=== PATIENT | female | born 1950 | race Caucasian/White ===

== ENCOUNTER 2017-09-09 10:12 | Inpatient (IN) | payer OTHER, MEDICARE ==
[2017-09-09] VITALS (19 sets, daily range): BP systolic 82–146; BP diastolic 59–86; PULSE 89–140; RESP 15–41; TEMP 97.8–98.6; O2SAT 83–100
[~2017-09-09] VITALS: Ht 167.6 cm; Wt 79.0 kg
[~2017-09-09 10:12] MED LIST: LORT5TAB PO; NAPR550 PO
[2017-09-09] MEDS ORDERED: ASPIRIN 81 MG CHEW TAB PO STA (10:20)
[2017-09-09] MEDS ORDERED: NITROGLYCERIN 0.4 MG SL 25 TABS/BTL SL STA (10:20)
[2017-09-09] MEDS ORDERED: SODIUM CHLOR 0.9% 1000 ML INJ 1,000 ML IV ONE (10:20)
[2017-09-09] MEDS ORDERED: HEPARIN SODIUM - IV 10,000 UNITS/10 ML VIAL IV PUSH STA (10:20)
[2017-09-09] MEDS ORDERED: NITROGLYCERIN-D5W 50 MG/250 ML 250 ML IV PRN (10:30)
[2017-09-09] MEDS ORDERED: SODIUM CHLORIDE 0.9% FLUSH 10 ML FLUSH IVF PRN (10:30)
[2017-09-09] MEDS ORDERED: METOPROLOL TARTRATE 5 MG/5 ML VIAL IV PUSH ONE (10:30)
[2017-09-09 10:47] LABS: AUTOMATED NEUTROPHIL # 10.1 TH/MM3 (1.8-7.7); BASOPHIL # 0.1 TH/MM3 (0-0.2); BASOPHIL % 0.9 % (0.0-2.0); EOSINOPHIL # 0.1 TH/MM3 (0-0.4); EOSINOPHIL % 0.4 % (0.0-4.0); HEMOGLOBIN 16.1 GM/DL (11.6-15.3); LYMPH % 17.5 % (9.0-44.0); LYMPHOCYTE # 2.5 TH/MM3 (1.0-4.8); MEAN CORPUSCULAR HEMOGLOBIN 35.3 PG (27.0-34.0); MEAN CORPUSCULAR HGB CONC 34.9 % (32.0-36.0); MEAN PLATELET VOLUME 9.1 FL (7.0-11.0); MONO % 9.9 % (0.0-8.0); MONOCYTE # 1.4 TH/MM3 (0-0.9); NEUT % 71.3 % (16.0-70.0); PLATELET COUNT 236 TH/MM3 (150-450); RED BLOOD COUNT 4.55 MIL/MM3 (4.00-5.30); RED CELL DISTRIBUTION WIDTH 13.5 % (11.6-17.2); WHITE BLOOD COUNT 14.1 TH/MM3 (4.0-11.0)
--- NOTE | 2017-09-09 10:52 | RADRPT ---
EXAM DATE/TIME: 09/09/2017 10:26 [place] COMPARISON: No previous studies available for comparison. INDICATIONS : Stroke alert. MEDICAL HISTORY : Non-responsive SURGICAL HISTORY : Non-responsive. ENCOUNTER: Initial ACUITY: 1 day PAIN SCORE: Non-responsive. LOCATION: Bilateral chest FINDINGS: The lungs are well-inflated. Mild bilateral basal atelectasis. Heart size is moderately enlarged with atherosclerosis is seen within the aortic arch. Prominence of pulmonary vasculature. Osseous structu res are intact. CONCLUSION: Mild cardiomegaly. Cephalization of pulmonary vasculature may be related to volume overload or conges tive heart failure. Danni Rhodes MD on September 09, 2017 at 10:48 Board Certified Radiologist. This report was verified electronically.
[2017-09-09 10:55] LABS: PROTHROMBIN TIME - PATIENT 10.1 SEC (9.8-11.6)
[2017-09-09] MEDS ORDERED: ONDANSETRON HCL 4 MG/2 ML VIAL IV PUSH ONE (11:00)
[2017-09-09 11:07] LABS: CALCIUM 10.2 MG/DL (8.5-10.1); MAGNESIUM 1.6 MG/DL (1.5-2.5)
[2017-09-09 11:15] LABS: TROPONIN I 6.78 NG/ML (0.02-0.05)
[2017-09-09] MEDS: HEPARIN-D5W 25,000 U/250 ML 250 ML IV PRN (11:17)
--- NOTE | 2017-09-09 11:57 | PD ---
HPI Chief Complaint: STEMI Alert Time Seen by Provider: 10:15 Travel History International Travel<30 days: No Contact w/Intl Traveler<30days: No Traveled to known affect area: No History of Present Illness HPI 66-year-old female was brought to the emergency room emergently for chest pain radiating down her left arm as a possible STEMI alert identified by the paramedics with their twelve-lead EKG. Patient has never had coronary artery disease history but does not go to see a primary care either. She is not on any medications and she is a smoker. Patient told me that the pain has been going on for past 2 days and has been continuous. She appeared to be in significant distress and said she was having hard time breathing. She kept trying to sit up in order to get a comfortable position. Patient was tachycardic on the monitor with heart rate in 140s. Blood pressure was not recording by the monitor but manual blood pressure was 90 systolic initially. Patient had received 4 aspirin and 1 sublingual nitro. It was hard to get any further history than this from the patient given her respiratory distress and anxiety. [facility] Past Medical History Narrative Medical List of her past medical, surgical, social and family history is reviewed from the nursing note. Cardiovascular Problems: Yes Diminished Hearing: No Hypertension: Yes Menopausal: No : 1 Para: 1 Tubal Ligation: Yes Past Surgical History Appendectomy: Yes (OVARY REMOVED AT THIS TIME) Social History Alcohol Use: Yes (WINE EVERY NIGHT) Tobacco Use: Yes (1 PPD) Substance Use: No Allergies-Medications (Allergen,Severity, Reaction): Coded Allergies: No Known Allergies (Verified Allergy, Unknown, 09/09/17) Comments No known drug allergies. Reported Meds & Prescriptions Reported Meds & Active Scripts Active No Active Prescriptions or Reported Medications Narrative Medication List of his home medications reviewed from the nursing note. Review of Systems Except as stated in HPI: all other systems reviewed are Neg Cardiovascular: Positive: Chest Pain or Discomfort Respiratory: Positive: Shortness of Breath Physical Exam Narrative GENERAL: Awake, extremely anxious, significant distress SKIN: Focused skin assessment warm/dry. Pale HEAD: Atraumatic. Normocephalic. EYES: Pupils equal and round. No scleral icterus. No injection or drainage. ENT: No nasal bleeding or discharge. Mucous membranes pink and moist. NECK: Trachea midline. No JVD. CARDIOVASCULAR: Regular rate and rhythm. No murmur appreciated. RESPIRATORY: No accessory muscle use. Decreased air entry bilaterally GASTROINTESTINAL: Abdomen soft, non-tender, nondistended. Hepatic and splenic margins not palpable. MUSCULOSKELETAL: No obvious deformities. No clubbing. No cyanosis. No edema. NEUROLOGICAL: Awake and alert. No obvious cranial nerve deficits. Motor grossly within normal limits. Normal speech. PSYCHIATRIC: Appropriate mood and affect; insight and judgment normal. Data Data Last Documented VS Vital Signs Date Time Temp Pulse Resp B/P (MAP) Pulse Ox O2 Delivery O2 Flow Rate FiO2 09/09/17 11:18 107 36 105/75 (85) 100 BiPAP 100 09/09/17 10:25 4.00 09/09/17 10:16 98.6 Orders Orders Troponin I (09/09/17 10:20) Ckmb (Isoenzyme) Profile (09/09/17 10:20) Complete Blood Count With Diff (09/09/17 10:20) I-Stat Profile (09/09/17 10:20) I-Stat Creatinine (09/09/17 10:20) Calcium (09/09/17 10:20) Magnesium (Mg) (09/09/17 10:20) Prothrombin Time / Inr (Pt) (09/09/17 10:20) Act Partial Throm Time (Ptt) (09/09/17 10:20) B-Type Natriuretic Peptide (09/09/17 10:20) Chest, Single Ap (09/09/17 10:20) Electrocardiogram (09/09/17 10:20) Oxygen Administration (09/09/17 10:20) Iv Access Insert/Monitor (09/09/17 10:20) Oximetry (09/09/17 10:20) Sodium Chlor 0.9% 1000 Ml Inj (Ns 1000 M (09/09/17 10:20) Sodium Chloride 0.9% Flush (Ns Flush) (09/09/17 10:30) Aspirin Chew (Aspirin Chew) (09/09/17 10:20) Nitroglycerin Sl (Nitrostat Sl) (09/09/17 10:20) Nitroglycerin-D5w 50 Mg/250 Ml (Nitrogly (09/09/17 10:30) Heparin Inj (Heparin Inj) (09/09/17 10:20) Resp Bipap / Cpap Non Invas Vt (09/09/17 ) Metoprolol Tartrate Inj (Lopressor Inj) (09/09/17 10:30) Heparin-D5w 25,000 U/250 Ml (Heparin-D5w (09/09/17 10:45) Cbc No Diff, Includes Plts (09/12/17 06:00) Act Partial Throm Time (Ptt) (09/09/17 17:31) Occult Blood (Hemoccult) Stool (09/09/17 10:31) Ondansetron Inj (Zofran Inj) (09/09/17 11:00) Arterial Blood Gas (Abg) (09/09/17 10:55) CKMB (09/09/17 10:25) CKMB% (09/09/17 10:25) Furosemide Inj (Lasix Inj) (09/09/17 18:00) Echo 2d Comp With Doppler (09/09/17 ) Aspirin Ec (Ecotrin Ec) (09/10/17 09:00) Consent (09/09/17 11:33) Teaching Record: Cardiac Educa [place].Q12H (09/09/17 11:33) ^ Preps (09/09/17 11:33) ^ Preps (09/09/17 11:33) Bedside Glucose .Prior to procedure (09/09/17 11:33) Diet Npo Except Meds (09/10/17 Breakfast) Tool Planner / Telemetry AMERICA.Q8H (09/09/17 11:33) Admit Order (Ed Use Only) (09/09/17 11:57) Labs Laboratory Tests Test 09/09/17 10:25 09/09/17 10:55 White Blood Count 14.1 TH/MM3 Red Blood Count 4.55 MIL/MM3 Hemoglobin 16.1 GM/DL Bedside Hemoglobin 16.0 G/DL Hematocrit 46.0 % Bedside Hematocrit 47.0 % Mean Corpuscular Volume 101.0 FL Mean Corpuscular Hemoglobin 35.3 PG Mean Corpuscular Hemoglobin Concent 34.9 % Red Cell Distribution Width 13.5 % Platelet Count 236 TH/MM3 Mean Platelet Volume 9.1 FL Neutrophils (%) (Auto) 71.3 % Lymphocytes (%) (Auto) 17.5 % Monocytes (%) (Auto) 9.9 % Eosinophils (%) (Auto) 0.4 % Basophils (%) (Auto) 0.9 % Neutrophils # (Auto) 10.1 TH/MM3 Lymphocytes # (Auto) 2.5 TH/MM3 Monocytes # (Auto) 1.4 TH/MM3 Eosinophils # (Auto) 0.1 TH/MM3 Basophils # (Auto) 0.1 TH/MM3 CBC Comment DIFF FINAL Differential Comment Prothrombin Time 10.1 SEC Prothromb Time International Ratio 1.0 RATIO Activated Partial Thromboplast Time 27.5 SEC Bedside Sodium 132 MMOL/L Bedside Potassium 4.6 MMOL/L Bedside Chloride 100 MMOL/L Bedside Blood Urea Nitrogen 8 MG/DL Bedside Creatinine 0.6 MG/DL Bedside Glucose 180 MG/DL Calcium Level 10.2 MG/DL Magnesium Level 1.6 MG/DL Total Creatine Kinase 534 U/L Creatine Kinase MB 57.4 NG/ML Creatine Kinase MB % 10.7 % Troponin I 6.78 NG/ML B-Type Natriuretic Peptide 1540 PG/ML Blood Gas Puncture Site LT RADIAL Blood Gas Patient Temperature 98.6 Blood Gas HCO3 20 mmol/L Blood Gas Base Excess -5.1 mmol/L Blood Gas Oxygen Saturation 93 % Arterial Blood pH 7.31 Arterial Blood Partial Pressure CO2 41 mmHg Arterial Blood Partial Pressure O2 87 mmHG Arterial Blood Oxygen Content 20.7 Vol % Arterial Blood Carboxyhemoglobin 1.6 % Arterial Blood Methemoglobin 0.8 % Blood Gas Hemoglobin 15.8 G/DL Oxygen Delivery Device BiPAP Blood Gas Ventilator Setting [id number] Blood Gas Inspired Oxygen 100 % [facility] Medical Decision Making Medical Screen Exam Complete: Yes Emergency Medical Condition: Yes Medical Record Reviewed: Yes Interpretation(s) Twelve-lead EKG was reviewed by me. Normal sinus rhythm, tachycardia, ST elevation in V1 and V2, Q waves in V1 and V2, normal axis. Heart rate of 140 bpm. Differential Diagnosis Q-wave WI, STEMI, pulmonary edema Narrative Course 11:48 AM based on the EKG and her presentation I called a STEMI alert. Patient' s last old EKG in our system was from 2007 which showed normal QRS complexes. I discussed the case with Dr. Boyce and he did not want the patient to go to the [employer] [facility] right away. His reasoning was the Q waves and patient being tachycardic. He wanted the patient to be stabilized. Please refer to his dictation as well. Patient was given heparin, Lopressor to bring the heart rate down and was started on BiPAP by me. Currently she is doing much better. Heart rate is down to 100s. Blood pressure has improved and patient says she feels better. Chest pain I was told by the nurse has subsided to some extent although it still there. Patient will be going to the intensive care unit. I discussed the case with Dr. Nix from ICU. He has accepted the case. Chest x- ray shows congestive heart failure. Troponin came back critically high. Critical Care Narrative Aggregate critical care time was 60 minutes. Time to perform other separately billable procedures was not included in the critical care time. My time did not include minutes spent treating any other patients simultaneously or on activities that did not directly contribute to the patient's treatment. The services I provided to this patient were to treat and/or prevent clinically significant deterioration that could result in: ST elevation WI with Q waves, heparin bolus and drip, severe respiratory distress, BiPAP I provided critical care services requiring my management, as noted below: Chart data review, documentation time, medication orders and management, vital sign assessments/reviewing monitor data, ordering and reviewing lab tests, ordering and interpreting/reviewing x-rays and diagnostic studies, care of the patient and discussion of the patient with the admitting physicians. Procedures EKG Prior to Arrival: Yes Physician Communication Physician Communication Dr. Boyce, Dr. Nix Diagnosis Primary Impression: ST elevation WI (STEMI) Qualified Codes: I21.02 - ST elevation (STEMI) myocardial infarction involving left anterior descending coronary artery Additional Impressions: Acute Q wave myocardial infarction Respiratory disease Congestive heart failure Qualified Codes: I50.9 - Heart failure, unspecified Admitting Information Admitting Physician Requests: Admit Scripts No Active Prescriptions or Reported Meds Srinivasa Chen MD Sep 09, 2017 11:57
--- NOTE | 2017-09-09 12:19 | MB ---
cc: Manuel Boyce MD DATE: 09/09/2017 INDICATION: Shortness of breath. HISTORY OF PRESENT ILLNESS: This is a 66-year-old female who does not have routine medical care or followup, presents now with approximately 48 hours of progressive chest pain radiating towards the left arm. She states these symptoms are somewhat intermittent, but worsening over the course of the past 2 days. This morning, she presented to the emergency department because she felt that her breathing was significantly worse. She thought this substernal chest pain was consistent more with heartburn type symptoms, so she had been treating it conservatively until she became so short of breath she came in to the ER. Initial electrocardiogram showed ST elevation in V1 and V2, but there are Q-waves to the early precordial leads with poor R-wave progression. She did get 1 sublingual nitro and her symptoms have pretty much now almost resolved in terms of the chest pain, but she is still pretty short of breath. She is suddenly hypotensive now. 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 PAST MEDICAL HISTORY: Hypertension, tubal ligation. SOCIAL HISTORY: Occasional alcohol use. Tobacco use with about half a pack to a pack a day. Denies any drug use. ALLERGIES: NO KNOWN DRUG ALLERGIES. MEDICATIONS: None. REVIEW OF SYSTEMS: A 12-point review of systems was performed, negative unless otherwise noted in history of present illness. PHYSICAL EXAMINATION: VITAL SIGNS: Heart rate is 108, blood pressure is 105/75 mmHg. She is on BiPAP with pulse oximetry of 100% with FiO2 100%. GENERAL: She is in mild distress. HEENT: Shows pupils reactive to light and accommodation, extraocular movements are intact. Jugular veins are not well appreciated. She is sitting up with BiPAP on. No carotid bruits. LUNGS: Clear to auscultation bilaterally. Decreased breath sounds throughout, but bibasilar crackles through the lower third of the lung milan. CARDIOVASCULAR: Distant heart sounds. Appears to be regular, tachycardic. No significant murmurs. ABDOMEN: Nontender, nondistended. Good bowel sounds. No hepatosplenomegaly. EXTREMITIES: Show no clubbing, cyanosis, or edema. Good peripheral pulses. NEUROLOGIC: Cranial nerves intact. Motions are grossly intact. LABORATORY DATA: WBC 14.1, hemoglobin 16.1, platelet count is 236. INR is 1.0. Sodium 132, potassium 4.6, BUN is 8, creatinine 0.6. Troponin 6.78. BNP 1540. ELECTROCARDIOGRAM: Shows sinus tachycardia, [address] elevation in V2, V1, Q-waves V1 through V3 with poor R-wave progression. ASSESSMENT: 1. Acute coronary syndrome with acute coronary syndrome/myocardial infarction. 2. History of hypertension. 3. Congestive heart failure. 4. Acute respiratory distress. PLAN: At this point, chest pain symptoms have pretty much resolved. It appears that she has had symptoms ongoing greater than 12 hours and closer to 2 days. She has some Q-waves through the early precordial leads with poor R-wave progression, suggesting that she has a relatively complete infarct pattern. Peer reviewed medical literature would suggest that in an asymptomatic individual greater than 12 hours of onset, emergent revascularization would not be clinically indicated. Troponin is elevated. I will see how she progresses here over the course of today. I would like to see if we can get her breathing a little bit more comfortable. She is clearly not going to be able to lie flat potentially for any procedure if we needed to and I would like to avoid intubation. Given that her chest pain is now resolved, we will give her a heparin drip and try to diurese her and see if her breathing improves. I still think she will need a cardiac catheterization when she is more clinically stable so we can determine what her coronary anatomy is. I am going to get a 2-D echocardiogram now to evaluate ejection fraction and regional wall motion abnormalities. No antihypertensive such as beta-shun or JORGE inhibitor for now, given her hypotension. We will initiate aspirin. Hold off on any Plavix until we know the coronary anatomy. Manuel Boyce MD ALEX/TI , 11:33 AM , 12:18 PM
--- NOTE | 2017-09-09 12:27 | HHI.HP ---
[facility] Service Critical Care Medicine Primary Care Physician Unknown Admission Diagnosis ST elevation PA, Q wave PA, congestive heart failure, respiratory to Diagnosis: (1) ST elevation PA (STEMI) Diagnosis: Principal (2) Acute respiratory failure with hypoxia and hypercapnia Diagnosis: Principal (3) Hypotension Diagnosis: Principal (4) History of hypertension Diagnosis: Secondary (5) Elevated CPK Diagnosis: Principal (6) Elevated troponin Diagnosis: Principal (7) Hyponatremia Diagnosis: Secondary (8) Macrocytosis without anemia Diagnosis: Secondary (9) Leukocytosis Diagnosis: Secondary (10) Tobacco abuse Diagnosis: Principal (11) Acute Q wave myocardial infarction Diagnosis: Secondary (12) Hyperglycemia Diagnosis: Principal (13) SIRS due to non-infectious process without acute organ dysfunction Diagnosis: Principal Chief Complaint: Chest pain and shortness of breath Travel History International Travel<30 Days: No Contact w/Intl Traveler <30 Da: No Traveled to Known Affected Are: No Sepsis Criteria SIRS Criteria (2 or more): Heart rate over 90, WBC > 42731, < 4000 or > 10% bands Criteria Outcome: Meets SIRS criteria History of Present Illness This is a 66-year-old female. Date of admission 09/09/2017.. Past medical history includes hypertension and ongoing tobaccoism. She presents today to the [facility] emergency room emergently for chest pain radiating down her left arm as a possible STEMI alert identified by the paramedics with their twelve-lead EKG. history of tobaccoism prior hypertension which she does not want take any medication. This chest pain with left-sided radiation has been ongoing for the past 48 hours/continuous running a 5 out of 10 on a scale of 1-10 obvious tachypnea upon presentation. Also tachycardic with heart rate in 140s. Initial blood pressure systolic was 90 patient had received 4 81 mg tablets aspirin and 1 0.4 mg sublingual nitro. It was hard to get any further history than this from the patient given her respiratory distress and anxiety. EKG revealed ST elevation in leads V1 and V2 with Q waves. STEMI alert was called. Patient worsening hypoxia and was started on BiPAP. Respiratory rate initially in the 40s currently about 25 and patient "feels better". Was evaluated by Dr. Boyce. Wishes perform heart catheterization 4/9 a.m. Started on aspirin 81 mg daily furosemide 40 mg IV twice daily. Patient's current heparin drip at thousand units an hour. Cannot give nitroglycerin drip due to hypotension. As tolerated metoprolol tartrate 2.5 mg IV every 6 hours Review of Systems Constitutional: COMPLAINS OF: Fatigue, Weight gain, DENIES: Fever, Weight loss Endocrine: DENIES: Polydipsia, Polyuria Eyes: DENIES: Blurred vision, Eye pain Ears, nose, mouth, throat: DENIES: Tinnitus Respiratory: COMPLAINS OF: Shortness of breath, DENIES: Apneas, Hemoptysis, Sputum production Cardiovascular: COMPLAINS OF: Chest pain Gastrointestinal: DENIES: Abdominal pain, Nausea, Vomiting Genitourinary: DENIES: Urinary frequency, Urinary incontinence Musculoskeletal: DENIES: Joint pain Integumentary: DENIES: Abnormal pigmentation Hematologic/lymphatic: DENIES: Bruising Immunologic/allergic: DENIES: Eczema Neurologic: DENIES: Abnormal gait Psychiatric: DENIES: Anxiety, Confusion Past Family Social History Allergies: Coded Allergies: No Known Allergies (Verified Allergy, Unknown, 09/09/17) Past Medical History Hypertension Tobacco abuse Past Surgical History Ectopic Appendectomy Oophorectomy Reported Medications Aleve as needed Active Ordered Medications Reviewed in EMR Family History Father with myocardial infarction. Social History Occasional social alcohol use. One pack per day tobacco 40 years. Denies IV drug use Physical Exam Vital Signs Vital Signs Date Time Temp Pulse Resp B/P (MAP) Pulse Ox O2 Delivery O2 Flow Rate FiO2 09/09/17 11:18 107 36 105/75 (85) 100 BiPAP 100 09/09/17 11:00 104 32 101/86 (91) 100 BiPAP 100 09/09/17 10:47 105 34 96/70 (79) 100 BiPAP 100 09/09/17 10:41 105 30 93/70 (78) 100 BiPAP 09/09/17 10:36 108 41 88/67 (74) 100 BiPAP 09/09/17 10:28 100 BiPAP 09/09/17 10:25 95 100 09/09/17 10:25 Nasal Cannula 4.00 09/09/17 10:19 36 Nasal Cannula 4.00 09/09/17 10:19 136 37 83 Nasal Cannula 4.00 09/09/17 10:16 98.6 140 36 146/77 (100) 97 Physical Exam GENERAL: 66-year-old female currently on BiPAP in moderate respiratory distress SKIN: Warm and dry. HEAD: Atraumatic. Normocephalic. EYES: Pupils equal and round about 3 mm bilaterally and react. No scleral icterus. No injection or drainage. ENT: No nasal bleeding or discharge. Mucous membranes pink and moist. NECK: Trachea midline. No JVD. CARDIOVASCULAR: Tachycardic, RR. S1, S2. No S4. Questionable S3. Without murmur RESPIRATORY: Coarse crackles appreciated bilateral lower lobes. No wheezing is appreciated GASTROINTESTINAL: Abdomen soft, non-tender, nondistended. Hypoactive bowel sounds appreciated MUSCULOSKELETAL: Extremities trace to 1+ bilateral lower extremity edema. No obvious deformities. NEUROLOGICAL: Awake and alert. No obvious cranial nerve deficits. Motor grossly within normal limits. Five out of 5 muscle strength in the arms and legs. Normal speech. Laboratory Laboratory Tests Test 09/09/17 10:25 09/09/17 10:55 White Blood Count 14.1 Red Blood Count 4.55 Hemoglobin 16.1 Bedside Hemoglobin 16.0 Hematocrit 46.0 Bedside Hematocrit 47.0 Mean Corpuscular Volume 101.0 Mean Corpuscular Hemoglobin 35.3 Mean Corpuscular Hemoglobin Concent 34.9 Red Cell Distribution Width 13.5 Platelet Count 236 Mean Platelet Volume 9.1 Neutrophils (%) (Auto) 71.3 Lymphocytes (%) (Auto) 17.5 Monocytes (%) (Auto) 9.9 Eosinophils (%) (Auto) 0.4 Basophils (%) (Auto) 0.9 Neutrophils # (Auto) 10.1 Lymphocytes # (Auto) 2.5 Monocytes # (Auto) 1.4 Eosinophils # (Auto) 0.1 Basophils # (Auto) 0.1 CBC Comment DIFF FINAL Differential Comment Prothrombin Time 10.1 Prothromb Time International Ratio 1.0 Activated Partial Thromboplast Time 27.5 Bedside Sodium 132 Bedside Potassium 4.6 Bedside Chloride 100 Bedside Blood Urea Nitrogen 8 Bedside Creatinine 0.6 Bedside Glucose 180 Calcium Level 10.2 Magnesium Level 1.6 Total Creatine Kinase 534 Creatine Kinase MB 57.4 Creatine Kinase MB % 10.7 Troponin I 6.78 B-Type Natriuretic Peptide 1540 Blood Gas Puncture Site LT RADIAL Blood Gas Patient Temperature 98.6 Blood Gas HCO3 20 Blood Gas Base Excess -5.1 Blood Gas Oxygen Saturation 93 Arterial Blood pH 7.31 Arterial Blood Partial Pressure CO2 41 Arterial Blood Partial Pressure O2 87 Arterial Blood Oxygen Content 20.7 Arterial Blood Carboxyhemoglobin 1.6 Arterial Blood Methemoglobin 0.8 Blood Gas Hemoglobin 15.8 Oxygen Delivery Device BiPAP Blood Gas Ventilator Setting IPAP12/[id number] Blood Gas Inspired Oxygen 100 Result Diagram: 09/09/17 1025 Imaging Last Impressions Chest X-Ray 09/09/17 1020 Signed Impressions: Service Date/Time: Saturday, September 09, 2017 10:26 - CONCLUSION: Mild cardiomegaly. Cephalization of pulmonary vasculature may be related to volume overload or congestive heart failure. Danni Rhodes MD Septic Shock Reassessment Septic shock perfusion: reassessment completed Caprini VTE Risk Assessment Caprini VTE Risk Assessment: Mod/High Risk (score >= 2) Caprini Risk Assessment Model Point Value = 1 Point Value = 2 Point Value = 3 Point Value = 5 Age 41-60 Minor surgery BMI > 25 kg/m2 Swollen legs Varicose veins or History of unexplained or recurrent spontaneous Oral contraceptives or hormone replacement Sepsis (< 1 month) Serious lung disease, including pneumonia (< 1 month) Abnormal pulmonary function Acute myocardial infarction Congestive heart failure (< 1 month) History of inflammatory bowel disease Medical patient at bed rest Age 61-74 Arthroscopic surgery Major open surgery (> 45 min) Laparoscopic surgery (> 45 min) Malignancy Confined to bed (> 72 hours) Immobilizing plaster cast Central venous access Age >= 75 History of VTE Family history of VTE Factor V Leiden Prothrombin [id number] Lupus anticoagulant Anticardiolipin antibodies Elevated serum homocysteine Heparin-induced thrombocytopenia Other congenital or acquired thrombophilia Stroke (< 1 month) Elective arthroplasty Hip, pelvis, or leg fracture Acute spinal cord injury (< 1 month) Prophylaxis Regimen Total Risk Factor Score Risk Level Prophylaxis Regimen 0-1 Low Early ambulation 2 Moderate Order ONE of the following: *Sequential Compression Device (SCD) *Heparin 5000 units SQ BID 3-4 Higher Order ONE of the following medications: *Heparin 5000 units SQ TID *Enoxaparin/Lovenox 40 mg SQ daily (WT < 150 kg, CrCl > 30 mL/min) *Enoxaparin/Lovenox 30 mg SQ daily (WT < 150 kg, CrCl > 10-29 mL/min) *Enoxaparin/Lovenox 30 mg SQ BID (WT < 150 kg, CrCl > 30 mL/min) AND/OR *Sequential Compression Device (SCD) 5 or more Highest Order ONE of the following medications: *Heparin 5000 units SQ TID (Preferred with Epidurals) *Enoxaparin/Lovenox 40 mg SQ daily (WT < 150 kg, CrCl > 30 mL/min) *Enoxaparin/Lovenox 30 mg SQ daily (WT < 150 kg, CrCl > 10-29 mL/min) *Enoxaparin/Lovenox 30 mg SQ BID (WT < 150 kg, CrCl > 30 mL/min) AND *Sequential Compression Device (SCD) Assessment and Plan Assessment and Plan Neuro/Psych: Acetaminophen 650 mg p.o. every 6 hours as needed fever Hydrocodone/acetaminophen 5/325 1 tablet every 4 hours as needed pain 1 through 5 Morphine sulfate 2 mg IV every 2 hours as needed pain 6 or 10 CV: Anterior STEMI Hypotension History of hypertension Elevated CPK/troponin of 6.78 C3 and 24 mg of aspirin, 0.4 mg nitroglycerin in ED. Scheduled for aspirin 81 mg p.o. daily Currently on metoprolol tartrate 2.5 mg IV every 6 hours Continue heparin drip at 1000 units an hour If tolerated start nitroglycerin drip for pain management Bedside echocardiogram results pending. Ejection fraction appears less than 30% Check lipid panel. Started on atorvastatin 40 mg by mouth at night Cycle troponins with EKG in a.m. Dr. Boyce plans catheterization a.m. 09/10 Can not give JORGE inhibitor secondary to hypotension Resp: Acute hypoxic hypercapnic respiratory failure Ongoing tobaccoism BiPAP 05/09 at 100% Albuterol/ipratropium aerosols every 6 hours with albuterol aerosols every 2 hours as needed for dyspnea Chest x-ray admission revealed pulmonary congestion bilaterally. Given 40 mg of furosemide in ED 1. Tobacco's educational self-education cessation booklet provided when clinically stable GI: Patient is currently n.p.o. except for medications Famotidine for GI prophylaxis Docusate sodium/senna 1 tablet twice daily for bowel regimen : Phipps catheter if indicated for accurate I's and O's in a critical patient receiving diuretics Endo: Mild stress hyperglycemia Sliding scale insulin with Accu-Cheks before meals/at bedtime to maintain euglycemia/low regimen of NovoLog Check hemoglobin A1c and TSH Renal: Creatinine currently within normal limits Monitor urine output while on diuretics Accurate I's and O's Heme: Leukocytosis Macrocytosis Monitor CBC daily. Follow trends Currently on heparin drip ID: Monitor for signs and symptoms of infection MSK: PT evaluate and treat FEN: Hyponatremia Follow-up on BMP in a.m. especially since on furosemide Electrolyte ICU protocol initiated Access -Utilize peripheral IV. Central and if indicated Prophylaxis -GI -famotidine -DVT -SCD/heparin drip Critical Care: The total critical care time was 35 minutes. Time to perform other separately billable procedures was not included in the critical care time. Code Status Full code Discussed Condition With Dr. Chen. Patient and daughter at bedside. Care plan discussed and all questions answered. Problem Qualifiers (1) ST elevation PA (STEMI): Qualified Codes: I21.02 - ST elevation (STEMI) myocardial infarction involving left anterior descending coronary artery (2) Hypotension: Qualified Codes: I95.9 - Hypotension, unspecified (3) Leukocytosis: Qualified Codes: D72.829 - Elevated white blood cell count, unspecified Prasanth Nix MD Sep 09, 2017 12:27
[2017-09-09] MEDS ORDERED: SODIUM CHLORIDE 0.9% FLUSH 10 ML FLUSH IV FLUSH PRN (12:30)
[2017-09-09] MEDS ORDERED: SENNOSIDES 8.6 MG TAB PO PRN (12:30)
[2017-09-09] MEDS ORDERED: CHLORHEXIDINE GLUCONATE 2 % 1 PACK (2 CLOTHS) TOP PRN (12:30)
[2017-09-09] MEDS ORDERED: MISCELLANEOUS NURSING INFORMATION XX SCH (12:30)
[2017-09-09] MEDS ORDERED: MAGNESIUM SULFATE INJ 2 GM in SODIUM CHLORIDE 0.9% INJ 96 ML IV PRN (12:45)
[2017-09-09] MEDS ORDERED: POTASSIUM PHOSPHATE INJ 30 MMOL in SODIUM CHLOR 0.9% 250 ML INJ 250 ML IV PRN (12:45)
[2017-09-09] MEDS ORDERED: MAGNESIUM SULFATE INJ 4 GM in SODIUM CHLORIDE 0.9% INJ 92 ML IV PRN (12:45)
[2017-09-09] MEDS ORDERED: GLUCAGON 1 MG/ML VIAL OTHER PRN (12:45)
[2017-09-09] MEDS ORDERED: POTASSIUM CHLORIDE 25 MEQ EFFERVESCENT TAB PO PRN (12:45)
[2017-09-09] MEDS ORDERED: DEXTROSE 50% IN WATER 50 ML VIAL(D50) IV PUSH PRN (12:45)
[2017-09-09] MEDS ORDERED: MAGNESIUM OXIDE 400 MG TAB PO PRN (12:45)
[2017-09-09] MEDS ORDERED: POTASSIUM PHOSPHATE MONOBASIC 500 MG TAB PO PRN (12:45)
[2017-09-09] MEDS ORDERED: POTASSIUM CHLOR 40 MEQ PREMIX 100 ML IV PRN ×2 (12:45→14:00)
[2017-09-09] MEDS ORDERED: POTASSIUM PHOSPHATE MONOBASIC 500 MG TAB PO/TUBE PRN (12:45)
[2017-09-09] MEDS ORDERED: POTASSIUM CHLOR 20 MEQ PREMIX 100 ML IV PRN (12:45)
--- NOTE | 2017-09-09 12:57 | ECHRPT ---
Indication: HEART FAILURE CONCLUSIONS Moderately dilated left ventricle. Wall thickness is normal. The left ventricular systolic function is severely reduced with an estimated ejection fraction less than 20%. There is global left ventricular dysfunction. The left atrial size is mildly dilated. Mild thickening of the mitral valve leaflets. Mild mitral annular calcification. Mild mitral valve regurgitation. The aortic valve is not well visualized. Diffuse calcification of the aortic valve. No aortic valve regurgitation. No aortic valve stenosis. There is trace tricuspid valve regurgitation. The estimated pulmonary arterial pressure is 53 mmHg. BP: / HR: Rhythm: MEASUREMENTS (Male / Female) Normal Values Technical Quality: 2D ECHO LV Diastolic Diameter PLAX 4.6 cm 4.2 - 5.9 / 3.9 - 5.3 cm LV Systolic Diameter PLAX 4.3 cm IVS Diastolic Thickness 1.3 cm 0.6 - 1.0 / 0.6 - 0.9 cm LVPW Diastolic Thickness 0.9 cm 0.6 - 1.0 / 0.6 - 0.9 cm LV Relative Wall Thickness 0.5 RV Internal Dim ED PLAX 1.9 cm LA Systolic Diameter LX 3.5 cm 3.0 - 4.0 / 2.7 - 3.8 cm DOPPLER Mitral E Point Velocity 66.5 cm/s Mitral A Point Velocity 69.2 cm/s Mitral E to A Ratio 1.0 TR Peak Velocity 349.0 cm/s TR Peak Gradient 48.7 mmHg Right Atrial Pressure 5.0 mmHg Pulmonary Artery Systolic Pressu 53.7 mmHg Right Ventricular Systolic Press 53.7 mmHg FINDINGS LEFT VENTRICLE Moderately dilated left ventricle. Wall thickness is normal. The left ventricular systolic function is severely reduced with an estimated ejection fraction less than 20%. There is global left ventricular dysfunction. RIGHT VENTRICLE Normal right ventricular size and systolic function. LEFT ATRIUM The left atrial size is mildly dilated. RIGHT ATRIUM The right atrial size is normal. ATRIAL SEPTUM Normal atrial septal thickness without atrial level shunting by limited color doppler interrogation. AORTA The aortic root and proximal ascending aorta are normal in size on limited imaging. MITRAL VALVE Mild thickening of the mitral valve leaflets. Mild mitral annular calcification. Mild mitral valve regurgitation. AORTIC VALVE The aortic valve is not well visualized. Diffuse calcification of the aortic valve. No aortic valve regurgitation. No aortic valve stenosis. TRICUSPID VALVE There is trace tricuspid valve regurgitation. The estimated pulmonary arterial pressure is 53 mmHg. PULMONARY VALVE No pulmonary valve regurgitation or stenosis. VESSELS The inferior vena cava is normal in size. PERICARDIUM No pericardial effusion. Manuel Boyce MD, FACC (Electronically Signed) Final Date:09 September 2017 12:55
[2017-09-09] MEDS ORDERED: RESP: ALBUTEROL 2.5 MG/3 ML NEB (PRN) INH (13:00)
[2017-09-09] MEDS ORDERED: ACETAMINOPHEN 325 MG TAB PO PRN (13:00)
[2017-09-09] MEDS ORDERED: BISACODYL 10 MG SUPP RECTAL PRN (14:00)
[2017-09-09] MEDS ORDERED: ONDANSETRON HCL 4 MG/2 ML VIAL IV PUSH PRN (14:00)
[2017-09-09] MEDS ORDERED: FUROSEMIDE 40 MG/4 ML VIAL IV PUSH ONE (14:00)
[2017-09-09] MEDS: METOPROLOL TARTRATE 5 MG/5 ML VIAL IV PUSH SCH ×2 (14:00→20:00)
[2017-09-09] MEDS ORDERED: MAGNESIUM HYDROXIDE SUSP 30 ML CUP PO PRN (14:00)
[2017-09-09] MEDS: RESP: ALBUTEROL 2.5 MG/IPRATROPIUM 0.5 MG NEB (SCH) INH ×2 (15:20→19:48)
--- NOTE | 2017-09-09 16:53 | EKG ---
Date Performed: 09/09/2017 Time Performed: 10:14:41 PTAGE: 66 years EKG: SINUS TACHYCARDIA WITH SHORT ND INTERVAL, POSSIBLE ATRIAL FLUTTER MARKED LEFT AXIS DEVIATIO N POSSIBLE RIGHT VENTRICULAR CONDUCTION DELAY LEFT VENTRICULAR HYPERTROPHY AND ST-T CHANGE POSSIBLE S EPTAL MYOCARDIAL INFARCTION ACUTE PR Compared to PREVIOUS TRACING , HR is much faster, there is an intraventricular conduction delay. All of these changes are new. Clinical correlation is recommended. Follow-up tracings recommended PREVIOU S TRACIN02/13/2008 @ 1124 DOCTOR: Scott Rodriguez Interpretating Date/Time 09/09/2017 16:52:16
--- NOTE | 2017-09-09 16:55 | EKG ---
Date Performed: 09/09/2017 Time Performed: 10:34:46 PTAGE: 66 years EKG: SINUS TACHYCARDIA POSSIBLE LEFT ATRIAL ENLARGEMENT POSSIBLE RIGHT VENTRICULAR CONDUCTION DE LAY LEFT ANTERIOR FASCICULAR BLOCK LEFT VENTRICULAR HYPERTROPHY AND ST-T CHANGE POSSIBLE ANTEROSEPTAL MYOCARDIAL INFARCTION THERE IS ST ELEVATION IN LEADS V1 AND V2 WITH Q WAVES IN THOSE LEADS AND POOR R WAVE PROGRESSION IN LEADS V3 AND V4. SEPTAL MT OF UNDETERMINED AGE WOULD BE LIKELY. Compared to pre vious tracing, HR HAS DECREASED FROM 142 TO 110. Sinus rhythm IS CLEARLY PRESENT ON THIS TRACING. Clinical correlation is recommended. FOLLOW-UP TRACING RECOMMEND ED ABNORMAL ECG PREVIOUS TRACING : 02/13/2008 11.24 DOCTOR: Scott Rodriguez Interpretating Date/Time 09/09/2017 16:54:04
[2017-09-09] MEDS: FUROSEMIDE 40 MG/4 ML VIAL IV PUSH SCH (18:36)
[2017-09-09] MEDS: INSULIN ASPART SUPPLEMENTAL SCALE SQ SCH ×2 (18:37→20:33)
[2017-09-09] MEDS: DOCUSATE SODIUM 50 MG/SENNA 8.6 MG TAB PO SCH (20:33)
[2017-09-09] MEDS: FAMOTIDINE 20 MG TAB PO SCH (20:33)
[2017-09-09] MEDS: SODIUM CHLORIDE 0.9% FLUSH 10 ML FLUSH IV FLUSH SCH (20:34)
[2017-09-09 22:04] LABS: CHOLESTEROL 261 MG/DL (120-200); TRIGLYCERIDES 227 MG/DL (42-150)
[2017-09-09 22:13] LABS: CHOLESTEROL/ HDL RATIO 5.31 RATIO; HDL CHOLESTEROL 49.1 MG/DL (40.0-60.0); LDL CHOLESTEROL 167 MG/DL (0-99)
[2017-09-09 22:26] LABS: TROPONIN I GREATER THAN 40.00 NG/ML (0.02-0.05)
[2017-09-09] MEDS: DOBUTamine PREMIX DRIP 250 ML IV PRN (22:41)
[2017-09-10] VITALS (13 sets, daily range): BP systolic 48–126; BP diastolic 32–76; PULSE 88–119; RESP 15–32; TEMP 97.9–99.9; O2SAT 92–96
[2017-09-10] MEDS ORDERED: TERBUTALINE INJ 1 MG/ML AMP SQ PRN
[2017-09-10] MEDS: NOREPINEPHRINE-DEXTROSE DRIP 250 ML IV PRN ×3 (00:06→17:00)
[2017-09-10 00:42] LABS: HEMATOCRIT 43.3 % (35.0-46.0); HEMOGLOBIN 14.9 GM/DL (11.6-15.3)
[2017-09-10] MEDS: METOPROLOL TARTRATE 5 MG/5 ML VIAL IV PUSH SCH ×3 (02:00→14:00)
--- NOTE | 2017-09-10 02:03 | PD.PROCEDR ---
Procedure Note Procedure DATE: 09/10/17 CENTRAL LINE PLACEMENT: Right internal jugular vein. INDICATION: Central venous access CONSENT Informed consent for procedure was obtained from patient after discussion of risk, benefits, alternatives. DESCRIPTION OF THE PROCEDURE The patient was placed in supine position, mild Trendelenburg. The skin was cleansed with Chloraprep 3. Additional barrier precautions included large sterile drape, sterile gloves, sterile gown, face mask, and hat. 1 % lidocaine was used for local anesthesia. Under direct ultrasound guidance and on single attempt, the vein was accessed with an introducer needle. The guide wire was advanced and the tract was dilated. Using Seldinger technique a 7 [place] 20 cm antimicrobial coated triple-lumen catheter was advanced to a depth of 18 centimeters. There was a run of PVCs, guidewire was removed and returned to sinus rhythm. All ports had good return of dark venous blood and flushed easily with saline. The central line was secured with Stat-lock. . A sterile dressing with antibiotic disc was applied. ESTIMATED BLOOD LOSS: Minimal COMPLICATIONS: PVCs, asymptomatic STAT chest x-ray demonstrates aspect or central venous line in position without apparent complication. Sallie Fields MD Sep 10, 2017 02:03
--- NOTE | 2017-09-10 02:11 | RADRPT ---
EXAM DATE/TIME: 09/10/2017 01:24 [place] COMPARISON: CHEST SINGLE AP, September 09, 2017, 10:26. INDICATIONS : Confirm central line placement. MEDICAL HISTORY : None. SURGICAL HISTORY : None. ENCOUNTER: Subsequent ACUITY: 1 day PAIN SCORE: 0/10 LOCATION: Bilateral chest FINDINGS: A single view of the chest demonstrates bibasilar densities. Right jugular central line with tip in t he SVC. No pneumothorax The cardiomediastinal contours are unremarkable. Osseous structures are inta ct. CONCLUSION: Bibasilar air space disease. Adequate placement of right jugular central line. Ector Burns MD on September 10, 2017 at 2:09 Board Certified Radiologist. This report was verified electronically.
[2017-09-10] MEDS: RESP: ALBUTEROL 2.5 MG/IPRATROPIUM 0.5 MG NEB (SCH) INH ×3 (03:50→21:18)
[2017-09-10] MEDS: CHLORHEXIDINE GLUCONATE 2 % 1 PACK (2 CLOTHS) TOP SCH (04:00)
[2017-09-10] MEDS: HEPARIN-D5W 25,000 U/250 ML 250 ML IV PRN (06:41)
[2017-09-10 06:45] LABS: PROTHROMBIN TIME - PATIENT 10.3 SEC (9.8-11.6)
[2017-09-10 06:48] LABS: AUTOMATED NEUTROPHIL # 6.7 TH/MM3 (1.8-7.7); BASOPHIL # 0.1 TH/MM3 (0-0.2); BASOPHIL % 0.6 % (0.0-2.0); EOSINOPHIL % 0.4 % (0.0-4.0); HEMATOCRIT 40.1 % (35.0-46.0); HEMOGLOBIN 13.9 GM/DL (11.6-15.3); LYMPH % 17.4 % (9.0-44.0); LYMPHOCYTE # 1.7 TH/MM3 (1.0-4.8); MEAN CELL VOLUME 99.8 FL (80.0-100.0); MEAN CORPUSCULAR HEMOGLOBIN 34.6 PG (27.0-34.0); MEAN CORPUSCULAR HGB CONC 34.6 % (32.0-36.0); MEAN PLATELET VOLUME 8.7 FL (7.0-11.0); MONO % 11.5 % (0.0-8.0); MONOCYTE # 1.1 TH/MM3 (0-0.9); NEUT % 70.1 % (16.0-70.0); PLATELET COUNT 193 TH/MM3 (150-450); RED BLOOD COUNT 4.02 MIL/MM3 (4.00-5.30); WHITE BLOOD COUNT 9.6 TH/MM3 (4.0-11.0)
[2017-09-10 07:26] LABS: ALBUMIN 3.1 GM/DL (3.4-5.0); ALKALINE PHOSPHATASE 87 U/L (45-117); ALT (GPT) 60 U/L (10-53); AST (GOT) 256 U/L (15-37); BICARBONATE 26.7 MEQ/L (21.0-32.0); BLOOD UREA NITROGEN 10 MG/DL (7-18); CHLORIDE 99 MEQ/L (98-107); CREATININE 0.77 MG/DL (0.50-1.00); GLOMERULAR FILTRATION RATE 75 ML/MIN (>89); GLUCOSE,RANDOM 177 MG/DL (74-106); MAGNESIUM 1.6 MG/DL (1.5-2.5); PHOSPHORUS 3.1 MG/DL (2.5-4.9); SODIUM (NA) 136 MEQ/L (136-145); TOTAL BILIRUBIN ADULT 0.7 MG/DL (0.2-1.0); TOTAL PROTEIN 7.1 GM/DL (6.4-8.2)
[2017-09-10] MEDS: INSULIN ASPART SUPPLEMENTAL SCALE SQ SCH ×4 (08:00→21:08)
--- NOTE | 2017-09-10 08:18 | PD.CARD.PN ---
Subjective Subjective Remarks shortness of breath much improved hypotensive on dobutamine gtt and low dose levophed Objective Medications Current Medications Medications (Trade) Dose Ordered Sig/Shraddha Route Start Time Stop Time Status Last Admin (NS Flush) 2 ml UNSCH PRN IVF 09/09/17 10:30 09/09/17 10:30 Nitroglycerin/ Dextrose 250 ml @ 3 mls/hr TITRATE PRN IV 09/09/17 10:30 Heparin Sodium/ Dextrose 250 ml @ 10 mls/hr TITRATE PRN IV 09/09/17 10:45 09/10/17 06:41 (Lasix Inj) 40 mg BID@18 IV PUSH 09/09/17 18:00 09/09/17 18:36 (Ecotrin Ec) 81 mg DAILY PO 09/10/17 09:00 (NS Flush) 2 ml UNSCH PRN IV FLUSH 09/09/17 12:30 (NS Flush) 2 ml BID IV FLUSH 09/09/17 21:00 09/09/17 20:34 (Tylenol) 650 mg Q6H PRN PO 09/09/17 13:00 09/09/17 18:16 ([place] 5-325 Mg) 1 tab Q4H PRN PO 09/09/17 13:00 (Morphine Inj) 2 mg Q2H PRN IV PUSH 09/09/17 14:00 (Pepcid) 20 mg Q12HR PO 09/09/17 21:00 09/09/17 20:33 (Zofran Inj) 4 mg Q6H PRN IV PUSH 09/09/17 14:00 (Duoneb Neb) 1 ampule Q6HR NEB INH 09/09/17 16:00 09/09/17 19:48 (Albuterol Neb) 2.5 mg Q2HR NEB PRN INH 09/09/17 13:00 Miscellaneous Information 1 Q361D XX 09/09/17 12:30 (Chlorhexidine 2% Cloth) 3 pack Taper DAILY@04 TOP 09/10/17 04:00 09/06/18 03:59 09/10/17 04:00 (Chlorhexidine 2% Cloth) 3 pack UNSCH PRN TOP 09/09/17 12:30 (Kiya-Colace) 1 tab BID PO 09/09/17 21:00 09/09/17 20:33 (Milk Of Magnesia Liq) 30 ml Q12H PRN PO 09/09/17 14:00 (Senokot) 17.2 mg Q12H PRN PO 09/09/17 12:30 (Dulcolax Supp) 10 mg DAILY PRN RECTAL 09/09/17 14:00 (Lactulose Liq) 30 ml DAILY PRN PO 09/09/17 14:00 (Lopressor Inj) 2.5 mg Q6H IV PUSH 09/09/17 14:00 (D50w (Vial) Inj) 50 ml UNSCH PRN IV PUSH 09/09/17 12:45 (Glucagon Inj) 1 mg UNSCH PRN OTHER 09/09/17 12:45 (NovoLOG SUPPLEMENTAL SCALE) 1 ACHS SLIDING SCALE SQ 09/09/17 17:00 09/09/17 18:37 Potassium Chloride 100 ml @ 50 mls/hr Q2H PRN IV 09/09/17 14:00 Potassium Chloride 100 ml @ 50 mls/hr Q2H PRN IV 09/09/17 12:45 (K-Lyte Cl Eff) 50 meq UNSCH PRN PO 09/09/17 12:45 Potassium Chloride 100 ml @ 25 mls/hr UNSCH PRN IV 09/09/17 12:45 Potassium Chloride 100 ml @ 50 mls/hr Q2H PRN IV 09/09/17 12:45 Magnesium Sulfate 4 gm/Sodium Chloride 100 ml @ 50 mls/hr UNSCH PRN IV 09/09/17 12:45 (Mag-Ox) 800 mg UNSCH PRN PO 09/09/17 12:45 Magnesium Sulfate 2 gm/Sodium Chloride 100 ml @ 50 mls/hr UNSCH PRN IV 09/09/17 12:45 (K-Phos) 2,000 mg Q4H PRN PO 09/09/17 12:45 Sodium Phosphate 30 mmol/Sodium Chloride 250 ml @ 42 mls/hr UNSCH PRN IV 09/09/17 12:45 (K-Phos) 2,000 mg UNSCH PRN PO/TUBE 09/09/17 12:45 Potassium Phosphate 30 mmol/ Sodium Chloride 260 ml @ 42 mls/hr UNSCH PRN IV 09/09/17 12:45 (Lipitor) 40 mg HS PO 09/10/17 21:00 Dobutamine HCl/ Dextrose 250 ml @ 11.925 mls/ hr [id number] PRN IV 09/09/17 17:16 09/09/17 22:41 Norepinephrine Bitartrate 250 ml @ 7.5 mls/hr TITRATE PRN IV 09/10/17 00:00 09/10/17 07:36 (Brethine Inj) 1 mg UNSCH PRN SQ 09/10/17 00:00 Vital Signs / I&O Vital Signs Date Time Temp Pulse Resp B/P (MAP) Pulse Ox O2 Delivery O2 Flow Rate FiO2 09/10/17 07:36 109 101/68 09/10/17 06:00 101 89/62 (71) 09/10/17 06:00 101 09/10/17 04:00 103 09/10/17 04:00 97.9 103 20 72/51 (58) 95 09/10/17 03:02 89 74/50 09/10/17 02:45 88 73/50 09/10/17 02:30 92 70/50 09/10/17 02:00 89/55 (66) 09/10/17 02:00 97 09/10/17 01:45 94 83/51 09/10/17 01:15 100 88/50 09/10/17 01:00 100 91/59 09/10/17 00:30 96 82/56 09/10/17 00:06 97 76/52 09/10/17 00:00 88 09/10/17 00:00 98.4 88 32 48/32 (37) 95 09/09/17 22:41 94 76/56 09/09/17 22:00 89 09/09/17 20:00 98.6 91 20 107/62 (77) 92 09/09/17 20:00 91 09/09/17 19:50 93 Nasal Cannula 2.00 09/09/17 18:00 90 09/09/17 18:00 91 09/09/17 17:00 97.8 90 16 82/59 (67) 96 09/09/17 16:21 98 Nasal Cannula 4.00 09/09/17 15:59 09/09/17 15:31 98 15 92/68 (76) 100 BiPAP 100 09/09/17 15:21 98 40 09/09/17 13:37 101 31 104/68 (80) 100 BiPAP 100 09/09/17 12:35 100 50 09/09/17 11:18 107 36 105/75 (85) 100 BiPAP 100 09/09/17 11:00 104 32 101/86 (91) 100 BiPAP 100 09/09/17 10:47 105 34 96/70 (79) 100 BiPAP 100 09/09/17 10:41 105 30 93/70 (78) 100 BiPAP 09/09/17 10:36 108 41 88/67 (74) 100 BiPAP 09/09/17 10:28 100 BiPAP 09/09/17 10:25 95 100 09/09/17 10:25 Nasal Cannula 4.00 09/09/17 10:19 36 Nasal Cannula 4.00 09/09/17 10:19 136 37 83 Nasal Cannula 4.00 09/09/17 10:16 98.6 140 36 146/77 (100) 97 I/O 09/09/17 09/09/17 09/09/17 09/10/17 09/10/17 09/10/17 07:00 15:00 23:00 07:00 15:00 23:00 Intake Total 200 ml Output Total 850 ml 1350 ml Balance 200 ml -850 ml -1350 ml Intake IV Total 200 ml Output Urine Total 850 ml 1350 ml # Voids 0 # Bowel Movements 0 Physical Exam EYES: No scleral icterus. No injection or drainage. NECK: Supple, trachea midline. No JVD or lymphadenopathy. CARDIOVASCULAR: Regular rate and rhythm without murmurs, gallops, or rubs. RESPIRATORY: Breath sounds equal bilaterally. GASTROINTESTINAL: Abdomen soft, non-tender, nondistended. MUSCULOSKELETAL: No cyanosis, or edema. BACK: Nontender without obvious deformity. No CVA tenderness. Laboratory Laboratory Tests Test 09/09/17 10:25 09/09/17 10:55 09/09/17 15:40 09/09/17 16:40 White Blood Count 14.1 TH/MM3 Red Blood Count 4.55 MIL/MM3 Hemoglobin 16.1 GM/DL Bedside Hemoglobin 16.0 G/DL Hematocrit 46.0 % Bedside Hematocrit 47.0 % Mean Corpuscular Volume 101.0 FL Mean Corpuscular Hemoglobin 35.3 PG Mean Corpuscular Hemoglobin Concent 34.9 % Red Cell Distribution Width 13.5 % Platelet Count 236 TH/MM3 Mean Platelet Volume 9.1 FL Neutrophils (%) (Auto) 71.3 % Lymphocytes (%) (Auto) 17.5 % Monocytes (%) (Auto) 9.9 % Eosinophils (%) (Auto) 0.4 % Basophils (%) (Auto) 0.9 % Neutrophils # (Auto) 10.1 TH/MM3 Lymphocytes # (Auto) 2.5 TH/MM3 Monocytes # (Auto) 1.4 TH/MM3 Eosinophils # (Auto) 0.1 TH/MM3 Basophils # (Auto) 0.1 TH/MM3 CBC Comment DIFF FINAL Differential Comment Prothrombin Time 10.1 SEC Prothromb Time International Ratio 1.0 RATIO Activated Partial Thromboplast Time 27.5 SEC Bedside Sodium 132 MMOL/L Bedside Potassium 4.6 MMOL/L Bedside Chloride 100 MMOL/L Bedside Blood Urea Nitrogen 8 MG/DL Bedside Creatinine 0.6 MG/DL Bedside Glucose 180 MG/DL Calcium Level 10.2 MG/DL Magnesium Level 1.6 MG/DL Total Creatine Kinase 534 U/L Creatine Kinase MB 57.4 NG/ML Creatine Kinase MB % 10.7 % Troponin I 6.78 NG/ML 19.30 NG/ML B-Type Natriuretic Peptide 1540 PG/ML Blood Gas Puncture Site LT RADIAL Blood Gas Patient Temperature 98.6 Blood Gas HCO3 20 mmol/L Blood Gas Base Excess -5.1 mmol/L Blood Gas Oxygen Saturation 93 % Arterial Blood pH 7.31 Arterial Blood Partial Pressure CO2 41 mmHg Arterial Blood Partial Pressure O2 87 mmHG Arterial Blood Oxygen Content 20.7 Vol % Arterial Blood Carboxyhemoglobin 1.6 % Arterial Blood Methemoglobin 0.8 % Blood Gas Hemoglobin 15.8 G/DL Oxygen Delivery Device BiPAP Blood Gas Ventilator Setting [id number] Blood Gas Inspired Oxygen 100 % Nasal Screen MRSA (PCR) MRSA NOT DETECTED Test 09/09/17 21:03 09/10/17 00:26 09/10/17 00:32 09/10/17 01:30 Activated Partial Thromboplast Time 35.2 SEC Troponin I GREATER THAN 40.00 NG/ML Triglycerides Level 227 MG/DL Cholesterol Level 261 MG/DL LDL Cholesterol 167 MG/DL HDL Cholesterol 49.1 MG/DL Cholesterol/HDL Ratio 5.31 RATIO Thyroid Stimulating Hormone 3rd Gen 0.994 uIU/ML Hemoglobin 14.9 GM/DL Hematocrit 43.3 % Lactic Acid Level 0.9 mmol/L Blood Gas Puncture Site CENTRAL LINE Blood Gas Patient Temperature 98.6 Venous Blood pH 7.40 Venous Blood Partial Pressure CO2 43 mmHg Venous Blood Partial Pressure O2 34 mmHg Venous Blood HCO3 27 mmol/L Venous Blood Oxygen Saturation 60 % Venous Blood Oxygen Content 11.9 Vol % Venous Blood Base Excess 2.2 mmol/L Oxygen Delivery Device NASAL CANNULA Blood Gas Liter Flow 4 L/M Test 09/10/17 06:09 09/10/17 06:12 09/10/17 07:48 White Blood Count 9.6 TH/MM3 Red Blood Count 4.02 MIL/MM3 Hemoglobin 13.9 GM/DL Hematocrit 40.1 % Mean Corpuscular Volume 99.8 FL Mean Corpuscular Hemoglobin 34.6 PG Mean Corpuscular Hemoglobin Concent 34.6 % Red Cell Distribution Width 13.0 % Platelet Count 193 TH/MM3 Mean Platelet Volume 8.7 FL Neutrophils (%) (Auto) 70.1 % Lymphocytes (%) (Auto) 17.4 % Monocytes (%) (Auto) 11.5 % Eosinophils (%) (Auto) 0.4 % Basophils (%) (Auto) 0.6 % Neutrophils # (Auto) 6.7 TH/MM3 Lymphocytes # (Auto) 1.7 TH/MM3 Monocytes # (Auto) 1.1 TH/MM3 Eosinophils # (Auto) 0.0 TH/MM3 Basophils # (Auto) 0.1 TH/MM3 CBC Comment DIFF FINAL Differential Comment Prothrombin Time 10.3 SEC Prothromb Time International Ratio 1.0 RATIO Blood Urea Nitrogen 10 MG/DL Creatinine 0.77 MG/DL Random Glucose 177 MG/DL Total Protein 7.1 GM/DL Albumin 3.1 GM/DL Calcium Level 9.0 MG/DL Phosphorus Level 3.1 MG/DL Magnesium Level 1.6 MG/DL Alkaline Phosphatase 87 U/L Aspartate Amino Transf (AST/SGOT) 256 U/L Alanine Aminotransferase (ALT/SGPT) 60 U/L Total Bilirubin 0.7 MG/DL Sodium Level 136 MEQ/L Potassium Level 3.4 MEQ/L Chloride Level 99 MEQ/L Carbon Dioxide Level 26.7 MEQ/L Anion Gap 10 MEQ/L Estimat Glomerular Filtration Rate 75 ML/MIN Lactic Acid Level 1.4 mmol/L Imaging Last 24 hours Impressions Chest X-Ray 09/10/17 0000 Signed Impressions: Service Date/Time: Sunday, September 10, 2017 01:24 - CONCLUSION: Bibasilar air space disease. Adequate placement of right jugular central line. Ector Burns MD Chest X-Ray 09/09/17 1020 Signed Impressions: Service Date/Time: Saturday, September 09, 2017 10:26 - CONCLUSION: Mild cardiomegaly. Cephalization of pulmonary vasculature may be related to volume overload or congestive heart failure. Danni Rhodes MD Assessment and Plan Assessment and Plan cardiogenic shock ICM acute coronary syndrome/NSTEMI on two low dose pressors breathing much better. plan for [facility] to define coronary anatomy continue supportive medical therapy hold heparin gtt Manuel Boyce MD Sep 10, 2017 08:18
[2017-09-10] MEDS ORDERED: HEPARIN-NS/PF FLUSH BAG 2,000 ML IV FLUSH ONE (08:33)
[2017-09-10] MEDS ORDERED: HEPARIN SODIUM - IV 10,000 UNITS/10 ML VIAL ONE ×2 (08:43→09:06)
[2017-09-10] MEDS ORDERED: LIDOCAINE HCL 1% PF 30 ML VIAL ONE (08:43)
[2017-09-10] MEDS ORDERED: MIDAZOLAM HCL 2 MG/2 ML VIAL ONE (08:43)
[2017-09-10] MEDS: FUROSEMIDE 40 MG/4 ML VIAL IV PUSH SCH ×2 (09:00→18:00)
[2017-09-10] MEDS: DOCUSATE SODIUM 50 MG/SENNA 8.6 MG TAB PO SCH ×2 (09:00→21:00)
[2017-09-10] MEDS: SODIUM CHLORIDE 0.9% FLUSH 10 ML FLUSH IV FLUSH SCH ×3 (09:00→21:08)
[2017-09-10] MEDS: FAMOTIDINE 20 MG TAB PO SCH ×2 (09:00→21:07)
[2017-09-10] MEDS: ASPIRIN EC 81 MG TABEC PO SCH (09:00)
[2017-09-10] MEDS ORDERED: FUROSEMIDE 40 MG/4 ML VIAL ONE (09:21)
[2017-09-10] MEDS ORDERED: HEPARIN-D5W 25,000 U/250 ML 250 ML ONE (09:37)
[2017-09-10] MEDS ORDERED: CHLORHEXIDINE GLUCONATE 4% SOLN 120 ML BTL TOPICAL SCH (10:00)
[2017-09-10] MEDS ORDERED: SODIUM CHLORIDE 0.9% FLUSH 10 ML FLUSH IV FLUSH PRN (10:00)
[2017-09-10] MEDS ORDERED: ceFAZolin 2 GM PREMIX 50 ML IV SCH (10:00)
[2017-09-10] MEDS ORDERED: CEFAZOLIN INJ 500 MG in SODIUM CHLORIDE 0.9% IRR BTL 500 ML IRRIGATION SCH (10:00)
[2017-09-10] MEDS ORDERED: METOPROLOL TARTRATE 25 MG TAB PO SCH (10:00)
[2017-09-10] MEDS ORDERED: PAPAVERINE INJ 60 MG, NITROGLYCERIN INJ 100 MCG, DILTIAZEM INJ 100 MG in SODIUM CHLORID... IRRIGATION SCH (10:00)
[2017-09-10] MEDS ORDERED: DEXTROSE 50% IN WATER 50 ML VIAL(D50) IV PUSH PRN (10:00)
[2017-09-10] MEDS ORDERED: INSULIN REGULAR (IV INFUSION) 100 UNITS in SODIUM CHLORIDE 0.9% INJ 99 ML IV PRN (10:00)
--- NOTE | 2017-09-10 10:01 | CATHPROC ---
[place] HIS Report Study Information Study Number Admission Scheduled Start Study Start [id number] Sep 09 2017 10:12AM 09/09/2017 Sep 10 2017 7:57AM [place] Service Cardiac Catheterization Admit Source Facility Department Emergency department [facility] - Microphone Operator Physician and Clinical Staff Initial Manuel Strong Curb Setter Alfred Navarro,RN Curb Setter Alfred Haywood,RN Recorder Melina Boudreaux ,RT(R) Scrub Saleem Streeter RCIS(BS) Procedures Performed Procedure Location (Site) Vessel Name Angiogram LV AO Arch (A1) Aorta Angiogram LV LV Ventricle Coronary Angiograms LCA Left Coronary Coronary Angiograms RCA Right Coronary IABP Fem Art (right) Femoral Art Equipment Time Template Clerk Description Size Mfg Part Number Used/Scraped [id number] 09:23 MARKHAM PEREIRA SWAN MARRY CATHETER FR 7 Used *[id number] TRANSDUCER, TRUWAVE [id number] 08:39 MARKHAM PEREIRA * Used W/STOCKCOCK *[id number] *[id number] *[id number] BALLOON, FR7.5 40CC [id number] 09:28 MAQUET FR 7.5 40CC Used SENSATION PLUS 01U *[id number] 08:39 MEDLINE INDUSTRIES PACK, CCL CUSTOM * Used *[id number] 08:39 Pixc PACER PEN, SKIN DUAL W/ RULER * Used *[id number] 09:06 MEDTRONIC JR 4.0 DXTERITY CATHETER FR 5 Used *[id number] 08:39 DocOnYou MEDICAL WIRE, 3MMJ .035 180CM 180CM Used *[id number] 08:39 NAMIC MANIFOLD, 4 PORT * Used *[id number] 08:39 NYCOMED OMNIPAQUE, 350 MG, 150ML 150ML [id number] Used [id number] 08:39 PANG MEDICAL BLANKET,WARM AIR CCL * Used *[id number] 08:39 TERUMO MEDICAL SHEATH, FR5 TERUMO (10CM) FR 5 Used *[id number] 09:11 TERUMO MEDICAL SHEATH, FR7 TERUMO (10CM) FR 7 Used *[id number] Equipment Model, Serial, Lot Number and Expiration Data Description Model Number Serial Number Lot Number Expiration Date JR 4.0 DXTERITY CATHETER [id number] 03-14-2020 History: Allergies Allergy Reaction No Known Allergies History: Risk Factors Family History of Hypertension Dyslipidemia Previous [place] Previous Heart Failure Premature CAD Yes No Yes No No Prior Valve Prior PCI Prior CABG Surgery No No No Cerebrovascular Peripheral Artery Chronic Lung On Dialysis Diabetes Disease Disease Disease No No No Yes No History: Stress Tests Stress or Imaging Studies Performed No History: Other Disease Selection Items HTN History: Other Method Packs a Day Years Used Pack Years Cigarettes 1 30 30 Labs Hgb (g/dl) Hct (%) WBC (l/cumm) Platelets (thousands) 11.60-17.00 35.00-51.00 4.00-11.00 150.00-450.00 13.9 40.1 9.6 139 Glucose (mg/dl) BUN (mg/dl) Creatinine (mg/dl) BUN:Creatinine (1:x) 74.00-106.00 7.00-18.00 0.50-1.30 10.00-20.00 180 8 0.6 13.3 Na (meq/l) K (meq/l) 136.00-145.00 3.50-5.10 132 4.6 INR (PTT:PT) 0.90-1.10 1 Troponin I (ng/ml) CPK (u/l) CPK-MB (ng/ML) 0.02-0.05 26.00-308.00 0.50-3.60 40 534 57.4 Medication Medication Total Dose (Bolus/Oral) Medication Total Dosage/Unit 1% XYLOCAINE 15 mL FENTANYL 75 mcg HEPARIN 5000 units LASIX 40 mg VERSED 1 mg Medications (Bolus/Oral) Medication Time Given Dosage/Unit Administered By Reason VERSED 09/10/2017 8:56:35 AM 0.5 mg Melanie, Alfred 0.5 mg VERSED given in lab by Alfred Navarro RN via Central IV. Ordered by Manuel Boyce. FENTANYL 09/10/2017 8:57:48 AM 25 mcg Melanie, Alfred 25 mcg FENTANYL given in lab by Alfred Navarro, RN via Central IV. Ordered by Manuel Boyce. 1% XYLOCAINE 09/10/2017 9:00:15 AM 15 mL Manuel Boyce 15 mL 1% XYLOCAINE given in lab by Manuel Boyce in Right Groin via Subcutaneous. Ordered by Manuel Boyce. VERSED 09/10/2017 9:20:11 AM 0.5 mg Melanie, Alfred 0.5 mg VERSED given in lab by Alfred Navarro RN via Central IV. Ordered by Manuel Boyce. FENTANYL 09/10/2017 9:21:37 AM 50 mcg Melanie, Alfred 50 mcg FENTANYL given in lab by Alfred Navarro RN via Central IV. Ordered by Manuel Boyce. LASIX 09/10/2017 9:25:38 AM 40 mg Melanie, Alfred 40 mg LASIX given in lab by Alfred Navarro RN via Central IV. Ordered by Manuel Boyce. HEPARIN 09/10/2017 9:28:41 AM 5000 units Melanie, Alfred 5000 units HEPARIN given in lab by Alfred Navarro RN via Central IV. Ordered by Manuel Boyce. Medication (Drip) Medication Time Given Dosage/Unit Concentration/Unit Diluent (ml) Solution DOBUTAMINE 09/10/2017 8:42:14 AM 2.5 mcg/kg/min 500 mg 250 D5W Patient arrived on 2.5 mcg/kg/min DOBUTAMINE via Central IV. Pump/Drip Flow = 5.96 ml/hr using D5W wi th a concentration of 500 mg in 250 ml. HEPARIN DRIP 09/10/2017 9:41:00 AM 1000 units/hr 55760 units 250 D5W 1000 units/hr HEPARIN DRIP given in lab by Alfred Haywood RN via Peripheral IV. Pump/Drip Flow = 10 m l/hr [place] D5[place] [address] units in 250 ml. Ordered by Manuel Boyce. IV Solutions 09/10/2017 8:33:24 AM 50 mL (IV) NaCl .9 Patient arrived on IV Solutions via Central IV. Pump/Drip Flow using NaCl .9. LEVOPHED 09/10/2017 8:41:30 AM 10 mcg/min 4 mg 250 D5W Patient arrived on 10 mcg/min LEVOPHED via Central IV. Pump/Drip Flow = 37.5 ml/hr using D5W with a c oncentration of 4 mg in 250 ml. Initial Case Assessment Cardiovascular HR NIBP Chest Pain 126 94/70 2 Edema Present Skin color Skin None Normal Warm Dry Circulatory - Right Pulses Posterior Tibial 1 Scale (0,1,2,3,4,d) Circulatory - Left Pulses Posterior Tibial Scale (0,1,2,3,4,d) Circulatory - Lower Extremities Color Lower Right Color Lower Left Normal Normal Neurological State Oriented to time-place- Alert Moves all extremities person Respiration - General Respiration Rate SpO2 (%) (B/min) 18 Final Case Assessment Cardiovascular HR NIBP Chest Pain 126 94/70 2 Edema Present Skin color Skin None Normal Warm Dry Circulatory - Right Pulses Posterior Tibial 1 Scale (0,1,2,3,4,d) Circulatory - Left Pulses Posterior Tibial Scale (0,1,2,3,4,d) Circulatory - Lower Extremities Color Lower Right Color Lower Left Normal Normal Neurological State Oriented to time-place- Alert Moves all extremities person Respiration - General Respiration Rate SpO2 (%) (B/min) 18 Chronological Log Time Study Chronological Log 8:28:10 Patient arrived via Bed. 8:28:11 Patient Name, D.O.B, / Armband Verified By R.N. 8:33:07 Consent signed by the physician and the patient and verified by the Microphone Operator staff. 8:33:09 Pre-op and post- op instructions given; patient acknowledges understanding of instructions. 8:33:10 Verbal Stimulation=2 Physical Stimulation=2 Airway=2 Respiration=2 TOTAL=8. (0=absent, 1=li mited, 2=present) 8:33:15 Patient has been NPO for More than 6Hrs. 8:33:16 Skin Breakdown- none per patient 8:33:17 Patient Warmer Placed on the Table. 8:33:21 Nela Prominences Protected 8:33:23 A # 20 IV was noted in the Antecubital (left). Grade = 0 8:33:23 A # 20 IV was noted in the Wrist (left). Grade = 0 8:33:24 Patient arrived on IV Solutions via Central IV. Pump/Drip Flow using NaCl .9. 8:33:24 History and physical on the chart or being dictated. Assessment: Initial Case, FA=395 BPM, NIBP=94/70 mmhg, Chest Pain=2, Edema=None, Color=Normal, S kin = Warm, Dry Right Pulses: Post Tib=1 Left Pulses: Ramiro Ped=1 8:33:25 Lower Right Extremities: Color=Normal Lower Left Extremities: Color=Normal Neurological: State=Alert, Ox3, JOHN Respiration: Resp=18 B/min, SpO2=93 % Vitals capture started with the following parameters, Patient=Adult, Interval=5 min, Initial Pre miaox=382 mmHg, 8:36:25 Deflation Rate=5 mmHg, Cuff placed on Left Arm Vitals capture started with the following parameters, Patient=Adult, Interval=5 min, Initial Pre hithl=040 mmHg, 8:37:25 Deflation Rate=5 mmHg, Cuff placed on Left Arm 8:37:59 XF=274 bpm, NIBP=94/70 mmhg, SpO2=93.0 %, Resp=29 B/min, Ivan=10, Mendoza=2 8:41:27 Bilateral groins prepped with 2% chlorhexidine, and draped after a 3 minute waiting time. Patient arrived on 10 mcg/min LEVOPHED via Central IV. Pump/Drip Flow = 37.5 ml/hr using D5W wit h a concentration 8:41:30 of 4 mg in 250 ml. Patient arrived on 2.5 mcg/kg/min DOBUTAMINE via Central IV. Pump/Drip Flow = 5.96 ml/hr using D 5W with a 8:42:14 concentration of 500 mg in 250 ml. 8:43:30 YU=503 bpm, NIBP=95/73 mmhg, SpO2=92.0 %, Resp=30 B/min, Pain=2, Ivan=10, Mendoza=2 8:46:16 Reference ECG taken 8:47:55 KW=968 bpm, NIBP=98/65 mmhg, SpO2=91.0 %, Resp=27 B/min, Ivan=10, Mendoza=2 8:49:31 paged 8:50:14 Pressure channel 1 zeroed. 8:50:45 MD responded 8:52:56 QU=102 bpm, NIBP=97/68 mmhg, SpO2=92.0 %, Resp=25 B/min, Ivan=10, Mendoza=2 8:56:22 MD arrived. 8:56:35 0.5 mg VERSED given in lab by Alfred Navarro, RN via Central IV. Ordered by Manuel Boyce. 8:57:48 25 mcg FENTANYL given in lab by Alfred Navarro RN via Central IV. Ordered by Manuel Boyce. 8:57:55 WV=472 bpm, NIBP=97/69 mmhg, SpO2=90.0 %, Resp=29 B/min, Ivan=10, Mendoza=2 Time Out. Correct patient, correct procedure, correct physician, power injector not loaded with contrast with surgical 8:59:38 team present. Time Out Concurred by MD and individual staff in procedure. 9:00:09 Case Start 9:00:15 15 mL 1% XYLOCAINE given in lab by Manuel Boyce in Right Groin via Subcutaneous. Ordered b y Manuel Boyce. 9:01:21 Access site was Right Femoral Artery. 9:01:33 A SHEATH, FR5 TERUMO (10CM) FR 5 was advanced into the Fem Art (right) using the Percutaneou s technique. 9:02:56 AP=650 bpm, NIBP=91/65 mmhg, SpO2=88.0 %, Resp=26 B/min, Ivan=10, Mendoza=2 A JL 4.0 INFINITI CATHETER FR 5 was advanced over a wire. OMNIPAQUE, 350 MG, 150ML 150ML was use d for 9:03:18 injections. 9:04:11 The LCA was injected and visualized at various angles. OMNIPAQUE, 350 MG, 150ML 150ML used. 9:06:03 Catheter was removed A JR 4.0 DXTERITY CATHETER FR 5 was advanced over a wire. OMNIPAQUE, 350 MG, 150ML 150ML was use d for 9:06:06 injections. Recorded Pressure: Ao, PO=740, Condition=Condition 1 9:07:05 (Aorta) Ao 139/72/100 9:07:48 The RCA was injected and visualized at various angles. OMNIPAQUE, 350 MG, 150ML 150ML used. 9:07:55 QC=623 bpm, NIBP=90/68 mmhg, SpO2=88.0 %, Resp=30 B/min, Ivan=10, Mendoza=2 9:08:07 Catheter was removed A PIGTAIL ANG. INFINITI CATHETER FR 5 was advanced over a wire. OMNIPAQUE, 350 MG, 150ML 150ML w as used 9:08:08 for injections. 9:10:11 Access site was Right Femoral Vein. 9:10:37 A SHEATH, FR7 TERUMO (10CM) FR 7 was advanced into the Fem Vein (right) using the Percutaneo us technique. Recorded Pressure: LV, YB=691, Condition=Condition 1 9:11:57 (Left Ventricle) LV 126/25/45 9:12:58 BQ=927 bpm, NIBP=81/55 mmhg, SpO2=88.0 %, Resp=30 B/min, Ivan=10, Mendoza=2 9:13:27 The LV was injected at 10 cc/sec for a total of 30. OMNIPAQUE, 350 MG, 150ML 150ML used. 9:14:30 The AO Arch (A1) was injected at 10 cc/sec for a total of 30. OMNIPAQUE, 350 MG, 150ML 150ML used. 9:16:00 Catheter was removed A JR 4.0 DXTERITY CATHETER FR 5 was advanced over a wire. OMNIPAQUE, 350 MG, 150ML 150ML was use d for 9:16:11 injections. 9:17:53 UY=115 bpm, NIBP=94/65 mmhg, SpO2=90.0 %, Resp=30 B/min, Ivan=10, Mendoza=2 Recorded Pressure: AoAbd, AN=028, Condition=Condition 1 9:18:52 (Descending Abdominal Aorta) AoAbd 139/77/104 9:20:11 0.5 mg VERSED given in lab by Alfred Navarro RN via Central IV. Ordered by Manuel Boyce. 9:20:45 A SWAN MARRY CATHETER FR 7 was inserted via Fem Vein (right) Recorded Pressure: RA, VP=598, Condition=Condition 1 9:21:16 (Right Atrium) RA /20 9:21:37 50 mcg FENTANYL given in lab by Alfred Navarro RN via Central IV. Ordered by Manuel Boyce. Recorded Pressure: RV, WS=947, Condition=Condition 1 9:21:45 (Right Ventricle) RV 77/18/22 Recorded Pressure: MPA, LX=021, Condition=Condition 1 9:22:30 (Main Pulmonary Artery) MPA 66/37/54 9:23:00 DZ=603 bpm, NIBP=94/52 mmhg, SpO2=93.0 %, Resp=23 B/min, Ivan=10, Mendoza=2 Recorded Pressure: PCW, LG=826, Condition=Condition 1 9:23:33 (Pulmonary Capillary Wedge) PCW 52/55/47 9:24:10 Saturation: Site=PA (Pulmonary Artery) , O2=64.3 %, Hgb=13.9 gm/dl, Condition=Condition 1. U sed in calculation. 9:24:25 Saturation: Site=Ao (Aorta) , O2=93.3 %, Hgb=13.9 gm/dl, Condition=Condition 1. Used in calc ulation. 9:25:38 40 mg LASIX given in lab by Alfred Navarro, RN via Central IV. Ordered by Manuel Boyce. 9:27:59 UO=793 bpm, NIBP=97/64 mmhg, SpO2=93.0 %, Resp=29 B/min, Ivan=10, Mendoza=2 9:28:21 Sheath exchanged for intra-aortic balloon insertion. An BALLOON, FR7.5 40CC SENSATION PLUS FR 7.5 40CC was advanced to the descending aorta. Proper p lacement 9:28:23 was confired under fluoroscopy and the balloon was sutured in place. Ratio = 1. Augmented BP ~SY S~/~JACKIE~ 9:28:41 5000 units HEPARIN given in lab by Alfred Navarro RN via Central IV. Ordered by Mehul Boyce 9:32:58 SH=256 bpm, LSFJ=483/67 mmhg, SpO2=95.0 %, Resp=25 B/min, Ivan=10, Mendoza=2 9:33:44 Catheter was removed 9:33:55 Case End Assessment: Final Case, VW=937 BPM, NIBP=94/70 mmhg, Chest Pain=2, Edema=None, Color=Normal, Ski n = Warm, Dry Right Pulses: Post Tib=1 Left Pulses: Ramiro Ped=1 9:34:09 Lower Right Extremities: Color=Normal Lower Left Extremities: Color=Normal Neurological: State=Alert, Ox3, JOHN Respiration: Resp=18 B/min, SpO2=93 % 9:34:19 Catheter(s) removed without difficulty 9:34:29 In the Fem Art (right) the SHEATH, FR7 TERUMO (10CM) FR [address] by Saleem Streeter RCIS(BS). 9:34:36 Sterile dressing applied to site 9:34:38 No case complications noted. 9:34:40 Cine recording checked. 9:34:41 Bedside Report will be given. 9:34:48 A Left and Right Heart Cath was performed. 9:38:01 ME=358 bpm, NIBP=98/68 mmhg, SpO2=94.0 %, Resp=29 B/min, Ivan=10, Mendoza=2 1000 units/hr HEPARIN DRIP given in lab by Alfred Haywood, RN via Peripheral IV. Pump/Drip Flow = 10 ml/hr using D5W 9:41:00 [place] [address] units in 250 ml. Ordered by Manuel Boyce. 9:43:02 DE=085 bpm, NIBP=93/67 mmhg, SpO2=95.0 %, Resp=27 B/min, Ivan=10, Mendoza=2 9:47:59 SSUD=346/71 mmhg, SpO2=96.0 %, Ivan=10, Mendoza=2 9:53:03 NIBP=98/64 mmhg, SpO2=96.0 %, Ivan=10, Mendoza=2 9:58:12 Vitals capture stopped. 9:58:47 Patient moved to [facility] End Study - Contrast Media Used In Study Contrast Total Opened (mL) Total Used (mL) Total Wasted (mL) Omnipaque 140 140 0 End Study - Maximum Contrast Load Max Contrast Load (mL) 662.5 End Study - Radiation Exposure Fluoro Time (minutes) 6.8 End Study - Patient Disposition Complications Transferred To Interventional Outcome No Critical Care Bed No attempt made
--- NOTE | 2017-09-10 10:22 | MA ---
cc: Manuel Boyce MD DATE: 09/10/2017 DATE OF PROCEDURE: 09/10/2017. PROCEDURE PERFORMED: 1. Fluoroscopy with interpretation. 2. Coronary angiography. 3. Left heart catheterization. 4. Right heart catheterization. 5. Intraaortic balloon pump. 6. Left upper extremity angiography. 7. Aortography. METHOD: The risks, benefits, and alternatives were discussed with the patient. The patient understood and consented to the procedure. The patient was brought into the cardiac catheterization lab, placed on the catheterization table. The right groin was prepped and draped in sterile fashion. The right groin was anesthetized with 2% lidocaine. The right common femoral artery was cannulated. A 5-Kazakh, 11-cm sheath was placed without difficulty. CORONARY ANGIOGRAPHY: 1. Left main has an ostial 80-90% stenosis in the mid to distal segment; it is heavily calcified at the bifurcation of the left anterior descending and left circumflex coronary arteries. 2. Left anterior descending coronary is subtotally occluded with 95% stenosis. 3. The circumflex has about a 50% eccentric stenosis. Left circumflex is a dominant vessel giving rise to posterior descending branch. 4. Right coronary artery is nondominant and has mild luminal irregularities. LEFT HEART CATHETERIZATION: Intraventricular hemodynamics: 128/25 mmHg with left ventricular end-diastolic pressure of 45 mmHg. LEFT VENTRICULOGRAPHY: Left ventriculography was performed in right anterior oblique view using a 5-Kazakh angled pigtail catheter with 30 mL contrast injection. Good opacification. Left ventricular ejection fraction 25-30% with global hypokinesis, most pronounced in the anterior, anterolateral, apical, inferoapical distribution. Well-preserved function is in the posterior base. There is no aortic stenosis by transaortic valvular pullback gradient. LEFT UPPER EXTREMITY ANGIOGRAPHY: There is heavy calcium in the aortic arch. The left subclavian has a 30% ostial stenosis, but no translesional gradient. Left internal mammary is widely patent. The left subclavian has a 30% stenosis just prior to the bifurcation of the vertebral artery. INTRAAORTIC BALLOON PUMP PLACEMENT: A 40 mL Datascope intraaortic balloon pump was advanced after exchanging the right common femoral artery catheter up to the level of the descending thoracic aorta just below the takeoff of the left subclavian. One-to-one inflations were performed with good systolic augmentation. AORTOGRAPHY: Aortography was performed with a 40 mL contrast injection in the ascending and arch aorta are not dilated. The descending aorta has some moderate calcium present. There is a small infrarenal aortic aneurysm and mild stenosis without significant translesional gradient. RIGHT HEART CATHETERIZATION: A 7-Kazakh [place]-Deanna volunteer catheter was advanced through the right femoral venous sheath to the level of the right atrium under fluoroscopic guidance. Hemodynamics were performed and all chambers well advanced into the pulmonary capillary wedge position. Hemodynamics are as follows: 1. Right atrial pressure measured 20 mmHg. 2. Right ventricular systolic pressure measured 77/18 mmHg. 3. Pulmonary arterial pressure measured at 66/37 mmHg. 4. Pulmonary capillary wedge pressure measured at 47 mmHg. 5. Cardiac output is 4.3 liters per minute. 6. Cardiac index 2.3 liters per minute per meter squared. CONCLUSIONS: 1. Cardiogenic shock with severely reduced left ventricular systolic function. 2. Significantly elevated left and right-sided filling pressures and mildly reduced cardiac output and index. 3. Severe pulmonary hypertension. 4. Severe left main and subtotally occluded ostial left anterior descending coronary stenosis. 5. Successful placement of intraaortic balloon pump. PLAN: The patient has critical disease, some mild intermittent symptoms now, definitely sustained infarct. Question is if it is a completed infarct pattern or is anterior descending territory salvageable. She is on low-dose pressor support. Anatomically, given the bifurcation of the distal left main, the left anterior descending and left circumflex stenosis should be difficult percutaneous revascularization. Her filling pressure is significantly elevated and her pulmonary hypertension is likely related to some elevated left-sided filling pressures given the increased transpulmonic gradient. At this point, we will aggressively diurese her, get a CT surgical consultation and determinate timing for potential revascularization. Also, may have a discussion about whether viability study would be indicated or move forward with the revascularization in the hopes that there is still a relatively good amount of myocardium salvageable in the anterior territory given her prolonged symptoms prior to presentation. MD ALEX Bui/SB , 09:51 AM , 10:22 AM
[2017-09-10] MEDS ORDERED: IOHEXOL 350 MG/ML 50 ML BTL (for Cath Lab) OTHER ONE (11:05)
[2017-09-10] MEDS ORDERED: IOHEXOL 350 MG/ML 100 ML BTL (for Cath Lab) OTHER ONE (11:05)
[2017-09-10] MEDS: MORPHINE SULFATE 4 MG/ML INJ IV PUSH PRN ×3 (11:16→21:23)
[2017-09-10 12:11] LABS: BILIRUBIN, URINE NEG (NEG); BLOOD, URINE TRACE (NEG); GLUCOSE,URINE NEG (NEG); KETONE, URINE NEG (NEG); MUCUS URINE FEW /lpf (OCC); NITRITE,URINE NEG (NEG); URINE LEUKOCYTE ESTERASE NEG (NEG)
[2017-09-10 12:13] LABS: URINE COLOR STRAW (YELLW/STRAW)
--- NOTE | 2017-09-10 12:26 | HHI.CCPN ---
Subjective Remarks/Hospital Course This is a 66-year-old female. Date of admission 09/09/2017.. Past medical history includes hypertension and ongoing tobaccoism. She presents today to the [facility] emergency room emergently for chest pain radiating down her left arm as a possible STEMI alert identified by the paramedics with their twelve-lead EKG. history of tobaccoism prior hypertension which she does not want take any medication. This chest pain with left-sided radiation has been ongoing for the past 48 hours/continuous running a 5 out of 10 on a scale of 1-10 obvious tachypnea upon presentation. Also tachycardic with heart rate in 140s. Initial blood pressure systolic was 90 patient had received 4 81 mg tablets aspirin and 1 0.4 mg sublingual nitro. It was hard to get any further history than this from the patient given her respiratory distress and anxiety. EKG revealed ST elevation in leads V1 and V2 with Q waves. STEMI alert was called. Patient worsening hypoxia and was started on BiPAP. Respiratory rate initially in the 40s currently about 25 and patient "feels better". Was evaluated by Dr. Boyce. Wishes perform heart catheterization 09/10 a.m. Started on aspirin 81 mg daily furosemide 40 mg IV twice daily. Patient's current heparin drip at thousand units an hour. Cannot give nitroglycerin drip due to hypotension. As tolerated metoprolol tartrate 2.5 mg IV every 6 hours Subjective 09/10: Central line placed overnight and started on norepinephrine drip at 10 mcg/ min and dobutamine drip at 2.5 mcg/kg/h. Echocardiogram revealed EF less than 20 %. Global LV dysfunction. LVH. Pulmonary arterial pressures 53 mmHg. Cardiac catheterization revealed severe stenosis left main. LAD 95% stenosis. Circumflex 50% stenosis. Pulmonary wedge pressure 47. Cardiac index 2.3 L/min/ m. Intra-aortic balloon pump placed. CT surgery consult. Currently resting in bed on nasal cannula in CVICU Objective Vital Signs Date Time Temp Pulse Resp B/P (MAP) Pulse Ox O2 Delivery O2 Flow Rate FiO2 09/10/17 11:43 16 09/10/17 11:00 94 Non-Rebreather 15.00 100 09/10/17 11:00 99.9 119 110/76 (87) 126/53 (77) Intake and Output 09/10/17 09/10/17 09/11/17 08:00 16:00 00:00 Output Total 1350 ml Balance -1350 ml Result Diagram: 09/10/17 0609 09/10/17 0609 Imaging Last Impressions Chest X-Ray 09/10/17 0000 Signed Impressions: Service Date/Time: Sunday, September 10, 2017 01:24 - CONCLUSION: Bibasilar air space disease. Adequate placement of right jugular central line. Ector Burns MD Objective Remarks GENERAL: 66-year-old female currently on BiPAP in moderate respiratory distress SKIN: Warm and dry. HEAD: Atraumatic. Normocephalic. EYES: Pupils equal and round about 3 mm bilaterally and react. No scleral icterus. No injection or drainage. ENT: No nasal bleeding or discharge. Mucous membranes pink and moist. NECK: Trachea midline. No JVD. CARDIOVASCULAR: Tachycardic, RR. S1, S2. No S4. Questionable S3. Without murmur RESPIRATORY: Coarse crackles appreciated bilateral lower lobes. No wheezing is appreciated GASTROINTESTINAL: Abdomen soft, non-tender, nondistended. Hypoactive bowel sounds appreciated MUSCULOSKELETAL: Extremities trace to 1+ bilateral lower extremity edema. No obvious deformities. NEUROLOGICAL: Awake and alert. No obvious cranial nerve deficits. Motor grossly within normal limits. Five out of 5 muscle strength in the arms and legs. Normal speech. Urinary Catheter: Yes Assessment to: Continue Phipps insert reason: Prolonged Immobilization Vascular Central Line Catheter: Yes Assessment to: Continue Date of Insertion: Sep 10, 2017 Line: Central Venous Catheter Side: Right Location: Internal, Jugular A/P Assessment and Plan Neuro/Psych: Acetaminophen 650 mg p.o. every 6 hours as needed fever Hydrocodone/acetaminophen 5/325 1 tablet every 4 hours as needed pain 1 through 5 Morphine sulfate 2 mg IV every 2 hours as needed pain 6 or 10 CV: Anterior STEMI Hypotension History of hypertension Elevated CPK/troponin of greater than 40 Triglyceridemia Hyperlipidemia Received 324 mg of aspirin, 0.4 mg nitroglycerin in ED. Scheduled for aspirin 81 mg p.o. daily Continue heparin drip at 1000 units an hour Echocardiogram revealed EF less than 20%. LV dysfunction. LV hypertrophy. PA P 53 mmHg Continue atorvastatin 40 mg by mouth at night Dr. Minor catheterization revealed RAD 20 mmHg. RVSP 77/18 mmHg. PAP 66/37 mmHg. Pulmonary capillary wedge pressure 47 mmHg. Cardiac output 4.3 L/min. Cardiac index 2.3 L/min/m. Left main 89% stenosis. LAD 95% stenosis. Left circumflex 50% stenosis. CT surgery consultation Intra-aortic balloon pump placed. Can not give JORGE inhibitor secondary to hypotension Continue furosemide 40 mg IV twice daily Resp: Acute hypoxic hypercapnic respiratory failure Ongoing tobaccoism Currently on nasal cannula to maintain saturations greater than equal to 92% Incentive spirometry while awake Albuterol/ipratropium aerosols every 6 hours with albuterol aerosols every 2 hours as needed for dyspnea Chest x-ray revealed adequate positioning of right IJ CVL Tobacco's educational self-education cessation booklet provided when clinically stable GI: Patient is currently n.p.o. except for medications Famotidine for GI prophylaxis Docusate sodium/senna 1 tablet twice daily for bowel regimen : Phipps catheter if indicated for accurate I's and O's in a critical patient receiving diuretics Endo: Mild stress hyperglycemia Sliding scale insulin with Accu-Cheks before meals/at bedtime to maintain euglycemia/low regimen of NovoLog Check hemoglobin A1c and TSH Renal: Creatinine currently within normal limits Monitor urine output while on diuretics Accurate I's and O's Heme: Leukocytosis Macrocytosis Monitor CBC daily. Follow trends Currently on heparin drip ID: Monitor for signs and symptoms of infection MSK: PT evaluate and treat FEN: Hypokalemia Hypophosphatemia Hypomagnesia Follow-up on BMP in a.m. especially since on furosemide Electrolyte ICU protocol initiated Access Right IJ CVL day #1 placed 09/10 Prophylaxis -GI -famotidine -DVT -SCD/heparin drip Critical Care: The total critical care time was 35 minutes. Time to perform other separately billable procedures was not included in the critical care time. Prasanth Nix MD Sep 10, 2017 12:26
--- NOTE | 2017-09-10 12:47 | RADRPT ---
EXAM DATE/TIME: 09/10/2017 11:48 [facility] COMPARISON: No previous studies available for comparison. INDICATIONS : Preop cardiac surgery. MEDICAL HISTORY : Hypercholesterolemia. SURGICAL HISTORY : Tubal ligation.Appendectomy. Right ovarian cyst. ENCOUNTER: Initial ACUITY: 1 day PAIN SCORE: 6/10 LOCATION: Bilateral leg. TECHNIQUE: Venous ultrasound of the left and right leg was performed from the inguinal ligament to the proximal calf. Real-time, color Doppler and spectral tracing, compression and augmentation techniques were us ed. FINDINGS: RIGHT LEG: There is normal compressibility of the deep venous system from the inguinal region to the proximal ca lf. No echogenic clot is seen in the lumen of the common femoral, femoral, popliteal, and posterior tibial veins. There is a normal response of the venous system to proximal and distal augmentation an d respiration. LEFT LEG: There is normal compressibility of the deep venous system from the inguinal region to the proximal ca lf. No echogenic clot is seen in the lumen of the common femoral, femoral, popliteal, and posterior tibial veins. There is a normal response of the venous system to proximal and distal augmentation an d respiration. CONCLUSION: No acute disease. Jeramy Branch MD on September 10, 2017 at 12:44 Board Certified Radiologist. This report was verified electronically.
--- NOTE | 2017-09-10 12:52 | RADRPT ---
EXAM DATE/TIME: 09/10/2017 11:58 [facility] COMPARISON: No previous studies available for comparison. INDICATIONS : Preop cardiac surgery. MEDICAL HISTORY : Hypercholesterolemia. SURGICAL HISTORY : Tubal ligation. Appendectomy. Right ovarian cyst. ENCOUNTER: Initial ACUITY: 1 day PAIN SCORE: 6/10 LOCATION: Bilateral leg. GREATER SAPHENOUS VEIN THIGH: PROXIMAL: Right 7 mm Left 8 mm MID: Right 4 mm Left 3 mm DISTAL: Right 3 mm Left 3 mm CALF: PROXIMAL: Right 3 mm Left 2 mm MID: Right 2 mm Left 1 mm DISTAL: Right 2 mm Left 1 mm FINDINGS: The venous system of the lower extremities are patent by color Doppler imaging. Measurements of the leg veins (in mm) are listed above. CONCLUSION: Venous mapping as delineated above. Matt Nugent MD on September 10, 2017 at 12:48 Board Certified Radiologist. This report was verified electronically.
--- NOTE | 2017-09-10 13:03 | RADRPT ---
EXAM DATE/TIME: 09/10/2017 11:02 [facility] COMPARISON: CHEST SINGLE AP, September 10, 2017, 1:24. INDICATIONS : Preop cardiac surgery. MEDICAL HISTORY : Hypercholesterol. SURGICAL HISTORY : Appendectomy. Right ovarian cyst removed. Tubal ligation. ENCOUNTER: Initial ACUITY: 1 day PAIN SCORE: 6/10 LOCATION: Bilateral neck PEAK SYSTOLIC VELOCITIES (cm/sec): ICA/CCA RATIO: Right: 0.78 Left: 1.58 ICA: Right: 90 Left: 133 CCA: Right: 118 Left: 84 ECA: Right: 132 Left: 97 VERTEBRAL: Right:<<NOT SEEN>Left:<<66>> antegrade Elevated flow velocities and ICA/CCA ratios have been found to correlate with increased degrees of vessel stenosis, calculated as percentage of diameter relative to a normal segment of distal ICA/CCA FINDINGS: RIGHT CAROTID: No significant stenosis is visualized. There is plaque seen at the common carotid artery and carotid bulb region. There is reversal of flow seen in diastole. The velocities are within normal limits. LEFT CAROTID: No significant stenosis is visualized. There is plaque seen at the common carotid artery and carotid bulb region. There is reversal of flow seen in diastole. There is mildly elevated peak systolic [place] in the left internal carotid artery. VERTEBRAL ARTERIES: No flow seen in the right vertebral artery. MISCELLANEOUS: None. CONCLUSION: 1. A significant stenosis is not seen although there is mildly elevated peak systolic velocity in the left internal carotid artery. 2. Flow is not seen in the right vertebral artery. 3. Reversal of flow in diastole seen throughout the exam. This can be seen with cardiac issues includ ing aortic insufficiency. 4. The absence of the right vertebral artery and the mildly elevated peak systolic velocity in the le ft internal iliac artery could be further evaluated with a CTA of the neck. Matt Nugent MD on September 10, 2017 at 12:54 Board Certified Radiologist. This report was verified electronically.
[2017-09-10 15:38] LABS: HEMOGLOBIN A1C 5.2 % (4.3-6.0)
--- NOTE | 2017-09-10 15:47 | PD.CAR.PN ---
CVT Progress Note Subjective/Hospital Course: pt seen and evaluated / full consult dictated sts data discussed with pt recommend CT chest possible viability test and repeat echo next 48hrs RISK SCORES About the STS Risk Calculator Procedure: CAB Only Risk of Mortality: 5.756% Morbidity or Mortality: 49.389% Long Length of Stay: 22.732% Short Length of Stay: 11.255% Permanent Stroke: 1.621% Prolonged Ventilation: 50.371% DSW Infection: 0.928% Renal Failure: 5.351% Reoperation: 10.366% Objective: Vital Signs Date Time Temp Pulse Resp B/P (MAP) Pulse Ox O2 Delivery O2 Flow Rate FiO2 09/10/17 15:27 93 Simple Mask 7.00 09/10/17 15:00 107 09/10/17 15:00 98.3 108 16 95/50 (65) 96 108/44 (65) 09/10/17 15:00 108/44 (108) 09/10/17 14:00 115/50 (104) 09/10/17 13:00 113/53 (104) 09/10/17 12:00 124/57 (113) Arterial Line 09/10/17 11:43 16 09/10/17 11:00 94 Non-Rebreather 15.00 100 09/10/17 11:00 99.9 119 16 110/76 (87) 94 126/53 (77) 09/10/17 11:00 117 09/10/17 11:00 126/53 (118) 09/10/17 10:00 130/59 (117) 09/10/17 08:00 98.1 101 22 78/41 (53) 95 09/10/17 08:00 101 09/10/17 07:36 109 101/68 09/10/17 06:00 101 89/62 (71) 09/10/17 06:00 101 09/10/17 04:00 103 09/10/17 04:00 97.9 103 20 72/51 (58) 95 09/10/17 03:02 89 74/50 09/10/17 02:45 88 73/50 09/10/17 02:30 92 70/50 09/10/17 02:00 89/55 (66) 09/10/17 02:00 97 09/10/17 01:45 94 83/51 09/10/17 01:15 100 88/50 09/10/17 01:00 100 91/59 09/10/17 00:30 96 82/56 09/10/17 00:06 97 76/52 09/10/17 00:00 88 09/10/17 00:00 98.4 88 32 48/32 (37) 95 09/09/17 22:41 94 76/56 09/09/17 22:00 89 09/09/17 20:00 98.6 91 20 107/62 (77) 92 09/09/17 20:00 91 09/09/17 19:50 93 Nasal Cannula 2.00 09/09/17 18:00 90 09/09/17 18:00 91 09/09/17 17:00 97.8 90 16 82/59 (67) 96 09/09/17 16:21 98 Nasal Cannula 4.00 09/09/17 15:59 Labs: Laboratory Tests Test 09/10/17 06:09 09/10/17 06:12 09/10/17 07:48 09/10/17 11:45 White Blood Count 9.6 TH/MM3 (4.0-11.0) Red Blood Count 4.02 MIL/MM3 (4.00-5.30) Hemoglobin 13.9 GM/DL (11.6-15.3) Hematocrit 40.1 % (35.0-46.0) Mean Corpuscular Volume 99.8 FL (80.0-100.0) Mean Corpuscular Hemoglobin 34.6 PG (27.0-34.0) Mean Corpuscular Hemoglobin Concent 34.6 % (32.0-36.0) Red Cell Distribution Width 13.0 % (11.6-17.2) Platelet Count 193 TH/MM3 (150-450) Mean Platelet Volume 8.7 FL (7.0-11.0) Neutrophils (%) (Auto) 70.1 % (16.0-70.0) Lymphocytes (%) (Auto) 17.4 % (9.0-44.0) Monocytes (%) (Auto) 11.5 % (0.0-8.0) Eosinophils (%) (Auto) 0.4 % (0.0-4.0) Basophils (%) (Auto) 0.6 % (0.0-2.0) Neutrophils # (Auto) 6.7 TH/MM3 (1.8-7.7) Lymphocytes # (Auto) 1.7 TH/MM3 (1.0-4.8) Monocytes # (Auto) 1.1 TH/MM3 (0-0.9) Eosinophils # (Auto) 0.0 TH/MM3 (0-0.4) Basophils # (Auto) 0.1 TH/MM3 (0-0.2) CBC Comment DIFF FINAL Differential Comment Prothrombin Time 10.3 SEC (9.8-11.6) Prothromb Time International Ratio 1.0 RATIO Blood Urea Nitrogen 10 MG/DL (7-18) Creatinine 0.77 MG/DL (0.50-1.00) Random Glucose 177 MG/DL (74-106) Total Protein 7.1 GM/DL (6.4-8.2) Albumin 3.1 GM/DL (3.4-5.0) Calcium Level 9.0 MG/DL (8.5-10.1) Phosphorus Level 3.1 MG/DL (2.5-4.9) Magnesium Level 1.6 MG/DL (1.5-2.5) Alkaline Phosphatase 87 U/L (45-117) Aspartate Amino Transf (AST/SGOT) 256 U/L (15-37) Alanine Aminotransferase (ALT/SGPT) 60 U/L (10-53) Total Bilirubin 0.7 MG/DL (0.2-1.0) Sodium Level 136 MEQ/L (136-145) Potassium Level 3.4 MEQ/L (3.5-5.1) Chloride Level 99 MEQ/L (98-107) Carbon Dioxide Level 26.7 MEQ/L (21.0-32.0) Anion Gap 10 MEQ/L (5-15) Estimat Glomerular Filtration Rate 75 ML/MIN (>89) Lactic Acid Level 1.4 mmol/L (0.4-2.0) Activated Partial Thromboplast Time 38.8 SEC (24.3-30.1) Urine Color STRAW (YELLW/STRAW) Urine Turbidity CLEAR (CLEAR) Urine pH 5.0 (5.0-8.5) Urine Specific [place] 1.025 (1.002-1.035) Urine Protein NEG mg/dL (NEG-TRACE) Urine Glucose (UA) NEG mg/dL (NEG) Urine Ketones NEG mg/dL (NEG) Urine Occult Blood TRACE (NEG) Urine Nitrite NEG (NEG) Urine Bilirubin NEG (NEG) Urine Urobilinogen LESS THAN 2.0 MG/DL (LESS Urine Leukocyte Esterase NEG (NEG) Urine RBC 5 /hpf (0-3) Urine WBC 1 /hpf (0-5) Urine Mucus FEW /lpf (OCC) Microscopic Urinalysis Comment CULT NOT INDICATED Result Diagram: 09/10/17 0609 09/10/17 0609 Danni Bales Sep 10, 2017 15:47
[2017-09-10 15:59] LABS: HEMOGLOBIN A1C 5.1 % (4.3-6.0)
--- NOTE | 2017-09-10 16:14 | MB ---
cc: Danni Bales Sohit MD DATE: 09/10/2017 DATE OF : 1950 HISTORY OF PRESENT ILLNESS: A 66-year-old female who presented to the emergency room on 09/09/2017, brought in emergently with chest pain also radiating down her left arm, possible STEMI Alert with a 12-lead EKG changes, has not had any primary care followup in many years. Pain had been going on for 2 days prior to ER admission, was complaining of shortness of breath, was found to be somewhat tachycardic, tachypneic, hypotensive. She thought initially that it was heartburn-type symptoms. Initial EKG showed ST elevation in V1, V2; however, there were some Q-waves in the precordial leads, with poor R-wave progression. The patient was admitted to the intensive care unit, was started on a heparin drip, nitro drip. She was found to be hypoxic, hypercapnic respiratory failure, history of tobacco abuse. She underwent cardiac catheterization today by Dr. Boyce which showed left main had an ostial 80-90% stenosis, was heavily calcified at the bifurcation of the left anterior descending and left circumflex artery. The LAD was subtotally occluded with a 95% stenosis. The circ had a 50% eccentric stenosis. The right coronary artery was nondominant. EF was approximately 25-30%, global hypokinesis, mostly pronounced in the anterolateral apical and inferior lateral apical distribution. She also had some stenosis in the left subclavian artery 30%. Due to the high grade left main disease and LAD, she had an intraaortic balloon pump placed. She also underwent right-sided heart catheterization, which showed right atrial pressures of 20, RV pressure is 77/18, pulmonary capillary wedge pressure measured at 47. Cardiac output of 4.3 with an index of 2.3. During the course of the cardiac catheterization, she was also placed on a Levophed drip and a dobutamine drip in addition to the intraaortic balloon pump in the right groin at a 1:1 augmentation. We were consulted to evaluate for coronary artery bypass grafting. The patient also had a 2D echocardiogram, which showed EF of less than 20%, mild mitral regurgitation, trace tricuspid regurgitation. PAST MEDICAL HISTORY: The patient states she has no significant past medical history that she is aware of other than tobacco abuse. She has also some noted hypertension. PAST SURGICAL HISTORY: Include a tubal ligation. ALLERGIES: SHE HAS NO KNOWN ALLERGIES. MEDICATIONS: Takes no medication. SOCIAL HISTORY: She has a daughter who lives close by. REVIEW OF SYSTEMS: As above in the HPI. The other 12 systems unremarkable. PHYSICAL EXAMINATION: VITAL SIGNS: Blood pressure 108/44. She is augmenting well. Heart rate 108, temperature-max 99.8. She is on a nonrebreather. Her sats are running 100%. GENERAL: She is sleepy; however, she is alert and oriented, mild distress. HEENT: Normocephalic, atraumatic. Pupils equal and reactive. Oral mucosa pink, moist. NECK: Supple. Mild JVD. HEART: Sounds S1, S2 diminished. Regular rate and rhythm. No audible rubs or gallops. She has an intraaortic balloon pump in the right groin with a 1:1 augmentation. LUNGS: She has got some basilar crackles, diminished throughout. ABDOMEN: Obese, soft, nontender, no masses or organomegaly. EXTREMITIES: Reveal no cyanosis, clubbing, or edema with good distal pulses. LABORATORY DATA: Shows hemoglobin of 13, hematocrit of 40, white cell count of 9.6, platelet count of 193. Sodium 136, potassium 3.4, BUN of 10 with a creatinine of 0.77, AST of 256, ALT of 60. Troponin greater than 40. Triglycerides 227, cholesterol 261, LDL 161. Lactic acid 1.4. INR 1.0. Urinalysis unremarkable. MRSA not detected. Blood gas on admission showed a pH of 7.31, CO2 of 41, pO2 of 87. Venous blood gas showed a CO2 of 34. Carotid Ultrasound: The internal carotid on the right was 90, the left was 133. There was no flow seen in the right vertebral artery and a mild elevated peak systolic velocity in the left internal. Some mild elevated systolic velocity. CTA was recommended of the neck. Ultrasound of the lower extremity showed no DVT, adequate blood flow in the lower veins. Chest X-ray: Bibasilar airspace disease. ASSESSMENT: 1. This is a 66-year-old female with no recent past primary care or medical care who presented with acute coronary syndrome with an acute IN, underwent heart catheterization with left main disease, placement of an intraaortic balloon pump, ejection fraction of approximately 20%, also left anterior descending involvement with to 90% stenosis. 2. History of hypertension, uncontrolled and no medical followup. 3. Acute congestive heart failure secondary to acute myocardial infarction. 4. Hypercapnic respiratory failure, remains on high flow O2 at this time. The patient currently remains on dobutamine and Levophed for blood pressure and control. The patient is critically ill at this time. PLAN: Recommend that the patient be allowed to recover from her acute IN and her cardiogenic shock, be weaned as tolerated, off her vasopressors and weaned slowly off the oxygen. She is currently also on Lasix, statin and aspirin. Recommend CT chest. Since there was significant calcification noted with the catheterization and possible viability test. Further planning per Dr. Byrd. MARLENE ParisP MD RIANNA Farrar/RUPA , 03:41 PM , 04:12 PM TAVIA
[2017-09-10] MEDS: DOBUTamine PREMIX DRIP 250 ML IV PRN (18:19)
[2017-09-10 18:22] LABS: MAGNESIUM 1.5 MG/DL (1.5-2.5)
[2017-09-10] MEDS: DOBUTamine INJ 250 MG in DEXTROSE 5% IN WATER INJ 230 ML IV PRN ×2 (19:02)
[2017-09-10] MEDS: ATORVASTATIN 40 MG TAB PO SCH (21:07)
[2017-09-10] MEDS: POTASSIUM CHLOR 20 MEQ PREMIX 100 ML IV PRN ×2 (21:22→23:16)
[2017-09-10] MEDS: ACETAMINOPHEN/HYDROcodone 325 MG/5 MG TAB PO PRN (22:21)
[2017-09-11] VITALS (11 sets, daily range): BP systolic 87–131; BP diastolic 44–70; PULSE 93–105; RESP 15–20; TEMP 98.3–99.9; O2SAT 93–97
[2017-09-11] MEDS: RESP: ALBUTEROL 2.5 MG/IPRATROPIUM 0.5 MG NEB (SCH) INH ×4 (03:37→21:31)
[2017-09-11] MEDS: CHLORHEXIDINE GLUCONATE 2 % 1 PACK (2 CLOTHS) TOP SCH (04:00)
[2017-09-11] MEDS: HEPARIN-D5W 25,000 U/250 ML 250 ML IV PRN (04:51)
[2017-09-11 05:01] LABS: AUTOMATED NEUTROPHIL # 6.9 TH/MM3 (1.8-7.7); BASOPHIL % 0.4 % (0.0-2.0); EOSINOPHIL % 0.2 % (0.0-4.0); HEMATOCRIT 36.5 % (35.0-46.0); HEMOGLOBIN 12.7 GM/DL (11.6-15.3); LYMPH % 14.8 % (9.0-44.0); LYMPHOCYTE # 1.4 TH/MM3 (1.0-4.8); MEAN CELL VOLUME 100.1 FL (80.0-100.0); MEAN CORPUSCULAR HEMOGLOBIN 34.8 PG (27.0-34.0); MEAN CORPUSCULAR HGB CONC 34.8 % (32.0-36.0); MEAN PLATELET VOLUME 8.4 FL (7.0-11.0); MONO % 14.1 % (0.0-8.0); MONOCYTE # 1.4 TH/MM3 (0-0.9); NEUT % 70.5 % (16.0-70.0); PLATELET COUNT 144 TH/MM3 (150-450); RED BLOOD COUNT 3.65 MIL/MM3 (4.00-5.30); RED CELL DISTRIBUTION WIDTH 13.2 % (11.6-17.2); WHITE BLOOD COUNT 9.8 TH/MM3 (4.0-11.0)
[2017-09-11 05:34] LABS: ALBUMIN 2.6 GM/DL (3.4-5.0); ALKALINE PHOSPHATASE 77 U/L (45-117); ALT (GPT) 44 U/L (10-53); AST (GOT) 134 U/L (15-37); BLOOD UREA NITROGEN 9 MG/DL (7-18); CALCIUM 8.5 MG/DL (8.5-10.1); CHLORIDE 99 MEQ/L (98-107); CREATININE 0.83 MG/DL (0.50-1.00); GLOMERULAR FILTRATION RATE 69 ML/MIN (>89); GLUCOSE,RANDOM 154 MG/DL (74-106); MAGNESIUM 2.3 MG/DL (1.5-2.5); PHOSPHORUS 2.2 MG/DL (2.5-4.9); SODIUM (NA) 136 MEQ/L (136-145); TOTAL BILIRUBIN ADULT 0.9 MG/DL (0.2-1.0); TOTAL PROTEIN 6.7 GM/DL (6.4-8.2)
[2017-09-11] MEDS: SODIUM PHOSPHATE INJ 30 MMOL in SODIUM CHLOR 0.9% 250 ML INJ 240 ML IV PRN (06:10)
[2017-09-11] MEDS: MORPHINE SULFATE 4 MG/ML INJ IV PUSH PRN ×3 (06:17→22:45)
[2017-09-11] MEDS ORDERED: POTASSIUM PHOSPHATE INJ 30 MMOL in SODIUM CHLOR 0.9% 250 ML INJ 250 ML IV ONE (06:30)
[2017-09-11] MEDS: NOREPINEPHRINE-DEXTROSE DRIP 250 ML IV PRN ×4 (07:00→15:40)
--- NOTE | 2017-09-11 07:07 | HHI.CCPN ---
Subjective Remarks/Hospital Course This is a 66-year-old female. Date of admission 09/09/2017.. Past medical history includes hypertension and ongoing tobaccoism. She presents today to the [facility] [address] emergency room emergently for chest pain radiating down her left arm as a possible STEMI alert identified by the paramedics with their twelve-lead EKG. history of tobaccoism prior hypertension which she does not want take any medication. This chest pain with left-sided radiation has been ongoing for the past 48 hours/continuous running a 5 out of 10 on a scale of 1-10 obvious tachypnea upon presentation. Also tachycardic with heart rate in 140s. Initial blood pressure systolic was 90 patient had received 4 81 mg tablets aspirin and 1 0.4 mg sublingual nitro. It was hard to get any further history than this from the patient given her respiratory distress and anxiety. EKG revealed ST elevation in leads V1 and V2 with Q waves. STEMI alert was called. Patient worsening hypoxia and was started on BiPAP. Respiratory rate initially in the 40s currently about 25 and patient "feels better". Was evaluated by Dr. Boyce. Wishes perform heart catheterization 09/10 a.m. Started on aspirin 81 mg daily furosemide 40 mg IV twice daily. Patient's current heparin drip at thousand units an hour. Cannot give nitroglycerin drip due to hypotension. As tolerated metoprolol tartrate 2.5 mg IV every 6 hours 09/10: Central line placed overnight and started on norepinephrine drip at 10 mcg/ min and dobutamine drip at 2.5 mcg/kg/h. Echocardiogram revealed EF less than 20 %. Global LV dysfunction. LVH. Pulmonary arterial pressures 53 mmHg. Cardiac catheterization revealed severe stenosis left main. LAD 95% stenosis. Circumflex 50% stenosis. Pulmonary wedge pressure 47. Cardiac index 2.3 L/min/ m. Intra-aortic balloon pump placed. CT surgery consult. Currently resting in bed on nasal cannula in CVICU Subjective 09/11: Continues on norepinephrine drip at 9 mcg/min and dobutamine drip at 2.5 mcg/kg/h. Intra-aortic balloon pump augmenting well at 1-1. Currently on 8 L simple mask. Keeping right lower extremity straight for the balloon pump. Minimal chest pain this a.m. Currently undergoing evaluation for CABG per CT surgery. Objective Vital Signs Date Time Temp Pulse Resp B/P (MAP) Pulse Ox O2 Delivery O2 Flow Rate FiO2 09/11/17 06:22 114/159 (108) 09/11/17 04:11 93 Simple Mask 9.00 09/11/17 03:17 99.0 96 15 09/10/17 11:00 100 Intake and Output 09/11/17 09/11/17 09/12/17 08:00 16:00 00:00 Intake Total 1434 ml Output Total 1120 ml Balance 314 ml Result Diagram: 09/11/17 0434 09/11/17 0434 Imaging Last Impressions Lower Extremity Ultrasound 09/10/17 0000 Signed Impressions: Service Date/Time: Sunday, September 10, 2017 11:58 - CONCLUSION: Venous mapping as delineated above. Matt Nugent MD Chest X-Ray 09/10/17 0000 Signed Impressions: Service Date/Time: Sunday, September 10, 2017 01:24 - CONCLUSION: Bibasilar air space disease. Adequate placement of right jugular central line. Ector Burns MD Carotid Artery Ultrasound 09/10/17 0000 Signed Impressions: Service Date/Time: Sunday, September 10, 2017 11:02 - CONCLUSION: 1. A significant stenosis is not seen although there is mildly elevated peak systolic velocity in the left internal carotid artery. 2. Flow is not seen in the right vertebral artery. 3. Reversal of flow in diastole seen throughout the exam. This can be seen with cardiac issues including aortic insufficiency. 4. The absence of the right vertebral artery and the mildly elevated peak systolic velocity in the left internal iliac artery could be further evaluated with a CTA of the neck. Matt Nugent MD Objective Remarks GENERAL: 66-year-old female currently on 8 L simple mask in no acute distress SKIN: Warm and dry. HEAD: Atraumatic. Normocephalic. EYES: Pupils equal and round about 3 mm bilaterally and reactive. No scleral icterus. No injection or drainage. ENT: No nasal bleeding or discharge. Mucous membranes pink and moist. NECK: Trachea midline. No JVD. CARDIOVASCULAR: RRR. S1, S2. No S4. Augmentation intra-aortic balloon pump appreciated RESPIRATORY: Coarse crackles appreciated bilateral lower lobes. No wheezing is appreciated GASTROINTESTINAL: Abdomen soft, non-tender, nondistended. Hypoactive bowel sounds appreciated MUSCULOSKELETAL: Extremities trace to 1+ bilateral lower extremity edema. No obvious deformities. Intra-aortic balloon pump in right inguinal region clean dry and intact without hematoma. NEUROLOGICAL: Awake and alert. No obvious cranial nerve deficits. Motor grossly within normal limits. Five out of 5 muscle strength in the arms and legs. Normal speech. Urinary Catheter: Yes Assessment to: Continue Phipps insert reason: ICU Pt Getting Diuretics Vascular Central Line Catheter: Yes Assessment to: Continue Date of Insertion: Sep 10, 2017 Line: Central Venous Catheter Side: Right Location: Internal, Jugular A/P Assessment and Plan Neuro/Psych: Acetaminophen 650 mg p.o. every 6 hours as needed fever Hydrocodone/acetaminophen 5/325 1 tablet every 4 hours as needed pain 1 through 5 Morphine sulfate 2 mg IV every 4 hours as needed pain 6 or 10 CV: Anterior STEMI Hypotension History of hypertension Elevated CPK/troponin of greater than 40 Triglyceridemia Hyperlipidemia Received 324 mg of aspirin, 0.4 mg nitroglycerin in ED. Scheduled for aspirin 81 mg p.o. daily Continue heparin drip at 900 units an hour Echocardiogram revealed EF less than 20%. LV dysfunction. LV hypertrophy. PA P 53 mmHg. Repeat echocardiogram 09/[address] surgery recommendation Continue atorvastatin 40 mg by mouth at night for dyslipidemia Dr. Minor catheterization revealed RAD 20 mmHg. RVSP 77/18 mmHg. PAP 66/37 mmHg. Pulmonary capillary wedge pressure 47 mmHg. Cardiac output 4.3 L/min. Cardiac index 2.3 L/min/m. Left main 89% stenosis. LAD 95% stenosis. Left circumflex 50% stenosis. CT surgery consultation workup currently in process Intra-aortic balloon pump placed augmented at 1-1 Can not give JORGE inhibitor secondary to hypotension Continue furosemide but increase to 80 mg IV twice daily Carotid Dopplers lack of flow in the right vertebral. Recommended CTA if indicated. High velocities left internal carotid artery. Resp: Acute hypoxic hypercapnic respiratory failure Ongoing tobaccoism Currently on nasal cannula/simple mask to maintain saturations greater than equal to 92% Incentive spirometry while awake Albuterol/ipratropium aerosols every 6 hours with albuterol aerosols every 2 hours as needed for dyspnea Chest x-ray revealed adequate positioning of right IJ CVL. Repeat chest x-ray in a.m. 09/12 Tobacco's educational self-education cessation booklet provided when clinically stable GI: Elevated AST Hypoalbuminemia Heart healthy diet Famotidine for GI prophylaxis Docusate sodium/senna 1 tablet twice daily for bowel regimen : Phipps catheter if indicated for accurate I's and O's in a critical patient receiving diuretics Endo: Mild stress hyperglycemia Sliding scale insulin with Accu-Cheks before meals/at bedtime to maintain euglycemia/low regimen of NovoLog Check hemoglobin A1c and TSH Renal: Creatinine currently within normal limits Monitor urine output while on diuretics Accurate I's and O's Heme: Thrombocytopenia Macrocytosis Monitor CBC daily. Follow trends Currently on heparin drip ID: Monitor for signs and symptoms of infection MSK: PT evaluate and treat FEN: Hypophosphatemia Follow-up on BMP in a.m. especially since on furosemide Electrolyte ICU protocol initiated Receiving 30 mmol sodium phosphorus this a.m. Augmenting with 30 mEq potassium chloride p.o. 1. Scheduled 10 mEq potassium chloride p.o. twice daily while on furosemide Access Right IJ CVL day #2 placed 09/10 Prophylaxis -GI -famotidine -DVT -SCD/heparin drip Critical Care: The total critical care time was 35 minutes. Time to perform other separately billable procedures was not included in the critical care time. Prasanth Nix MD Sep 11, 2017 07:07
[2017-09-11] MEDS ORDERED: POTASSIUM CHLORIDE 10 MEQ CONTROLLED RELEASE TAB PO ONE (07:15)
--- NOTE | 2017-09-11 07:22 | PD.CARD.PN ---
Subjective Subjective Remarks shortness of breath much improved IABP low dose dobutamine and levophed Objective Medications Current Medications Medications (Trade) Dose Ordered Sig/Shraddha Route Start Time Stop Time Status Last Admin Nitroglycerin/ Dextrose 250 ml @ 3 mls/hr TITRATE PRN IV 09/09/17 10:30 Heparin Sodium/ Dextrose 250 ml @ 10 mls/hr TITRATE PRN IV 09/09/17 10:45 09/11/17 04:51 (Ecotrin Ec) 81 mg DAILY PO 09/10/17 09:00 (Tylenol) 650 mg Q6H PRN PO 09/09/17 13:00 09/09/17 18:16 (Ottosen 5-325 Mg) 1 tab Q4H PRN PO 09/09/17 13:00 09/10/17 22:21 (Morphine Inj) 2 mg Q2H PRN IV PUSH 09/09/17 14:00 09/11/17 06:17 (Pepcid) 20 mg Q12HR PO 09/09/17 21:00 09/10/17 21:07 (Zofran Inj) 4 mg Q6H PRN IV PUSH 09/09/17 14:00 (Duoneb Neb) 1 ampule Q6HR NEB INH 09/09/17 16:00 09/11/17 03:37 (Albuterol Neb) 2.5 mg Q2HR NEB PRN INH 09/09/17 13:00 Miscellaneous Information 1 Q361D XX 09/09/17 12:30 09/09/17 12:30 (Chlorhexidine 2% Cloth) 3 pack Taper DAILY@04 TOP 09/10/17 04:00 09/06/18 03:59 09/11/17 04:00 (Chlorhexidine 2% Cloth) 3 pack UNSCH PRN TOP 09/09/17 12:30 (Kiya-Colace) 1 tab BID PO 09/09/17 21:00 09/09/17 20:33 (Milk Of Magnesia Liq) 30 ml Q12H PRN PO 09/09/17 14:00 (Senokot) 17.2 mg Q12H PRN PO 09/09/17 12:30 (Dulcolax Supp) 10 mg DAILY PRN RECTAL 09/09/17 14:00 (Lactulose Liq) 30 ml DAILY PRN PO 09/09/17 14:00 (Glucagon Inj) 1 mg UNSCH PRN OTHER 09/09/17 12:45 (NovoLOG SUPPLEMENTAL SCALE) 1 ACHS SLIDING SCALE SQ 09/09/17 17:00 09/10/17 21:08 Potassium Chloride 100 ml @ 50 mls/hr Q2H PRN IV 09/09/17 14:00 Potassium Chloride 100 ml @ 50 mls/hr Q2H PRN IV 09/09/17 12:45 (K-Lyte Cl Eff) 50 meq UNSCH PRN PO 09/09/17 12:45 Potassium Chloride 100 ml @ 25 mls/hr UNSCH PRN IV 09/09/17 12:45 Potassium Chloride 100 ml @ 50 mls/hr Q2H PRN IV 09/09/17 12:45 09/10/17 23:16 Magnesium Sulfate 4 gm/Sodium Chloride 100 ml @ 50 mls/hr UNSCH PRN IV 09/09/17 12:45 (Mag-Ox) 800 mg UNSCH PRN PO 09/09/17 12:45 Magnesium Sulfate 2 gm/Sodium Chloride 100 ml @ 50 mls/hr UNSCH PRN IV 09/09/17 12:45 09/10/17 21:07 (K-Phos) 2,000 mg Q4H PRN PO 09/09/17 12:45 Sodium Phosphate 30 mmol/Sodium Chloride 250 ml @ 42 mls/hr UNSCH PRN IV 09/09/17 12:45 09/11/17 06:10 (K-Phos) 2,000 mg UNSCH PRN PO/TUBE 09/09/17 12:45 Potassium Phosphate 30 mmol/ Sodium Chloride 260 ml @ 42 mls/hr UNSCH PRN IV 09/09/17 12:45 (Lipitor) 40 mg HS PO 09/10/17 21:00 09/10/17 21:07 Norepinephrine Bitartrate 250 ml @ 7.5 mls/hr TITRATE PRN IV 09/10/17 00:00 09/11/17 00:00 (Brethine Inj) 1 mg UNSCH PRN SQ 09/10/17 00:00 (NS Flush) 2 ml BID IV FLUSH 09/10/17 21:00 (NS Flush) 2 ml UNSCH PRN IV FLUSH 09/10/17 10:00 Papaverine HCl 60 mg/Nitroglycerin 100 mcg/Diltiazem HCl 100 mg/Sodium Chloride 100 ml @ 0 mls/hr BUFF WHEEL FABRICATOR IRRIGATION 09/10/17 10:00 09/17/17 09:59 Cefazolin Sodium 500 mg/Sodium Chloride 505 ml @ 0 mls/hr BUFF WHEEL FABRICATOR IRRIGATION 09/10/17 10:00 09/17/17 09:59 Cefazolin Sodium/ Dextrose 50 ml @ 150 mls/hr BUFF WHEEL FABRICATOR IV 09/10/17 10:00 09/17/17 09:59 (Lopressor) 12.5 mg BUFF WHEEL FABRICATOR PO 09/10/17 10:00 09/17/17 09:59 (Hibiclens 4% Top Soln) 1 applic BUFF WHEEL FABRICATOR TOPICAL 09/10/17 10:00 09/17/17 09:59 Insulin Human Regular 100 units/ Sodium Chloride 100 ml @ 3 mls/hr TITRATE PRN IV 09/10/17 10:00 09/17/17 09:59 (D50w (Vial) Inj) 50 ml UNSCH PRN IV PUSH 09/10/17 10:00 Dobutamine HCl 250 mg/Dextrose 250 ml @ 11.92 mls/ hr [id number] PRN IV 09/10/17 18:45 09/10/17 19:02 Potassium Phosphate 30 mmol/ Sodium Chloride 260 ml @ 43.333 mls/ hr ONCE ONCE IV 09/11/17 06:30 09/11/17 12:29 (KCl) 10 meq BID PO 09/11/17 09:00 (Lasix Inj) 80 mg BID@,18 IV PUSH 09/11/17 09:00 Vital Signs / I&O Vital Signs Date Time Temp Pulse Resp B/P (MAP) Pulse Ox O2 Delivery O2 Flow Rate FiO2 09/11/17 06:22 114/159 (108) 09/11/17 06:22 99/59 (72) 114/47 (69) 09/11/17 05:00 113/153 (104) 09/11/17 04:11 93 Simple Mask 9.00 09/11/17 04:00 110/151 (100) 09/11/17 03:17 106/150 (99) 09/11/17 03:17 99.0 96 15 101/70 (80) 95 106/45 (65) 09/11/17 03:17 97 09/11/17 02:00 104/150 (96) 09/11/17 01:00 107/156 (104) 09/11/17 00:00 97 94/41 09/11/17 00:00 94/148 (90) 09/10/17 23:10 99.0 103 15 88/57 (67) 95 104/45 (64) 09/10/17 23:10 102 09/10/17 23:10 104/150 (97) 09/10/17 22:00 103/145 (98) 09/10/17 21:21 92 Nasal Cannula 6.00 09/10/17 21:00 107/141 (98) 09/10/17 20:00 114/159 (102) 09/10/17 19:20 99.9 111 16 90/60 (70) 93 116/47 (70) 09/10/17 19:20 93 Nasal Cannula 6.00 Humidified 09/10/17 19:20 116/169 (110) EKG 09/10/17 19:00 108 09/10/17 18:19 112 112/49 09/10/17 18:00 98/66 (77) 112/49 (70) 09/10/17 18:00 112/49 (104) 09/10/17 17:00 110/45 (101) 09/10/17 17:00 108 110/45 09/10/17 16:00 106/47 (99) 09/10/17 15:54 16 09/10/17 15:27 93 Simple Mask 7.00 09/10/17 15:00 107 09/10/17 15:00 98.3 108 16 95/50 (65) 96 108/44 (65) 09/10/17 15:00 108/44 (108) 09/10/17 14:00 115/50 (104) 09/10/17 13:00 113/53 (104) 09/10/17 12:00 124/57 (113) Arterial Line 09/10/17 11:00 94 Non-Rebreather 15.00 100 09/10/17 11:00 99.9 119 16 110/76 (87) 94 126/53 (77) 09/10/17 11:00 117 09/10/17 11:00 126/53 (118) 09/10/17 10:00 130/59 (117) 09/10/17 08:00 98.1 101 22 78/41 (53) 95 09/10/17 08:00 101 09/10/17 07:36 109 101/68 I/O 09/10/17 09/10/17 09/10/17 09/11/17 09/11/17 09/11/17 07:00 15:00 23:00 07:00 15:00 23:00 Intake Total 790 ml 1534 ml Output Total 1350 ml 1750 ml 1120 ml Balance -1350 ml -960 ml 414 ml Intake Oral 240 ml 480 ml IV Total 550 ml 1054 ml Output Urine Total 1350 ml 1750 ml 1120 ml # Bowel Movements 0 0 0 Physical Exam EYES: No scleral icterus. No injection or drainage. NECK: Supple, trachea midline. No JVD or lymphadenopathy. CARDIOVASCULAR: Regular rate and rhythm without murmurs, gallops, or rubs. RESPIRATORY: Breath sounds equal bilaterally. GASTROINTESTINAL: Abdomen soft, non-tender, nondistended. MUSCULOSKELETAL: No cyanosis, or edema. BACK: Nontender without obvious deformity. No CVA tenderness. Laboratory Laboratory Tests Test 09/10/17 07:48 09/10/17 11:45 09/10/17 17:22 09/11/17 00:23 Activated Partial Thromboplast Time 38.8 SEC 35.4 SEC 39.9 SEC Urine Color STRAW Urine Turbidity CLEAR Urine pH 5.0 Urine Specific Wilburn 1.025 Urine Protein NEG mg/dL Urine Glucose (UA) NEG mg/dL Urine Ketones NEG mg/dL Urine Occult Blood TRACE Urine Nitrite NEG Urine Bilirubin NEG Urine Urobilinogen LESS THAN 2.0 MG/DL Urine Leukocyte Esterase NEG Urine RBC 5 /hpf Urine WBC 1 /hpf Urine Mucus FEW /lpf Microscopic Urinalysis Comment CULT NOT INDICATED Potassium Level 3.5 MEQ/L Phosphorus Level 3.0 MG/DL Magnesium Level 1.5 MG/DL Test 09/11/17 04:34 09/11/17 05:53 White Blood Count 9.8 TH/MM3 Red Blood Count 3.65 MIL/MM3 Hemoglobin 12.7 GM/DL Hematocrit 36.5 % Mean Corpuscular Volume 100.1 FL Mean Corpuscular Hemoglobin 34.8 PG Mean Corpuscular Hemoglobin Concent 34.8 % Red Cell Distribution Width 13.2 % Platelet Count 144 TH/MM3 Mean Platelet Volume 8.4 FL Neutrophils (%) (Auto) 70.5 % Lymphocytes (%) (Auto) 14.8 % Monocytes (%) (Auto) 14.1 % Eosinophils (%) (Auto) 0.2 % Basophils (%) (Auto) 0.4 % Neutrophils # (Auto) 6.9 TH/MM3 Lymphocytes # (Auto) 1.4 TH/MM3 Monocytes # (Auto) 1.4 TH/MM3 Eosinophils # (Auto) 0.0 TH/MM3 Basophils # (Auto) 0.0 TH/MM3 CBC Comment DIFF FINAL Differential Comment Blood Urea Nitrogen 9 MG/DL Creatinine 0.83 MG/DL Random Glucose 154 MG/DL Total Protein 6.7 GM/DL Albumin 2.6 GM/DL Calcium Level 8.5 MG/DL Phosphorus Level 2.2 MG/DL Magnesium Level 2.3 MG/DL Alkaline Phosphatase 77 U/L Aspartate Amino Transf (AST/SGOT) 134 U/L Alanine Aminotransferase (ALT/SGPT) 44 U/L Total Bilirubin 0.9 MG/DL Sodium Level 136 MEQ/L Potassium Level 3.6 MEQ/L Chloride Level 99 MEQ/L Carbon Dioxide Level 28.0 MEQ/L Anion Gap 9 MEQ/L Estimat Glomerular Filtration Rate 69 ML/MIN Activated Partial Thromboplast Time 39.7 SEC Imaging Last Impressions Lower Extremity Ultrasound 09/10/17 0000 Signed Impressions: Service Date/Time: Sunday, September 10, 2017 11:58 - CONCLUSION: Venous mapping as delineated above. Matt Nugent MD Chest X-Ray 09/10/17 0000 Signed Impressions: Service Date/Time: Sunday, September 10, 2017 01:24 - CONCLUSION: Bibasilar air space disease. Adequate placement of right jugular central line. Ector Burns MD Carotid Artery Ultrasound 09/10/17 0000 Signed Impressions: Service Date/Time: Sunday, September 10, 2017 11:02 - CONCLUSION: 1. A significant stenosis is not seen although there is mildly elevated peak systolic velocity in the left internal carotid artery. 2. Flow is not seen in the right vertebral artery. 3. Reversal of flow in diastole seen throughout the exam. This can be seen with cardiac issues including aortic insufficiency. 4. The absence of the right vertebral artery and the mildly elevated peak systolic velocity in the left internal iliac artery could be further evaluated with a CTA of the neck. Matt Nugent MD Assessment and Plan Assessment and Plan cardiogenic shock ICM acute coronary syndrome/NSTEMI Severe CAD tenative plan is for CABG continue diuresis Manuel Boyce MD Sep 11, 2017 07:22
[2017-09-11] MEDS: DOBUTamine INJ 250 MG in DEXTROSE 5% IN WATER INJ 230 ML IV PRN ×2 (07:35)
[2017-09-11] MEDS: INSULIN ASPART SUPPLEMENTAL SCALE SQ SCH ×4 (08:04→21:00)
[2017-09-11] MEDS: FAMOTIDINE 20 MG TAB PO SCH ×2 (08:17→21:16)
[2017-09-11] MEDS: DOCUSATE SODIUM 50 MG/SENNA 8.6 MG TAB PO SCH ×2 (08:17→21:16)
[2017-09-11] MEDS: ASPIRIN EC 81 MG TABEC PO SCH (08:17)
[2017-09-11] MEDS: SODIUM CHLORIDE 0.9% FLUSH 10 ML FLUSH IV FLUSH SCH ×2 (08:18→21:16)
[2017-09-11] MEDS: FUROSEMIDE 40 MG/4 ML VIAL IV PUSH SCH ×2 (08:20→18:21)
[2017-09-11] MEDS ORDERED: POTASSIUM CHLORIDE 20 MEQ CONTROLLED RELEASE TAB PO ONE (08:30)
[2017-09-11] MEDS ORDERED: FUROSEMIDE 40 MG/4 ML VIAL IV PUSH SCH (09:00)
[2017-09-11] MEDS ORDERED: POTASSIUM CHLORIDE 10 MEQ CAP PO SCH (09:00)
[2017-09-11] MEDS: ACETAMINOPHEN/HYDROcodone 325 MG/5 MG TAB PO PRN ×2 (09:31→15:40)
--- NOTE | 2017-09-11 10:14 | PD.CAR.PN ---
CVT Progress Note Subjective/Hospital Course: 66-year-old female who presented to the emergency room on 09/09/2017, brought in emergently with chest pain also radiating down her left arm, possible STEMI Alert with a 12-lead EKG changes, has not had any primary care followup in many years. Pain had been going on for 2 days prior to ER admission, was complaining of shortness of breath, was found to be somewhat tachycardic, tachypneic, hypotensive. She thought initially that it was heartburn-type symptoms. Initial EKG showed ST elevation in V1, V2; however, there were some Q -waves in the precordial leads, with poor R-wave progression. The patient was admitted to the intensive care unit, was started on a heparin drip, nitro drip. She was found to be hypoxic, hypercapnic respiratory failure, history of tobacco abuse. She underwent cardiac catheterization today by Dr. Boyce which showed left main had an ostial 80-90% stenosis, was heavily calcified at the bifurcation of the left anterior descending and left circumflex artery. The LAD was subtotally occluded with a 95% stenosis. The circ had a 50% eccentric stenosis. The right coronary artery was nondominant. EF was approximately 25- 30%, global hypokinesis, mostly pronounced in the anterolateral apical and inferior lateral apical distribution. She also had some stenosis in the left subclavian artery 30%. Due to the high grade left main disease and LAD, she had an intraaortic balloon pump placed. She also underwent right-sided heart catheterization, which showed right atrial pressures of 20, RV pressure is 77/18, pulmonary capillary wedge pressure measured at 47. Cardiac output of 4.3 with an index of 2.3. During the course of the cardiac catheterization, she was also placed on a Levophed drip and a dobutamine drip in addition to the intraaortic balloon pump in the right groin at a 1:1 augmentation. We were consulted to evaluate for coronary artery bypass grafting. The patient also had a 2D echocardiogram, which showed EF of less than 20%, mild mitral regurgitation, trace tricuspid regurgitation. 4/10 breathing better per pt no chest pain, only some back discomfort, IABP right groin 1:1 augmentation remains on dobutamine at 2.5mcq, and levophed at 7 mcq lasix bid , for repeat ECHO in am remains on 8 liter simple mask timing for surgery per Dr Byrd Objective: GENERAL: A&O x 3 SKIN: Warm and dry. HEAD: Normocephalic. EYES: No scleral icterus. No injection or drainage. NECK: Supple, trachea midline. No JVD or lymphadenopathy. CARDIOVASCULAR: Regular rate and rhythm without murmurs, gallops, or rubs. right groin IABP 1:1 augmentation , + right foot doppler pulses RESPIRATORY: Breath sounds equal bilaterally. No accessory muscle use. few basilar crackles GASTROINTESTINAL: Abdomen soft, non-tender, nondistended. MUSCULOSKELETAL: No cyanosis, or edema. BACK: Nontender without obvious deformity. No CVA tenderness. Vital Signs Date Time Temp Pulse Resp B/P (MAP) Pulse Ox O2 Delivery O2 Flow Rate FiO2 09/11/17 09:13 96 Simple Mask 8.00 09/11/17 09:00 123/161 (112) 09/11/17 08:34 106 108/42 09/11/17 08:00 118/160 (107) 09/11/17 07:00 96 Simple Mask 6.00 09/11/17 07:00 100 09/11/17 07:00 120/158 (109) 09/11/17 07:00 92 110/45 09/11/17 07:00 98.3 100 16 95/64 (74) 96 120/50 (73) 09/11/17 06:22 114/159 (108) 09/11/17 06:22 99/59 (72) 114/47 (69) 09/11/17 05:00 113/153 (104) 09/11/17 04:11 93 Simple Mask 9.00 09/11/17 04:00 110/151 (100) 09/11/17 03:17 106/150 (99) 09/11/17 03:17 99.0 96 15 101/70 (80) 95 106/45 (65) 09/11/17 03:17 97 09/11/17 02:00 104/150 (96) 09/11/17 01:00 107/156 (104) 09/11/17 00:00 97 94/41 09/11/17 00:00 94/148 (90) 09/10/17 23:10 99.0 103 15 88/57 (67) 95 104/45 (64) 09/10/17 23:10 102 09/10/17 23:10 104/150 (97) 09/10/17 22:00 103/145 (98) 09/10/17 21:21 92 Nasal Cannula 6.00 09/10/17 21:00 107/141 (98) 09/10/17 20:00 114/159 (102) 09/10/17 19:20 99.9 111 16 90/60 (70) 93 116/47 (70) 09/10/17 19:20 93 Nasal Cannula 6.00 Humidified 09/10/17 19:20 116/169 (110) EKG 09/10/17 19:00 108 09/10/17 18:19 112 112/49 09/10/17 18:00 98/66 (77) 112/49 (70) 09/10/17 18:00 112/49 (104) 09/10/17 17:00 110/45 (101) 09/10/17 17:00 108 110/45 09/10/17 16:00 106/47 (99) 09/10/17 15:54 16 09/10/17 15:27 93 Simple Mask 7.00 09/10/17 15:00 107 09/10/17 15:00 98.3 108 16 95/50 (65) 96 108/44 (65) 09/10/17 15:00 108/44 (108) 09/10/17 14:00 115/50 (104) 09/10/17 13:00 113/53 (104) 09/10/17 12:00 124/57 (113) Arterial Line 09/10/17 11:00 94 Non-Rebreather 15.00 100 09/10/17 11:00 99.9 119 16 110/76 (87) 94 126/53 (77) 09/10/17 11:00 117 09/10/17 11:00 126/53 (118) Labs: Laboratory Tests Test 09/11/17 00:23 09/11/17 04:34 09/11/17 05:53 Activated Partial Thromboplast Time 39.9 SEC (24.3-30.1) 39.7 SEC (24.3-30.1) White Blood Count 9.8 TH/MM3 (4.0-11.0) Red Blood Count 3.65 MIL/MM3 (4.00-5.30) Hemoglobin 12.7 GM/DL (11.6-15.3) Hematocrit 36.5 % (35.0-46.0) Mean Corpuscular Volume 100.1 FL (80.0-100.0) Mean Corpuscular Hemoglobin 34.8 PG (27.0-34.0) Mean Corpuscular Hemoglobin Concent 34.8 % (32.0-36.0) Red Cell Distribution Width 13.2 % (11.6-17.2) Platelet Count 144 TH/MM3 (150-450) Mean Platelet Volume 8.4 FL (7.0-11.0) Neutrophils (%) (Auto) 70.5 % (16.0-70.0) Lymphocytes (%) (Auto) 14.8 % (9.0-44.0) Monocytes (%) (Auto) 14.1 % (0.0-8.0) Eosinophils (%) (Auto) 0.2 % (0.0-4.0) Basophils (%) (Auto) 0.4 % (0.0-2.0) Neutrophils # (Auto) 6.9 TH/MM3 (1.8-7.7) Lymphocytes # (Auto) 1.4 TH/MM3 (1.0-4.8) Monocytes # (Auto) 1.4 TH/MM3 (0-0.9) Eosinophils # (Auto) 0.0 TH/MM3 (0-0.4) Basophils # (Auto) 0.0 TH/MM3 (0-0.2) CBC Comment DIFF FINAL Differential Comment Blood Urea Nitrogen 9 MG/DL (7-18) Creatinine 0.83 MG/DL (0.50-1.00) Random Glucose 154 MG/DL (74-106) Total Protein 6.7 GM/DL (6.4-8.2) Albumin 2.6 GM/DL (3.4-5.0) Calcium Level 8.5 MG/DL (8.5-10.1) Phosphorus Level 2.2 MG/DL (2.5-4.9) Magnesium Level 2.3 MG/DL (1.5-2.5) Alkaline Phosphatase 77 U/L (45-117) Aspartate Amino Transf (AST/SGOT) 134 U/L (15-37) Alanine Aminotransferase (ALT/SGPT) 44 U/L (10-53) Total Bilirubin 0.9 MG/DL (0.2-1.0) Sodium Level 136 MEQ/L (136-145) Potassium Level 3.6 MEQ/L (3.5-5.1) Chloride Level 99 MEQ/L (98-107) Carbon Dioxide Level 28.0 MEQ/L (21.0-32.0) Anion Gap 9 MEQ/L (5-15) Estimat Glomerular Filtration Rate 69 ML/MIN (>89) Result Diagram: 09/11/17 0434 09/11/17 0434 Telemetry: NSR (1) ST elevation [place] (STEMI) Plan: on ASA no BB , on heparin pressors IABP (2) Acute respiratory failure with hypoxia and hypercapnia Plan: some improvement with diuresis (3) History of hypertension (4) Tobacco abuse Plan: smoking cessation (5) Congestive heart failure Problem Qualifiers (1) ST elevation HI (STEMI): Qualified Codes: I21.02 - ST elevation (STEMI) myocardial infarction involving left anterior descending coronary artery (2) Congestive heart failure: Qualified Codes: I50.9 - Heart failure, unspecified Danni Bales Sep 11, 2017 10:14
[2017-09-11] MEDS: POTASSIUM CHLOR 20 MEQ PREMIX 100 ML IV PRN ×2 (14:52→17:22)
[2017-09-11] MEDS: ATORVASTATIN 40 MG TAB PO SCH (21:16)
[2017-09-11] MEDS: POTASSIUM CHLORIDE 10 MEQ CAP PO SCH (21:16)
--- NOTE | 2017-09-11 22:56 | RADRPT ---
EXAM DATE/TIME: 09/11/2017 21:56 [facility] COMPARISON: CHEST SINGLE AP, September 10, 2017, 1:24. INDICATIONS : Pre-op CABG. abnormal chest x-ray with bibasilar airspace disease. RADIATION DOSE: 9.59 CTDIvol (mGy) MEDICAL HISTORY : None SURGICAL HISTORY : None. ENCOUNTER: Initial ACUITY: 1 day PAIN SCALE: 0/10 LOCATION: chest TECHNIQUE: Volumetric scanning of the chest was performed. Using automated exposure control and adjustment of t he mA and/or kV according to patient size, radiation dose was kept as low as reasonably achievable to obtain optimal diagnostic quality images. DICOM format image data is available electronically for r eview and comparison. Follow-up recommendations for detected pulmonary nodules are based at a minimum on nodule size and pa tient risk factors according to Fleischner Society Guidelines. FINDINGS: LUNGS: There is no pneumothorax. No concerning pulmonary nodule is visualized. Consolidation is noted in derik th posterior lower lobes with air bronchograms left greater than right. Patchy alveolar airspace dise ase is noted in both upper lobes, right middle lobe and lingula. PLEURAE: There is small but lateral pleural effusions. MEDIASTINUM: The heart and great vessels demonstrate no acute abnormality. There is no mediastinal or hilar lymph adenopathy. Coronary artery calcifications are present. AXILLAE: Within normal limits. No lymphadenopathy. MUSCULOSKELETAL: Within normal limits for patient age. MISCELLANEOUS: The visualized upper abdominal organs demonstrate no acute abnormality. CONCLUSION: 1. Consolidation in both lower lobes left greater than right with patchy airspace disease in the uppe r and middle lobes. 2. Small bilateral pleural effusions. Crow Johnson MD on September 11, 2017 at 22:52 Board Certified Radiologist. This report was verified electronically.
[2017-09-12] VITALS (10 sets, daily range): BP systolic 96–158; BP diastolic 39–81; PULSE 90–101; RESP 16–22; TEMP 98.6–100.4; O2SAT 94–97
[2017-09-12] MEDS: NOREPINEPHRINE-DEXTROSE DRIP 250 ML IV PRN ×2 (01:26→09:12)
[2017-09-12] MEDS: HEPARIN-D5W 25,000 U/250 ML 250 ML IV PRN ×2 (01:36→21:31)
[2017-09-12] MEDS: CHLORHEXIDINE GLUCONATE 2 % 1 PACK (2 CLOTHS) TOP SCH (04:00)
[2017-09-12] MEDS: RESP: ALBUTEROL 2.5 MG/IPRATROPIUM 0.5 MG NEB (SCH) INH ×4 (04:13→20:35)
[2017-09-12 05:08] LABS: HEMATOCRIT 37.3 % (35.0-46.0); HEMOGLOBIN 12.7 GM/DL (11.6-15.3); MEAN CELL VOLUME 101.5 FL (80.0-100.0); MEAN CORPUSCULAR HEMOGLOBIN 34.6 PG (27.0-34.0); MEAN CORPUSCULAR HGB CONC 34.1 % (32.0-36.0); MEAN PLATELET VOLUME 8.7 FL (7.0-11.0); PLATELET COUNT 121 TH/MM3 (150-450); RED BLOOD COUNT 3.68 MIL/MM3 (4.00-5.30); RED CELL DISTRIBUTION WIDTH 13.3 % (11.6-17.2); WHITE BLOOD COUNT 8.9 TH/MM3 (4.0-11.0)
--- NOTE | 2017-09-12 05:11 | RADRPT ---
EXAM DATE/TIME: 09/12/2017 03:56 [facility] COMPARISON: CHEST SINGLE AP, September 10, 2017, 1:24. INDICATIONS : Short of breath. MEDICAL HISTORY : None. SURGICAL HISTORY : None. ENCOUNTER: Subsequent ACUITY: 2 days PAIN SCORE: 0/10 LOCATION: Bilateral chest FINDINGS: A single view of the chest demonstrates cardiomegaly with interstitial edema. Right jugular central l ine stable. There has been improvement in bilateral airspace disease. Osseous structures are intact. CONCLUSION: Cardiomegaly with interstitial edema. Improving bilateral airspace disease. Ector Burns MD on September 12, 2017 at 5:08 Board Certified Radiologist. This report was verified electronically.
[2017-09-12 05:38] LABS: ALBUMIN 2.6 GM/DL (3.4-5.0); ALT (GPT) 31 U/L (10-53); AST (GOT) 72 U/L (15-37); BICARBONATE 27.8 MEQ/L (21.0-32.0); BLOOD UREA NITROGEN 7 MG/DL (7-18); CALCIUM 8.6 MG/DL (8.5-10.1); CHLORIDE 102 MEQ/L (98-107); CREATININE 0.76 MG/DL (0.50-1.00); GLOMERULAR FILTRATION RATE 76 ML/MIN (>89); GLUCOSE,RANDOM 138 MG/DL (74-106); MAGNESIUM 1.9 MG/DL (1.5-2.5); SODIUM (NA) 136 MEQ/L (136-145)
[2017-09-12 05:39] LABS: PHOSPHORUS 2.2 MG/DL (2.5-4.9)
[2017-09-12 05:41] LABS: ALKALINE PHOSPHATASE 81 U/L (45-117); TOTAL BILIRUBIN ADULT 0.7 MG/DL (0.2-1.0)
[2017-09-12] MEDS: INSULIN ASPART SUPPLEMENTAL SCALE SQ SCH ×4 (07:49→21:00)
[2017-09-12] MEDS: SODIUM PHOSPHATE INJ 30 MMOL in SODIUM CHLOR 0.9% 250 ML INJ 240 ML IV PRN (08:19)
--- NOTE | 2017-09-12 08:33 | PD.CARD.PN ---
Subjective Subjective Remarks Chest heaviness is still present but is improving. Has been diuresing well and breathing is improving, on nasal cannula. Denies any palpitations. Awaiting echocardiogram today for further preop eval. Objective Medications Current Medications Medications (Trade) Dose Ordered Sig/Shraddha Route Start Time Stop Time Status Last Admin Nitroglycerin/ Dextrose 250 ml @ 3 mls/hr TITRATE PRN IV 09/09/17 10:30 Heparin Sodium/ Dextrose 250 ml @ 10 mls/hr TITRATE PRN IV 09/09/17 10:45 09/12/17 01:36 (Ecotrin Ec) 81 mg DAILY PO 09/10/17 09:00 09/11/17 08:17 (Tylenol) 650 mg Q6H PRN PO 09/09/17 13:00 09/09/17 18:16 ([place] 5-325 Mg) 1 tab Q4H PRN PO 09/09/17 13:00 09/11/17 15:40 (Morphine Inj) 2 mg Q2H PRN IV PUSH 09/09/17 14:00 09/11/17 22:45 (Pepcid) 20 mg Q12HR PO 09/09/17 21:00 09/11/17 21:16 (Zofran Inj) 4 mg Q6H PRN IV PUSH 09/09/17 14:00 (Duoneb Neb) 1 ampule Q6HR NEB INH 09/09/17 16:00 09/12/17 04:13 (Albuterol Neb) 2.5 mg Q2HR NEB PRN INH 09/09/17 13:00 Miscellaneous Information 1 Q361D XX 09/09/17 12:30 09/09/17 12:30 (Chlorhexidine 2% Cloth) 3 pack Taper DAILY@04 TOP 09/10/17 04:00 09/06/18 03:59 09/12/17 04:00 (Chlorhexidine 2% Cloth) 3 pack UNSCH PRN TOP 09/09/17 12:30 (Kiya-Colace) 1 tab BID PO 09/09/17 21:00 09/11/17 21:16 (Milk Of Magnesia Liq) 30 ml Q12H PRN PO 09/09/17 14:00 (Senokot) 17.2 mg Q12H PRN PO 09/09/17 12:30 (Dulcolax Supp) 10 mg DAILY PRN RECTAL 09/09/17 14:00 (Lactulose Liq) 30 ml DAILY PRN PO 09/09/17 14:00 (Glucagon Inj) 1 mg UNSCH PRN OTHER 09/09/17 12:45 (NovoLOG SUPPLEMENTAL SCALE) 1 ACHS SLIDING SCALE SQ 09/09/17 17:00 09/11/17 21:00 Potassium Chloride 100 ml @ 50 mls/hr Q2H PRN IV 09/09/17 14:00 Potassium Chloride 100 ml @ 50 mls/hr Q2H PRN IV 09/09/17 12:45 (K-Lyte Cl Eff) 50 meq UNSCH PRN PO 09/09/17 12:45 Potassium Chloride 100 ml @ 25 mls/hr UNSCH PRN IV 09/09/17 12:45 Potassium Chloride 100 ml @ 50 mls/hr Q2H PRN IV 09/09/17 12:45 09/11/17 17:22 Magnesium Sulfate 4 gm/Sodium Chloride 100 ml @ 50 mls/hr UNSCH PRN IV 09/09/17 12:45 (Mag-Ox) 800 mg UNSCH PRN PO 09/09/17 12:45 Magnesium Sulfate 2 gm/Sodium Chloride 100 ml @ 50 mls/hr UNSCH PRN IV 09/09/17 12:45 09/10/17 21:07 (K-Phos) 2,000 mg Q4H PRN PO 09/09/17 12:45 Sodium Phosphate 30 mmol/Sodium Chloride 250 ml @ 42 mls/hr UNSCH PRN IV 09/09/17 12:45 09/12/17 08:19 (K-Phos) 2,000 mg UNSCH PRN PO/TUBE 09/09/17 12:45 Potassium Phosphate 30 mmol/ Sodium Chloride 260 ml @ 42 mls/hr UNSCH PRN IV 09/09/17 12:45 (Lipitor) 40 mg HS PO 09/10/17 21:00 09/11/17 21:16 Norepinephrine Bitartrate 250 ml @ 7.5 mls/hr TITRATE PRN IV 09/10/17 00:00 09/12/17 01:26 (Brethine Inj) 1 mg UNSCH PRN SQ 09/10/17 00:00 (NS Flush) 2 ml BID IV FLUSH 09/10/17 21:00 09/11/17 21:16 (NS Flush) 2 ml UNSCH PRN IV FLUSH 09/10/17 10:00 Papaverine HCl 60 mg/Nitroglycerin 100 mcg/Diltiazem HCl 100 mg/Sodium Chloride 100 ml @ 0 mls/hr CANOPY STRINGER IRRIGATION 09/10/17 10:00 09/17/17 09:59 Cefazolin Sodium 500 mg/Sodium Chloride 505 ml @ 0 mls/hr CANOPY STRINGER IRRIGATION 09/10/17 10:00 09/17/17 09:59 Cefazolin Sodium/ Dextrose 50 ml @ 150 mls/hr CANOPY STRINGER IV 09/10/17 10:00 09/17/17 09:59 (Lopressor) 12.5 mg CANOPY STRINGER PO 09/10/17 10:00 09/17/17 09:59 (Hibiclens 4% Top Soln) 1 applic CANOPY STRINGER TOPICAL 09/10/17 10:00 09/17/17 09:59 Insulin Human Regular 100 units/ Sodium Chloride 100 ml @ 3 mls/hr TITRATE PRN IV 09/10/17 10:00 09/17/17 09:59 (D50w (Vial) Inj) 50 ml UNSCH PRN IV PUSH 09/10/17 10:00 Dobutamine HCl 250 mg/Dextrose 250 ml @ 11.92 mls/ hr [id number] PRN IV 09/10/17 18:45 09/11/17 07:35 (Lasix Inj) 80 mg BID@,18 IV PUSH 09/11/17 09:00 09/11/17 18:21 (KCl) 30 meq BID PO 09/11/17 21:00 09/11/17 21:16 Vital Signs / I&O Vital Signs Date Time Temp Pulse Resp B/P (MAP) Pulse Ox O2 Delivery O2 Flow Rate FiO2 09/12/17 07:00 98.8 101 16 102/72 (82) 94 125/44 (71) 09/12/17 07:00 125/44 (112) 09/12/17 07:00 101 09/12/17 07:00 96 Nasal Cannula 5.00 09/12/17 06:00 109/43 (100) 09/12/17 06:00 101 96/67 (77) 109/43 (65) 09/12/17 05:00 123/43 (109) 09/12/17 05:00 95 110/71 09/12/17 04:00 126/47 (112) 09/12/17 03:00 120/51 (109) 09/12/17 03:00 98.6 94 22 100/77 (85) 97 120/51 (74) 09/12/17 03:00 94 09/12/17 02:00 129/49 (111) 09/12/17 01:26 97 92/69 09/12/17 01:00 112/44 (101) 09/12/17 00:00 126/47 (110) 09/11/17 23:00 129/51 (110) 09/11/17 23:00 102 09/11/17 23:00 98.9 102 18 87/66 (73) 96 129/51 (77) 09/11/17 21:31 93 Nasal Cannula 6.00 09/11/17 19:00 97 Nasal Cannula 5.00 09/11/17 19:00 131/52 (118) 09/11/17 19:00 104 09/11/17 19:00 98.8 104 20 96/68 (77) 97 131/52 (78) 09/11/17 19:00 18 09/11/17 18:00 93 90/63 (72) 120/44 (69) 09/11/17 18:00 120/156 (106) 09/11/17 17:00 118/168 (110) 09/11/17 16:09 93 Nasal Cannula 6.00 09/11/17 16:00 121/165 (120) 09/11/17 16:00 97 106/74 09/11/17 15:40 105 101/71 09/11/17 15:00 98.9 105 18 104/70 (81) 93 129/48 (75) 09/11/17 15:00 129/183 (119) 09/11/17 15:00 97 104/70 09/11/17 15:00 103 09/11/17 14:00 119/164 (109) 09/11/17 14:00 95 102/75 09/11/17 13:00 118/160 (108) 09/11/17 13:00 95 95/68 09/11/17 12:45 97 88/56 09/11/17 12:30 93 89/65 09/11/17 12:00 111/156 (103) 09/11/17 12:00 90 85/52 09/11/17 11:00 99.9 98 16 117/47 (70) 96 118/46 (70) 09/11/17 11:00 98 117/47 09/11/17 11:00 118/153 (106) 09/11/17 11:00 98 09/11/17 10:00 102 94/66 09/11/17 10:00 120/162 (111) 09/11/17 09:13 96 Simple Mask 8.00 09/11/17 09:00 123/161 (112) 09/11/17 09:00 102 101/68 09/11/17 08:34 106 108/42 I/O 09/11/17 09/11/17 09/11/17 09/12/17 09/12/17 09/12/17 07:00 15:00 23:00 07:00 15:00 23:00 Intake Total 1534 ml 240 ml 2074 ml 2264 ml Output Total 1120 ml 2770 ml 2850 ml Balance 414 ml 240 ml -696 ml -586 ml Intake Oral 480 ml 960 ml 720 ml IV Total 1054 ml 240 ml 1114 ml 1544 ml Output Urine Total 1120 ml 2770 ml 2850 ml # Bowel Movements 0 0 Physical Exam GENERAL: Well-developed well-nourished. In no acute distress. NECK: No carotid bruits. No JVD. CARDIOVASCULAR: Regular rate and rhythm. No murmur appreciated. RESPIRATORY: No accessory muscle use. Clear to auscultation. Breath sounds equal bilaterally. MUSCULOSKELETAL: No clubbing or cyanosis. No edema. NEUROLOGICAL: Awake and alert. Normal speech. Laboratory Laboratory Tests Test 09/11/17 11:57 09/11/17 13:48 09/11/17 16:05 09/11/17 21:00 Potassium Level 3.5 MEQ/L Activated Partial Thromboplast Time 37.5 SEC 38.4 SEC Phosphorus Level 2.2 MG/DL Test 09/12/17 04:20 White Blood Count 8.9 TH/MM3 Red Blood Count 3.68 MIL/MM3 Hemoglobin 12.7 GM/DL Hematocrit 37.3 % Mean Corpuscular Volume 101.5 FL Mean Corpuscular Hemoglobin 34.6 PG Mean Corpuscular Hemoglobin Concent 34.1 % Red Cell Distribution Width 13.3 % Platelet Count 121 TH/MM3 Mean Platelet Volume 8.7 FL Activated Partial Thromboplast Time 36.9 SEC Blood Urea Nitrogen 7 MG/DL Creatinine 0.76 MG/DL Random Glucose 138 MG/DL Total Protein 7.0 GM/DL Albumin 2.6 GM/DL Calcium Level 8.6 MG/DL Phosphorus Level 2.2 MG/DL Magnesium Level 1.9 MG/DL Alkaline Phosphatase 81 U/L Aspartate Amino Transf (AST/SGOT) 72 U/L Alanine Aminotransferase (ALT/SGPT) 31 U/L Total Bilirubin 0.7 MG/DL Sodium Level 136 MEQ/L Potassium Level 4.2 MEQ/L Chloride Level 102 MEQ/L Carbon Dioxide Level 27.8 MEQ/L Anion Gap 6 MEQ/L Estimat Glomerular Filtration Rate 76 ML/MIN Imaging Last 24 hours Impressions Chest X-Ray 09/12/17 0600 Signed Impressions: Service Date/Time: Tuesday, September 12, 2017 03:56 - CONCLUSION: Cardiomegaly with interstitial edema. Improving bilateral airspace disease. Ector Burns MD Assessment and Plan Problem List: (1) ST elevation [place] (STEMI) ICD Codes: I21.3 - ST elevation (STEMI) myocardial infarction of unspecified site Status: Acute (2) Acute respiratory failure with hypoxia and hypercapnia ICD Codes: J96.01 - Acute respiratory failure with hypoxia; J96.02 - Acute respiratory failure with hypercapnia (3) History of hypertension ICD Codes: Z86.79 - Personal history of other diseases of the circulatory system (4) Tobacco abuse ICD Codes: Z72.0 - Tobacco use (5) Congestive heart failure ICD Codes: I50.9 - Heart failure, unspecified Status: Acute Assessment and Plan cardiogenic shock Ischemic cardiomyopathy acute coronary syndrome/NSTEMI Severe CAD tentative plan is for CABG, workup in progress Chest x-ray today still with some edema, continue diuresis Discussed Condition With Patient with RN at bedside, CT surgery Dr. ALISA Minor Problem Qualifiers (1) ST elevation [place] (STEMI): Qualified Codes: I21.02 - ST elevation (STEMI) myocardial infarction involving left anterior descending coronary artery (2) Congestive heart failure: Qualified Codes: I50.9 - Heart failure, unspecified Long,Tirso D. PA Sep 12, 2017 08:33
[2017-09-12] MEDS ORDERED: MAGNESIUM SULFATE 1 GM PREMIX 100 ML IV ONE (08:45)
[2017-09-12] MEDS: FAMOTIDINE 20 MG TAB PO SCH ×2 (08:48→21:10)
[2017-09-12] MEDS: POTASSIUM CHLORIDE 10 MEQ CAP PO SCH ×2 (08:49→21:11)
[2017-09-12] MEDS: DOCUSATE SODIUM 50 MG/SENNA 8.6 MG TAB PO SCH ×2 (08:49→21:10)
[2017-09-12] MEDS: FUROSEMIDE 40 MG/4 ML VIAL IV PUSH SCH ×2 (08:51→18:24)
[2017-09-12] MEDS: ASPIRIN EC 81 MG TABEC PO SCH (08:51)
[2017-09-12] MEDS: SODIUM CHLORIDE 0.9% FLUSH 10 ML FLUSH IV FLUSH SCH ×2 (09:12→21:00)
--- NOTE | 2017-09-12 10:36 | HHI.CCPN ---
Subjective Remarks/Hospital Course This is a 66-year-old female. Date of admission 09/09/2017.. Past medical history includes hypertension and ongoing tobaccoism. She presents today to the [facility] emergency room emergently for chest pain radiating down her left arm as a possible STEMI alert identified by the paramedics with their twelve-lead EKG. history of tobaccoism prior hypertension which she does not want take any medication. This chest pain with left-sided radiation has been ongoing for the past 48 hours/continuous running a 5 out of 10 on a scale of 1-10 obvious tachypnea upon presentation. Also tachycardic with heart rate in 140s. Initial blood pressure systolic was 90 patient had received 4 81 mg tablets aspirin and 1 0.4 mg sublingual nitro. It was hard to get any further history than this from the patient given her respiratory distress and anxiety. EKG revealed ST elevation in leads V1 and V2 with Q waves. STEMI alert was called. Patient worsening hypoxia and was started on BiPAP. Respiratory rate initially in the 40s currently about 25 and patient "feels better". Was evaluated by Dr. Boyce. Wishes perform heart catheterization 09/10 a.m. Started on aspirin 81 mg daily furosemide 40 mg IV twice daily. Patient's current heparin drip at thousand units an hour. Cannot give nitroglycerin drip due to hypotension. As tolerated metoprolol tartrate 2.5 mg IV every 6 hours 09/10: Central line placed overnight and started on norepinephrine drip at 10 mcg/ min and dobutamine drip at 2.5 mcg/kg/h. Echocardiogram revealed EF less than 20 %. Global LV dysfunction. LVH. Pulmonary arterial pressures 53 mmHg. Cardiac catheterization revealed severe stenosis left main. LAD 95% stenosis. Circumflex 50% stenosis. Pulmonary wedge pressure 47. Cardiac index 2.3 L/min/ m. Intra-aortic balloon pump placed. CT surgery consult. Currently resting in bed on nasal cannula in CVICU 09/11: Continues on norepinephrine drip at 9 mcg/min and dobutamine drip at 2.5 mcg/kg/h. Intra-aortic balloon pump augmenting well at 1-1. Currently on 8 L simple mask. Keeping right lower extremity straight for the balloon pump. Minimal chest pain this a.m. Currently undergoing evaluation for CABG per CT surgery. Subjective 09/12: Remains positive the same. Remains a norepinephrine drip at 9 mcg/min and dobutamine drip at 2.5 mcg/kg/h. Intra-aortic balloon pump augmenting well at 1-1 ratio. Currently on 4 L nasal cannula. No chest pain this a.m. Plan for 2D echocardiogram this a.m. Objective Vital Signs Date Time Temp Pulse Resp B/P (MAP) Pulse Ox O2 Delivery O2 Flow Rate FiO2 09/12/17 10:20 95 Nasal Cannula 5.00 09/12/17 09:12 95 118/43 09/12/17 07:00 98.8 16 09/10/17 11:00 100 Intake and Output 09/12/17 09/12/17 09/13/17 08:00 16:00 00:00 Intake Total 2264 ml Output Total 2850 ml Balance -586 ml Result Diagram: 09/12/17 0420 09/12/17 0420 Imaging Last Impressions Chest X-Ray 09/12/17 0600 Signed Impressions: Service Date/Time: Tuesday, September 12, 2017 03:56 - CONCLUSION: Cardiomegaly with interstitial edema. Improving bilateral airspace disease. Ector Burns MD Chest CT 09/11/17 0000 Signed Impressions: Service Date/Time: Monday, September 11, 2017 21:56 - CONCLUSION: 1. Consolidation in both lower lobes left greater than right with patchy airspace disease in the upper and middle lobes. 2. Small bilateral pleural effusions. Crow Johnson MD Lower Extremity Ultrasound 09/10/17 0000 Signed Impressions: Service Date/Time: Sunday, September 10, 2017 11:58 - CONCLUSION: Venous mapping as delineated above. Matt Nugent MD Carotid Artery Ultrasound 09/10/17 0000 Signed Impressions: Service Date/Time: Sunday, September 10, 2017 11:02 - CONCLUSION: 1. A significant stenosis is not seen although there is mildly elevated peak systolic velocity in the left internal carotid artery. 2. Flow is not seen in the right vertebral artery. 3. Reversal of flow in diastole seen throughout the exam. This can be seen with cardiac issues including aortic insufficiency. 4. The absence of the right vertebral artery and the mildly elevated peak systolic velocity in the left internal iliac artery could be further evaluated with a CTA of the neck. Matt Nugent MD Objective Remarks GENERAL: 66-year-old female currently on 4 L nasal cannula in no acute distress SKIN: Warm and dry. HEAD: Atraumatic. Normocephalic. EYES: Pupils equal and round about 3 mm bilaterally and reactive. No scleral icterus. No injection or drainage. ENT: No nasal bleeding or discharge. Mucous membranes pink and moist. NECK: Trachea midline. No JVD. CARDIOVASCULAR: RRR. S1, S2. No S4. Augmentation intra-aortic balloon pump appreciated RESPIRATORY: Coarse crackles appreciated bilateral lower lobes. No wheezing is appreciated GASTROINTESTINAL: Abdomen soft, non-tender, nondistended. Hypoactive bowel sounds appreciated MUSCULOSKELETAL: Extremities trace to 1+ bilateral lower extremity edema. No obvious deformities. Intra-aortic balloon pump in right inguinal region clean dry and intact without hematoma. Dorsalis pedis/posterior tibialis palpable bilaterally NEUROLOGICAL: Awake and alert. No obvious cranial nerve deficits. Motor grossly within normal limits. Five out of 5 muscle strength in the arms and legs. Normal speech. Urinary Catheter: Yes Assessment to: Continue Phipps insert reason: ICU Pt Getting Diuretics Vascular Central Line Catheter: Yes Assessment to: Continue Date of Insertion: Sep 10, 2017 Line: Central Venous Catheter Side: Right Location: Internal, Jugular A/P Assessment and Plan Neuro/Psych: Acetaminophen 650 mg p.o. every 6 hours as needed fever Hydrocodone/acetaminophen 5/325 1 tablet every 4 hours as needed pain 1 through 5 Morphine sulfate 2 mg IV every 4 hours as needed pain 6 or 10 CV: Anterior STEMI Hypotension History of hypertension Elevated CPK/troponin of greater than 40 Triglyceridemia Hyperlipidemia Received 324 mg of aspirin, 0.4 mg nitroglycerin in ED. Scheduled for aspirin 81 mg p.o. daily Continue heparin drip at 900 units an hour Echocardiogram revealed EF less than 20%. LV dysfunction. LV hypertrophy. PA P 53 mmHg. Repeat echocardiogram 09/[address] surgery recommendation Continue atorvastatin 40 mg by mouth at night for dyslipidemia Dr. Minor catheterization revealed RAD 20 mmHg. RVSP 77/18 mmHg. PAP 66/37 mmHg. Pulmonary capillary wedge pressure 47 mmHg. Cardiac output 4.3 L/min. Cardiac index 2.3 L/min/m. Left main 89% stenosis. LAD 95% stenosis. Left circumflex 50% stenosis. CT surgery consultation workup currently in process Intra-aortic balloon pump placed augmented at 1-1 Can not give JORGE inhibitor secondary to hypotension Continue furosemide but increase to 80 mg IV twice daily Carotid Dopplers lack of flow in the right vertebral. Recommended CTA if indicated. High velocities left internal carotid artery. Resp: Acute hypoxic hypercapnic respiratory failure Ongoing tobaccoism Currently on nasal cannula/simple mask to maintain saturations greater than equal to 92% Incentive spirometry while awake Albuterol/ipratropium aerosols every 6 hours with albuterol aerosols every 2 hours as needed for dyspnea Chest x-ray revealed adequate positioning of right IJ CVL. Repeat chest x-ray in a.m. 09/12 Tobacco's educational self-education cessation booklet provided when clinically stable CT thorax 09/11 revealed small bilateral pleural effusions. Patchy infiltrates throughout bilateral lung milan GI: Elevated AST Hypoalbuminemia Heart healthy diet Famotidine for GI prophylaxis Docusate sodium/senna 1 tablet twice daily for bowel regimen : Phipps catheter if indicated for accurate I's and O's in a critical patient receiving diuretics Endo: Mild stress hyperglycemia Sliding scale insulin with Accu-Cheks before meals/at bedtime to maintain euglycemia/low regimen of NovoLog Noted hemoglobin A1c 5.2 and TSH 0.99 Renal: Creatinine currently within normal limits Monitor urine output while on diuretics Accurate I's and O's Heme: Thrombocytopenia Monitor CBC daily. Follow trends Currently on heparin drip at 900 units an hour ID: Monitor for signs and symptoms of infection MSK: PT evaluate and treat FEN: Hypophosphatemia Follow-up on BMP in a.m. especially since on furosemide Electrolyte ICU protocol initiated Receiving 30 mmol sodium phosphorus this a.m. Scheduled 10 mEq potassium chloride p.o. twice daily while on furosemide Access Right IJ CVL day #2 placed 09/10 Prophylaxis -GI -famotidine -DVT -SCD/heparin drip Critical Care: The total critical care time was 35 minutes. Time to perform other separately billable procedures was not included in the critical care time. Prasanth Nix MD Sep 12, 2017 10:36
[2017-09-12] MEDS: ACETAMINOPHEN/HYDROcodone 325 MG/5 MG TAB PO PRN ×2 (10:42→21:10)
--- NOTE | 2017-09-12 14:38 | ECHRPT ---
Indication: EF for CHF CONCLUSIONS The left ventricular systolic function is severely reduced with an estimated ejection fraction in th e range of 30-35%. Wall thickness is normal. Normal left ventricular size. BP: 110 / 45 HR: 92 Rhythm: Sinus MEASUREMENTS (Male / Female) Normal Values Technical Quality:Good 2D ECHO LV Diastolic Diameter PLAX 5.5 cm 4.2 - 5.9 / 3.9 - 5.3 cm LV Systolic Diameter PLAX 4.8 cm IVS Diastolic Thickness 1.0 cm 0.6 - 1.0 / 0.6 - 0.9 cm LVPW Diastolic Thickness 1.0 cm 0.6 - 1.0 / 0.6 - 0.9 cm LV Relative Wall Thickness 0.4 LV Ejection Fraction MOD BP 31.4 % >= 55 % LV Cardiac Index MOD BP 1558.1 cm/minm LV Ejection Fraction MOD 4C 37.6 % LV Cardiac Index MOD 4C 1652.5 cm/minm LV Ejection Fraction 4C AL 39.4 % LV Cardiac Index 4C AL 1873.3 cm/minm LV Ejection Fraction MOD 2C 23.1 % LV Cardiac Index MOD 2C 1180.4 cm/minm LV Ejection Fraction 2C AL 23.4 % LV Cardiac Index 2C AL 1284.9 cm/minm FINDINGS LEFT VENTRICLE The left ventricular systolic function is severely reduced with an estimated ejection fraction in th e range of 30-35%. Wall thickness is normal. Normal left ventricular size. RIGHT VENTRICLE Normal right ventricular size and systolic function. LEFT ATRIUM The left atrial size is mildly dilated. RIGHT ATRIUM The right atrial size is normal. ATRIAL SEPTUM Normal atrial septal thickness without atrial level shunting by limited color doppler interrogation. AORTA The aortic root and proximal ascending aorta are normal in size on limited imaging. MITRAL VALVE Mild thickening of the mitral valve leaflets. Mild mitral valve regurgitation. AORTIC VALVE Trileaflet aortic valve. No aortic valve stenosis or regurgitation. TRICUSPID VALVE Mild thickening of the tricuspid valve leaflets. There is mild tricuspid valve regurgitation. PULMONARY VALVE The pulmonary valve is not well visualized. VESSELS The inferior vena cava is normal in size. PERICARDIUM No pericardial effusion. Manuel Boyce MD, FACC (Electronically Signed) Final Date:12 September 2017 14:37
[2017-09-12] MEDS: DOBUTamine INJ 250 MG in DEXTROSE 5% IN WATER INJ 230 ML IV PRN ×2 (15:32)
--- NOTE | 2017-09-12 16:20 | PD.CAR.PN ---
CVT Progress Note Subjective/Hospital Course: 66-year-old female who presented to the emergency room on 09/09/2017, brought in emergently with chest pain also radiating down her left arm, possible STEMI Alert with a 12-lead EKG changes, has not had any primary care followup in many years. Pain had been going on for 2 days prior to ER admission, was complaining of shortness of breath, was found to be somewhat tachycardic, tachypneic, hypotensive. She thought initially that it was heartburn-type symptoms. Initial EKG showed ST elevation in V1, V2; however, there were some Q -waves in the precordial leads, with poor R-wave progression. The patient was admitted to the intensive care unit, was started on a heparin drip, nitro drip. She was found to be hypoxic, hypercapnic respiratory failure, history of tobacco abuse. She underwent cardiac catheterization today by Dr. Boyce which showed left main had an ostial 80-90% stenosis, was heavily calcified at the bifurcation of the left anterior descending and left circumflex artery. The LAD was subtotally occluded with a 95% stenosis. The circ had a 50% eccentric stenosis. The right coronary artery was nondominant. EF was approximately 25- 30%, global hypokinesis, mostly pronounced in the anterolateral apical and inferior lateral apical distribution. She also had some stenosis in the left subclavian artery 30%. Due to the high grade left main disease and LAD, she had an intraaortic balloon pump placed. She also underwent right-sided heart catheterization, which showed right atrial pressures of 20, RV pressure is 77/18, pulmonary capillary wedge pressure measured at 47. Cardiac output of 4.3 with an index of 2.3. During the course of the cardiac catheterization, she was also placed on a Levophed drip and a dobutamine drip in addition to the intraaortic balloon pump in the right groin at a 1:1 augmentation. We were consulted to evaluate for coronary artery bypass grafting. The patient also had a 2D echocardiogram, which showed EF of less than 20%, mild mitral regurgitation, trace tricuspid regurgitation. 4/10 breathing better per pt no chest pain, only some back discomfort, IABP right groin 1:1 augmentation remains on dobutamine at 2.5mcq, and levophed at 7 mcq lasix bid , for repeat ECHO in am remains on 8 liter simple mask timing for surgery per Dr Byrd 09/12 EF 30-35% scheduled for surgery on sunday Dr Byrd spoke with pt and daughter off Levo gtt , on heparin and dobutamine IABP 1: 1 right groin , consider weaning dobutamine / and or augmentation Objective: GENERAL: SKIN: Warm and dry. HEAD: Normocephalic. EYES: No scleral icterus. No injection or drainage. NECK: Supple, trachea midline. No JVD or lymphadenopathy. CARDIOVASCULAR: Regular rate and rhythm without murmurs, gallops, or rubs. IABP 1:1 right groin , with doppler pulse RESPIRATORY: Breath sounds equal bilaterally. No accessory muscle use. diminished in bases GASTROINTESTINAL: Abdomen soft, non-tender, nondistended. MUSCULOSKELETAL: No cyanosis, or edema. BACK: Nontender without obvious deformity. No CVA tenderness. Vital Signs Date Time Temp Pulse Resp B/P (MAP) Pulse Ox O2 Delivery O2 Flow Rate FiO2 09/12/17 14:00 95/38 (93) 09/12/17 13:00 104/44 (95) 09/12/17 12:00 100/40 (92) 09/12/17 11:00 112/41 (104) 09/12/17 11:00 101 09/12/17 11:00 100.4 98 16 158/74 (102) 97 112/41 (64) 09/12/17 10:40 142/76 09/12/17 10:20 95 Nasal Cannula 5.00 09/12/17 10:00 124/48 (114) 09/12/17 09:50 159/84 09/12/17 09:40 156/88 09/12/17 09:12 95 118/43 09/12/17 09:00 164/86 09/12/17 09:00 138/50 (118) 09/12/17 08:00 132/50 (116) 09/12/17 07:00 98.8 101 16 102/72 (82) 94 125/44 (71) 09/12/17 07:00 125/44 (112) 09/12/17 07:00 101 09/12/17 07:00 96 Nasal Cannula 5.00 09/12/17 06:00 109/43 (100) 09/12/17 06:00 101 96/67 (77) 109/43 (65) 09/12/17 05:00 123/43 (109) 09/12/17 05:00 95 110/71 09/12/17 04:00 126/47 (112) 09/12/17 03:00 120/51 (109) 09/12/17 03:00 98.6 94 22 100/77 (85) 97 120/51 (74) 09/12/17 03:00 94 09/12/17 02:00 129/49 (111) 09/12/17 01:26 97 92/69 09/12/17 01:00 112/44 (101) 09/12/17 00:00 126/47 (110) 09/11/17 23:00 129/51 (110) 09/11/17 23:00 102 09/11/17 23:00 98.9 102 18 87/66 (73) 96 129/51 (77) 09/11/17 21:31 93 Nasal Cannula 6.00 09/11/17 19:00 97 Nasal Cannula 5.00 09/11/17 19:00 131/52 (118) 09/11/17 19:00 104 09/11/17 19:00 98.8 104 20 96/68 (77) 97 131/52 (78) 09/11/17 19:00 18 09/11/17 18:00 93 90/63 (72) 120/44 (69) 09/11/17 18:00 120/156 (106) 09/11/17 17:00 118/168 (110) Labs: Laboratory Tests Test 09/12/17 04:20 09/12/17 11:00 White Blood Count 8.9 TH/MM3 (4.0-11.0) Red Blood Count 3.68 MIL/MM3 (4.00-5.30) Hemoglobin 12.7 GM/DL (11.6-15.3) Hematocrit 37.3 % (35.0-46.0) Mean Corpuscular Volume 101.5 FL (80.0-100.0) Mean Corpuscular Hemoglobin 34.6 PG (27.0-34.0) Mean Corpuscular Hemoglobin Concent 34.1 % (32.0-36.0) Red Cell Distribution Width 13.3 % (11.6-17.2) Platelet Count 121 TH/MM3 (150-450) Mean Platelet Volume 8.7 FL (7.0-11.0) Activated Partial Thromboplast Time 36.9 SEC (24.3-30.1) 38.9 SEC (24.3-30.1) Blood Urea Nitrogen 7 MG/DL (7-18) Creatinine 0.76 MG/DL (0.50-1.00) Random Glucose 138 MG/DL (74-106) Total Protein 7.0 GM/DL (6.4-8.2) Albumin 2.6 GM/DL (3.4-5.0) Calcium Level 8.6 MG/DL (8.5-10.1) Phosphorus Level 2.2 MG/DL (2.5-4.9) Magnesium Level 1.9 MG/DL (1.5-2.5) Alkaline Phosphatase 81 U/L (45-117) Aspartate Amino Transf (AST/SGOT) 72 U/L (15-37) Alanine Aminotransferase (ALT/SGPT) 31 U/L (10-53) Total Bilirubin 0.7 MG/DL (0.2-1.0) Sodium Level 136 MEQ/L (136-145) Potassium Level 4.2 MEQ/L (3.5-5.1) Chloride Level 102 MEQ/L (98-107) Carbon Dioxide Level 27.8 MEQ/L (21.0-32.0) Anion Gap 6 MEQ/L (5-15) Estimat Glomerular Filtration Rate 76 ML/MIN (>89) Result Diagram: 09/12/1741909/12/17 042 (1) ST elevation RI (STEMI) Plan: on ASA no BB , on heparin weaned off levophed wtill on dobutamine at 2.5mcq IABP 1:1 (2) Acute respiratory failure with hypoxia and hypercapnia Plan: some improvement with diuresis (3) History of hypertension (4) Tobacco abuse Plan: smoking cessation (5) Congestive heart failure Problem Qualifiers (1) ST elevation RI (STEMI): Qualified Codes: I21.02 - ST elevation (STEMI) myocardial infarction involving left anterior descending coronary artery (2) Congestive heart failure: Qualified Codes: I50.9 - Heart failure, unspecified Danni Bales Sep 12, 2017 16:20
[2017-09-12 19:21] LABS: BICARBONATE 27.3 MEQ/L (21.0-32.0); CALCIUM 8.4 MG/DL (8.5-10.1); CREATININE 0.58 MG/DL (0.50-1.00); MAGNESIUM 2.1 MG/DL (1.5-2.5); PHOSPHORUS 3.7 MG/DL (2.5-4.9)
[2017-09-12] MEDS: ATORVASTATIN 40 MG TAB PO SCH (21:11)
[2017-09-13] VITALS (10 sets, daily range): BP systolic 101–173; BP diastolic 38–100; PULSE 82–103; RESP 16–18; TEMP 93–99.9; O2SAT 94–97
[2017-09-13] MEDS: MORPHINE SULFATE 4 MG/ML INJ IV PUSH PRN
[2017-09-13] MEDS: RESP: ALBUTEROL 2.5 MG/IPRATROPIUM 0.5 MG NEB (SCH) INH ×4 (03:20→19:50)
[2017-09-13] MEDS: CHLORHEXIDINE GLUCONATE 2 % 1 PACK (2 CLOTHS) TOP SCH (04:00)
[2017-09-13 04:17] LABS: HEMATOCRIT 35.6 % (35.0-46.0); HEMOGLOBIN 12.3 GM/DL (11.6-15.3); MEAN CELL VOLUME 99.6 FL (80.0-100.0); MEAN CORPUSCULAR HEMOGLOBIN 34.5 PG (27.0-34.0); MEAN CORPUSCULAR HGB CONC 34.7 % (32.0-36.0); MEAN PLATELET VOLUME 8.8 FL (7.0-11.0); PLATELET COUNT 119 TH/MM3 (150-450); RED BLOOD COUNT 3.58 MIL/MM3 (4.00-5.30); RED CELL DISTRIBUTION WIDTH 13.1 % (11.6-17.2)
[2017-09-13 04:47] LABS: BICARBONATE 28.4 MEQ/L (21.0-32.0); CALCIUM 9.1 MG/DL (8.5-10.1); CREATININE 0.7 MG/DL (0.50-1.00); PHOSPHORUS 3.8 MG/DL (2.5-4.9)
--- NOTE | 2017-09-13 04:53 | RADRPT ---
EXAM DATE/TIME: 09/13/2017 03:30 [facility] COMPARISON: CHEST SINGLE AP, September 12, 2017, 3:56. INDICATIONS : Shortness of breath, possible pulmonary disease. MEDICAL HISTORY : None. SURGICAL HISTORY : None. ENCOUNTER: Subsequent ACUITY: 3 days PAIN SCORE: 0/10 LOCATION: Bilateral chest FINDINGS: A single view of the chest demonstrates a cardiomegaly and bilateral airspace disease. Right jugular central line in stable position. Osseous structures are intact. CONCLUSION: Bilateral airspace disease slightly more prominent. Ector Burns MD on September 13, 2017 at 4:51 Board Certified Radiologist. This report was verified electronically.
[2017-09-13] MEDS ORDERED: HYDROmorphone HCL PF 2 MG/ML VIAL IV PUSH PRN (06:45)
--- NOTE | 2017-09-13 06:58 | HHI.CCPN ---
Subjective Remarks/Hospital Course This is a 66-year-old female. Date of admission 09/09/2017.. Past medical history includes hypertension and ongoing tobaccoism. She presents today to the [facility] emergency room emergently for chest pain radiating down her left arm as a possible STEMI alert identified by the paramedics with their twelve-lead EKG. history of tobaccoism prior hypertension which she does not want take any medication. This chest pain with left-sided radiation has been ongoing for the past 48 hours/continuous running a 5 out of 10 on a scale of 1-10 obvious tachypnea upon presentation. Also tachycardic with heart rate in 140s. Initial blood pressure systolic was 90 patient had received 4 81 mg tablets aspirin and 1 0.4 mg sublingual nitro. It was hard to get any further history than this from the patient given her respiratory distress and anxiety. EKG revealed ST elevation in leads V1 and V2 with Q waves. STEMI alert was called. Patient worsening hypoxia and was started on BiPAP. Respiratory rate initially in the 40s currently about 25 and patient "feels better". Was evaluated by Dr. Boyce. Wishes perform heart catheterization 09/10 a.m. Started on aspirin 81 mg daily furosemide 40 mg IV twice daily. Patient's current heparin drip at thousand units an hour. Cannot give nitroglycerin drip due to hypotension. As tolerated metoprolol tartrate 2.5 mg IV every 6 hours 09/10: Central line placed overnight and started on norepinephrine drip at 10 mcg/ min and dobutamine drip at 2.5 mcg/kg/min. Echocardiogram revealed EF less than 20%. Global LV dysfunction. LVH. Pulmonary arterial pressures 53 mmHg. Cardiac catheterization revealed severe stenosis left main. LAD 95% stenosis. Circumflex 50% stenosis. Pulmonary wedge pressure 47. Cardiac index 2.3 L/min/ m. Intra-aortic balloon pump placed. CT surgery consult. Currently resting in bed on nasal cannula in CVICU 09/11: Continues on norepinephrine drip at 9 mcg/min and dobutamine drip at 2.5 mcg/kg/min. Intra-aortic balloon pump augmenting well at 1-1. Currently on 8 L simple mask. Keeping right lower extremity straight for the balloon pump. Minimal chest pain this a.m. Currently undergoing evaluation for CABG per CT surgery. 09/12: Remains positive the same. Remains a norepinephrine drip at 9 mcg/min and dobutamine drip at 2.5 mcg/kg/min. Intra-aortic balloon pump augmenting well at 1-1 ratio. Currently on 4 L nasal cannula. No chest pain this a.m. Plan for 2D echocardiogram this a.m. Subjective 09/13: Afebrile. Weaned off norepinephrine drip. Remains on dobutamine drip at 2.5 mcg/kg/min. Denies chest pain. 4-5 L nasal cannula. Objective Vital Signs Date Time Temp Pulse Resp B/P (MAP) Pulse Ox O2 Delivery O2 Flow Rate FiO2 09/13/17 06:00 101/38 (97) 09/13/17 06:00 97 09/13/17 03:00 98.7 18 97 09/12/17 20:37 Nasal Cannula 4.00 09/10/17 11:00 100 Intake and Output 09/13/17 09/13/17 09/14/17 08:00 16:00 00:00 Intake Total 240 ml Output Total 2000 ml Balance -1760 ml Result Diagram: 09/13/17 0355 09/13/17 0355 Imaging Last Impressions Chest X-Ray 09/13/17 0600 Signed Impressions: Service Date/Time: September 03:30 - CONCLUSION: Bilateral airspace disease slightly more prominent. Ector Burns MD Chest CT 09/11/17 0000 Signed Impressions: Service Date/Time: Monday, September 11, 2017 21:56 - CONCLUSION: 1. Consolidation in both lower lobes left greater than right with patchy airspace disease in the upper and middle lobes. 2. Small bilateral pleural effusions. Crow Johnson MD Lower Extremity Ultrasound 09/10/17 0000 Signed Impressions: Service Date/Time: Sunday, September 10, 2017 11:58 - CONCLUSION: Venous mapping as delineated above. Matt Nugent MD Carotid Artery Ultrasound 09/10/17 0000 Signed Impressions: Service Date/Time: Sunday, September 10, 2017 11:02 - CONCLUSION: 1. A significant stenosis is not seen although there is mildly elevated peak systolic velocity in the left internal carotid artery. 2. Flow is not seen in the right vertebral artery. 3. Reversal of flow in diastole seen throughout the exam. This can be seen with cardiac issues including aortic insufficiency. 4. The absence of the right vertebral artery and the mildly elevated peak systolic velocity in the left internal iliac artery could be further evaluated with a CTA of the neck. Matt Nugent MD Objective Remarks GENERAL: 66-year-old female currently on 4 L nasal cannula in no acute distress SKIN: Warm and dry. HEAD: Atraumatic. Normocephalic. EYES: Pupils equal and round about 3 mm bilaterally and reactive. No scleral icterus. No injection or drainage. ENT: No nasal bleeding or discharge. Mucous membranes pink and moist. NECK: Trachea midline. No JVD. CARDIOVASCULAR: RRR. S1, S2. No S4. Augmentation intra-aortic balloon pump appreciated RESPIRATORY: Coarse crackles appreciated bilateral lower lobes. No wheezing is appreciated GASTROINTESTINAL: Abdomen soft, non-tender, nondistended. Hypoactive bowel sounds appreciated MUSCULOSKELETAL: Extremities trace to 1+ bilateral lower extremity edema. No obvious deformities. Intra-aortic balloon pump in right inguinal region clean dry and intact without hematoma. Dorsalis pedis/posterior tibialis palpable bilaterally NEUROLOGICAL: Awake and alert. No obvious cranial nerve deficits. Motor grossly within normal limits. Five out of 5 muscle strength in the arms and legs. Normal speech. Urinary Catheter: Yes Assessment to: Continue Phipps insert reason: Prolonged Immobilization Vascular Central Line Catheter: Yes Assessment to: Continue Date of Insertion: Sep 10, 2017 Line: Central Venous Catheter Side: Right Location: Internal, Jugular A/P Assessment and Plan Neuro/Psych: Acetaminophen 650 mg p.o. every 6 hours as needed fever Hydrocodone/acetaminophen 5/325 1 tablet every 4 hours as needed pain 1 through 5 Morphine sulfate changed to hydromorphone 0.5 mg IV every 4 hours as needed pain 6 or 10 CV: Anterior STEMI Hypotension History of hypertension Elevated CPK/troponin of greater than 40 Triglyceridemia Hyperlipidemia Received 324 mg of aspirin, 0.4 mg nitroglycerin in ED. Scheduled for aspirin 81 mg p.o. daily Continue heparin drip at 1600 units an hour Echocardiogram revealed EF less than 20%. LV dysfunction. LV hypertrophy. PA P 53 mmHg. Repeat echocardiogram 09/[address] surgery recommendation revealed EF 30-35%. Continue atorvastatin 40 mg by mouth at night for dyslipidemia Dr. Minor catheterization revealed RAD 20 mmHg. RVSP 77/18 mmHg. PAP 66/37 mmHg. Pulmonary capillary wedge pressure 47 mmHg. Cardiac output 4.3 L/min. Cardiac index 2.3 L/min/m. Left main 89% stenosis. LAD 95% stenosis. Left circumflex 50% stenosis. Intra-aortic balloon pump placed augmented at 1-1 Can not give JORGE inhibitor secondary to hypotension Continue furosemide but increase to 80 mg IV twice daily Currently on dobutamine drip at 2.5 mcg/kg/min. Norepinephrine has been weaned off Carotid Dopplers lack of flow in the right vertebral. Recommended CTA if indicated. High velocities left internal carotid artery. Plan for CABG 09/14 a.m. Resp: Acute hypoxic hypercapnic respiratory failure Ongoing tobaccoism Currently on nasal cannula/simple mask to maintain saturations greater than equal to 92% Incentive spirometry while awake Albuterol/ipratropium aerosols every 6 hours with albuterol aerosols every 2 hours as needed for dyspnea Chest x-ray revealed adequate positioning of right IJ CVL. Repeat chest x-ray in a.m. 09/12 Tobacco's educational self-education cessation booklet provided when clinically stable CT thorax 09/11 revealed small bilateral pleural effusions. Patchy infiltrates throughout bilateral lung milan GI: Elevated AST Hypoalbuminemia Heart healthy diet Famotidine for GI prophylaxis Docusate sodium/senna 1 tablet twice daily for bowel regimen : Phipps catheter if indicated for accurate I's and O's in a critical patient receiving diuretics Endo: Mild stress hyperglycemia Sliding scale insulin with Accu-Cheks before meals/at bedtime to maintain euglycemia/low regimen of NovoLog Noted hemoglobin A1c 5.2 and TSH 0.99 Renal: Creatinine currently within normal limits Monitor urine output while on diuretics Accurate I's and O's Heme: Thrombocytopenia Monitor CBC daily. Follow trends Currently on heparin drip at 1600 units an hour ID: Monitor for signs and symptoms of infection MSK: PT evaluate and treat FEN: Follow-up on BMP in a.m. especially since on furosemide Electrolyte ICU protocol initiated Scheduled 10 mEq potassium chloride p.o. twice daily while on furosemide Access Right IJ CVL day #4 placed 09/10 Prophylaxis -GI -famotidine -DVT -SCD/heparin drip Critical Care: The total critical care time was 35 minutes. Time to perform other separately billable procedures was not included in the critical care time. Prasanth Nix MD Sep 13, 2017 06:58
--- NOTE | 2017-09-13 07:36 | PD.CARD.PN ---
Subjective Subjective Remarks RN at bedside. No issues. Off Levophed yesterday and on low dose dobutamine. No chest pain. Breathing is good on 4-5L on nasal cannula. Diuresing well. Surgery tentatively planned for tomorrow. (Tirso Leach) Objective Medications Current Medications Medications (Trade) Dose Ordered Sig/Shraddha Route Start Time Stop Time Status Last Admin Nitroglycerin/ Dextrose 250 ml @ 3 mls/hr TITRATE PRN IV 09/09/17 10:30 Heparin Sodium/ Dextrose 250 ml @ 10 mls/hr TITRATE PRN IV 09/09/17 10:45 09/12/17 21:31 (Ecotrin Ec) 81 mg DAILY PO 09/10/17 09:00 09/12/17 08:51 (Tylenol) 650 mg Q6H PRN PO 09/09/17 13:00 09/09/17 18:16 (Winslow 5-325 Mg) 1 tab Q4H PRN PO 09/09/17 13:00 09/12/17 21:10 (Pepcid) 20 mg Q12HR PO 09/09/17 21:00 09/12/17 21:10 (Zofran Inj) 4 mg Q6H PRN IV PUSH 09/09/17 14:00 (Albuterol Neb) 2.5 mg Q2HR NEB PRN INH 09/09/17 13:00 Miscellaneous Information 1 Q361D XX 09/09/17 12:30 09/09/17 12:30 (Chlorhexidine 2% Cloth) 3 pack Taper DAILY@04 TOP 09/10/17 04:00 09/06/18 03:59 09/12/17 04:00 (Chlorhexidine 2% Cloth) 3 pack UNSCH PRN TOP 09/09/17 12:30 (Kiya-Colace) 1 tab BID PO 09/09/17 21:00 09/12/17 21:10 (Milk Of Magnesia Liq) 30 ml Q12H PRN PO 09/09/17 14:00 (Senokot) 17.2 mg Q12H PRN PO 09/09/17 12:30 (Dulcolax Supp) 10 mg DAILY PRN RECTAL 09/09/17 14:00 (Lactulose Liq) 30 ml DAILY PRN PO 09/09/17 14:00 (Glucagon Inj) 1 mg UNSCH PRN OTHER 09/09/17 12:45 (NovoLOG SUPPLEMENTAL SCALE) 1 ACHS SLIDING SCALE SQ 09/09/17 17:00 09/11/17 21:00 Potassium Chloride 100 ml @ 50 mls/hr Q2H PRN IV 09/09/17 14:00 Potassium Chloride 100 ml @ 50 mls/hr Q2H PRN IV 09/09/17 12:45 (K-Lyte Cl Eff) 50 meq UNSCH PRN PO 09/09/17 12:45 Potassium Chloride 100 ml @ 25 mls/hr UNSCH PRN IV 09/09/17 12:45 Potassium Chloride 100 ml @ 50 mls/hr Q2H PRN IV 09/09/17 12:45 09/11/17 17:22 Magnesium Sulfate 4 gm/Sodium Chloride 100 ml @ 50 mls/hr UNSCH PRN IV 09/09/17 12:45 (Mag-Ox) 800 mg UNSCH PRN PO 09/09/17 12:45 Magnesium Sulfate 2 gm/Sodium Chloride 100 ml @ 50 mls/hr UNSCH PRN IV 09/09/17 12:45 09/10/17 21:07 (K-Phos) 2,000 mg Q4H PRN PO 09/09/17 12:45 Sodium Phosphate 30 mmol/Sodium Chloride 250 ml @ 42 mls/hr UNSCH PRN IV 09/09/17 12:45 09/12/17 08:19 (K-Phos) 2,000 mg UNSCH PRN PO/TUBE 09/09/17 12:45 Potassium Phosphate 30 mmol/ Sodium Chloride 260 ml @ 42 mls/hr UNSCH PRN IV 09/09/17 12:45 (Lipitor) 40 mg HS PO 09/10/17 21:00 09/12/17 21:11 Norepinephrine Bitartrate 250 ml @ 7.5 mls/hr TITRATE PRN IV 09/10/17 00:00 09/12/17 09:12 (Brethine Inj) 1 mg UNSCH PRN SQ 09/10/17 00:00 (NS Flush) 2 ml BID IV FLUSH 09/10/17 21:00 09/12/17 21:00 (NS Flush) 2 ml UNSCH PRN IV FLUSH 09/10/17 10:00 09/13/17 00:00 Papaverine HCl 60 mg/Nitroglycerin 100 mcg/Diltiazem HCl 100 mg/Sodium Chloride 100 ml @ 0 mls/hr LOG PEELER IRRIGATION 09/10/17 10:00 09/17/17 09:59 Cefazolin Sodium 500 mg/Sodium Chloride 505 ml @ 0 mls/hr LOG PEELER IRRIGATION 09/10/17 10:00 09/17/17 09:59 Cefazolin Sodium/ Dextrose 50 ml @ 150 mls/hr LOG PEELER IV 09/10/17 10:00 09/17/17 09:59 (Lopressor) 12.5 mg LOG PEELER PO 09/10/17 10:00 09/17/17 09:59 (Hibiclens 4% Top Soln) 1 applic LOG PEELER TOPICAL 09/10/17 10:00 09/17/17 09:59 Insulin Human Regular 100 units/ Sodium Chloride 100 ml @ 3 mls/hr TITRATE PRN IV 09/10/17 10:00 09/17/17 09:59 (D50w (Vial) Inj) 50 ml UNSCH PRN IV PUSH 09/10/17 10:00 Dobutamine HCl 250 mg/Dextrose 250 ml @ 11.92 mls/ hr [id number] PRN IV 09/10/17 18:45 09/12/17 15:32 (Lasix Inj) 80 mg BID@,18 IV PUSH 09/11/17 09:00 09/12/17 18:24 (KCl) 30 meq BID PO 09/11/17 21:00 09/12/17 21:11 (Duoneb Neb) 1 ampule Q6HR NEB INH 09/13/17 10:00 (Dilaudid Pf Inj) 0.5 mg Q4H PRN IV PUSH 09/13/17 06:45 Vital Signs / I&O Vital Signs Date Time Temp Pulse Resp B/P (MAP) Pulse Ox O2 Delivery O2 Flow Rate FiO2 09/13/17 06:00 101/38 (97) 09/13/17 06:00 97 154/80 (104) 101/38 (59) 09/13/17 05:00 101/38 (97) 09/13/17 04:00 102/39 (98) 09/13/17 03:00 84 09/13/17 03:00 98.7 100 18 129/85 (100) 97 113/45 (67) 09/13/17 03:00 113/45 (105) 09/13/17 02:00 118/52 (107) 09/13/17 01:00 120/47 (102) 09/13/17 00:00 107/40 (97) 09/12/17 23:00 133/40 (105) 09/12/17 23:00 98.6 100 20 126/81 (96) 96 133/40 (71) 09/12/17 23:00 100 09/12/17 22:13 18 09/12/17 22:00 108/42 (99) 09/12/17 21:00 107/40 (100) 09/12/17 20:37 97 Nasal Cannula 4.00 09/12/17 20:00 108/42 (99) 09/12/17 19:00 96 Nasal Cannula 4.00 09/12/17 19:00 100 09/12/17 19:00 108/39 (97) 09/12/17 19:00 98.7 100 18 119/66 (83) 96 108/39 (62) 09/12/17 18:00 97 143/62 (89) 112/43 (66) 09/12/17 18:00 112/43 (103) 09/12/17 17:00 106/41 (101) 09/12/17 16:00 124/52 (116) 09/12/17 15:00 107/42 (103) 09/12/17 15:00 98.6 90 16 135/77 (96) 97 107/42 (63) 09/12/17 15:00 90 09/12/17 14:00 95/38 (93) 09/12/17 13:00 104/44 (95) 09/12/17 12:00 100/40 (92) 09/12/17 11:00 112/41 (104) 09/12/17 11:00 101 09/12/17 11:00 100.4 98 16 158/74 (102) 97 112/41 (64) 09/12/17 10:40 142/76 09/12/17 10:20 95 Nasal Cannula 5.00 09/12/17 10:00 124/48 (114) 09/12/17 09:50 159/84 09/12/17 09:40 156/88 09/12/17 09:12 95 118/43 09/12/17 09:00 164/86 09/12/17 09:00 138/50 (118) 09/12/17 08:00 132/50 (116) I/O 09/12/17 09/12/17 09/12/17 09/13/17 09/13/17 09/13/17 07:00 15:00 23:00 07:00 15:00 23:00 Intake Total 2264 ml 100 ml 1960 ml 240 ml Output Total 2850 ml 3075 ml 2000 ml Balance -586 ml 100 ml -1115 ml -1760 ml Intake Oral 720 ml 960 ml 240 ml IV Total 1544 ml 100 ml 1000 ml Output Urine Total 2850 ml 3075 ml 2000 ml # Bowel Movements 0 0 Physical Exam GENERAL: Well-developed well-nourished. In no acute distress. NECK: No carotid bruits. No JVD. CARDIOVASCULAR: Regular rate and rhythm. No murmur appreciated. IABP in place in right groin. RESPIRATORY: No accessory muscle use. Clear to auscultation. Breath sounds equal bilaterally. MUSCULOSKELETAL: No clubbing or cyanosis. No edema. NEUROLOGICAL: Awake and alert. Normal speech. Laboratory Laboratory Tests Test 09/12/17 11:00 09/12/17 18:20 09/13/17 03:55 Activated Partial Thromboplast Time 38.9 SEC 40.4 SEC 41.5 SEC Blood Urea Nitrogen 7 MG/DL 9 MG/DL Creatinine 0.58 MG/DL 0.70 MG/DL Random Glucose 113 MG/DL 105 MG/DL Calcium Level 8.4 MG/DL 9.1 MG/DL Phosphorus Level 3.7 MG/DL 3.8 MG/DL Magnesium Level 2.1 MG/DL 2.0 MG/DL Sodium Level 137 MEQ/L 136 MEQ/L Potassium Level 3.8 MEQ/L 4.2 MEQ/L Chloride Level 102 MEQ/L 101 MEQ/L Carbon Dioxide Level 27.3 MEQ/L 28.4 MEQ/L Anion Gap 8 MEQ/L 7 MEQ/L Estimat Glomerular Filtration Rate 104 ML/MIN 83 ML/MIN White Blood Count 7.0 TH/MM3 Red Blood Count 3.58 MIL/MM3 Hemoglobin 12.3 GM/DL Hematocrit 35.6 % Mean Corpuscular Volume 99.6 FL Mean Corpuscular Hemoglobin 34.5 PG Mean Corpuscular Hemoglobin Concent 34.7 % Red Cell Distribution Width 13.1 % Platelet Count 119 TH/MM3 Mean Platelet Volume 8.8 FL Imaging Last 24 hours Impressions Chest X-Ray 09/13/17 0600 Signed Impressions: Service Date/Time: September 03:30 - CONCLUSION: Bilateral airspace disease slightly more prominent. Ector Burns MD (Tirso Leach) Assessment and Plan Problem List: (1) ST elevation [place] (STEMI) ICD Codes: I21.3 - ST elevation (STEMI) myocardial infarction of unspecified site Status: Acute (2) Acute respiratory failure with hypoxia and hypercapnia ICD Codes: J96.01 - Acute respiratory failure with hypoxia; J96.02 - Acute respiratory failure with hypercapnia (3) History of hypertension ICD Codes: Z86.79 - Personal history of other diseases of the circulatory system (4) Tobacco abuse ICD Codes: Z72.0 - Tobacco use (5) Congestive heart failure ICD Codes: I50.9 - Heart failure, unspecified Status: Acute Assessment and Plan cardiogenic shock Ischemic cardiomyopathy, EF 35% acute coronary syndrome/NSTEMI Severe CAD tentative planning for CABG tomorrow Chest x-ray today reviewed with edema and basilar airspace disease, continue diuresis (Tirso Leach) Assessment and Plan ICM EF35% IABP with good BP augmentation. Severe CAD wean dobutamine gtt. SBP looks good implying hopeful viability. continue diuresis Plan for CABG tomorrow (Manuel Boyce MD) Problem Qualifiers (1) ST elevation [place] (STEMI): Qualified Codes: I21.02 - ST elevation (STEMI) myocardial infarction involving left anterior descending coronary artery (2) Congestive heart failure: Qualified Codes: I50.9 - Heart failure, unspecified Tirso Leach Sep 13, 2017 07:36 Manuel Boyce MD Sep 13, 2017 09:55
[2017-09-13] MEDS: INSULIN ASPART SUPPLEMENTAL SCALE SQ SCH ×4 (08:00→21:00)
[2017-09-13] MEDS: DOCUSATE SODIUM 50 MG/SENNA 8.6 MG TAB PO SCH ×2 (08:12→21:00)
[2017-09-13] MEDS: FAMOTIDINE 20 MG TAB PO SCH ×2 (08:12→21:46)
[2017-09-13] MEDS: POTASSIUM CHLORIDE 10 MEQ CAP PO SCH ×2 (08:12→21:46)
[2017-09-13] MEDS: ASPIRIN EC 81 MG TABEC PO SCH (08:12)
[2017-09-13] MEDS: SODIUM CHLORIDE 0.9% FLUSH 10 ML FLUSH IV FLUSH SCH ×2 (08:13→21:00)
[2017-09-13] MEDS: FUROSEMIDE 40 MG/4 ML VIAL IV PUSH SCH ×2 (08:13→17:32)
[2017-09-13] MEDS ORDERED: PAPAVERINE INJ 60 MG, NITROGLYCERIN INJ 100 MCG, VERAPAMIL INJ 100 MG in SODIUM CHLORID... IRRIGATION SCH (08:30)
[2017-09-13] MEDS: ACETAMINOPHEN/HYDROcodone 325 MG/5 MG TAB PO PRN ×2 (10:39→17:31)
[2017-09-13] MEDS: HEPARIN-D5W 25,000 U/250 ML 250 ML IV PRN (12:40)
[2017-09-13] MEDS: DOBUTamine INJ 250 MG in DEXTROSE 5% IN WATER INJ 230 ML IV PRN ×2 (13:42)
[2017-09-13] MEDS: LACTULOSE SYRUP 20 GM/30 ML CUP PO PRN (14:15)
--- NOTE | 2017-09-13 16:16 | PD.CAR.PN ---
CVT Progress Note Subjective/Hospital Course: 66-year-old female who presented to the emergency room on 09/09/2017, brought in emergently with chest pain also radiating down her left arm, possible STEMI Alert with a 12-lead EKG changes, has not had any primary care followup in many years. Pain had been going on for 2 days prior to ER admission, was complaining of shortness of breath, was found to be somewhat tachycardic, tachypneic, hypotensive. She thought initially that it was heartburn-type symptoms. Initial EKG showed ST elevation in V1, V2; however, there were some Q -waves in the precordial leads, with poor R-wave progression. The patient was admitted to the intensive care unit, was started on a heparin drip, nitro drip. She was found to be hypoxic, hypercapnic respiratory failure, history of tobacco abuse. She underwent cardiac catheterization today by Dr. Boyce which showed left main had an ostial 80-90% stenosis, was heavily calcified at the bifurcation of the left anterior descending and left circumflex artery. The LAD was subtotally occluded with a 95% stenosis. The circ had a 50% eccentric stenosis. The right coronary artery was nondominant. EF was approximately 25- 30%, global hypokinesis, mostly pronounced in the anterolateral apical and inferior lateral apical distribution. She also had some stenosis in the left subclavian artery 30%. Due to the high grade left main disease and LAD, she had an intraaortic balloon pump placed. She also underwent right-sided heart catheterization, which showed right atrial pressures of 20, RV pressure is 77/18, pulmonary capillary wedge pressure measured at 47. Cardiac output of 4.3 with an index of 2.3. During the course of the cardiac catheterization, she was also placed on a Levophed drip and a dobutamine drip in addition to the intraaortic balloon pump in the right groin at a 1:1 augmentation. We were consulted to evaluate for coronary artery bypass grafting. The patient also had a 2D echocardiogram, which showed EF of less than 20%, mild mitral regurgitation, trace tricuspid regurgitation. 4/10 breathing better per pt no chest pain, only some back discomfort, IABP right groin 1:1 augmentation remains on dobutamine at 2.5mcq, and levophed at 7 mcq lasix bid , for repeat ECHO in am remains on 8 liter simple mask timing for surgery per Dr Byrd 09/12 EF 30-35% scheduled for surgery on sunday Dr Byrd spoke with pt and daughter off Levo gtt , on heparin and dobutamine IABP 1: 1 right groin , consider weaning dobutamine / and or augmentation 09/13 weaning off Dobutamine, continue IABP 1:1 for surgery in am weaning 02 slowly Objective: GENERAL: A&O x 3 SKIN: Warm and dry. HEAD: Normocephalic. EYES: No scleral icterus. No injection or drainage. NECK: Supple, trachea midline. No JVD or lymphadenopathy. CARDIOVASCULAR: Regular rate and rhythm without murmurs, gallops, or rubs. IABP right groin, + doppler pulses RESPIRATORY: Breath sounds equal bilaterally. No accessory muscle use. diminished in bases GASTROINTESTINAL: Abdomen soft, non-tender, nondistended. MUSCULOSKELETAL: No cyanosis, or edema. BACK: Nontender without obvious deformity. No CVA tenderness. Vital Signs Date Time Temp Pulse Resp B/P (MAP) Pulse Ox O2 Delivery O2 Flow Rate FiO2 09/13/17 15:00 95 09/13/17 15:00 99.6 95 16 145/78 (100) 94 115/44 (67) 09/13/17 15:00 115/44 (107) 09/13/17 14:00 109/44 (110) 09/13/17 13:00 110/43 (100) 09/13/17 12:00 120/48 (113) 09/13/17 11:00 103 09/13/17 11:00 99.9 103 16 144/79 (100) 95 121/51 (74) 09/13/17 11:00 121/51 (113) 09/13/17 10:00 115/47 (105) 09/13/17 09:02 Nasal Cannula 5.00 09/13/17 09:00 111/45 (103) 09/13/17 08:00 115/46 (104) 09/13/17 07:00 96 09/13/17 07:00 99.6 96 16 154/84 (107) 94 120/45 (70) 09/13/17 07:00 94 Nasal Cannula 5.00 09/13/17 07:00 120/45 (109) 09/13/17 06:00 101/38 (97) 09/13/17 06:00 97 154/80 (104) 101/38 (59) 09/13/17 05:00 101/38 (97) 09/13/17 04:00 102/39 (98) 09/13/17 03:00 84 09/13/17 03:00 98.7 100 18 129/85 (100) 97 113/45 (67) 09/13/17 03:00 113/45 (105) 09/13/17 02:00 118/52 (107) 09/13/17 01:00 120/47 (102) 09/13/17 00:00 107/40 (97) 09/12/17 23:00 133/40 (105) 09/12/17 23:00 98.6 100 20 126/81 (96) 96 133/40 (71) 09/12/17 23:00 100 09/12/17 22:13 18 09/12/17 22:00 108/42 (99) 09/12/17 21:00 107/40 (100) 09/12/17 20:37 97 Nasal Cannula 4.00 09/12/17 20:00 108/42 (99) 09/12/17 19:00 96 Nasal Cannula 4.00 09/12/17 19:00 100 09/12/17 19:00 108/39 (97) 09/12/17 19:00 98.7 100 18 119/66 (83) 96 108/39 (62) 09/12/17 18:00 97 143/62 (89) 112/43 (66) 09/12/17 18:00 112/43 (103) 09/12/17 17:00 106/41 (101) Result Diagram: 09/13/17 0355 09/13/17 0355 Telemetry: NSR (1) ST elevation [place] (STEMI) Plan: on ASA no BB , on heparin wean off dobutamine IABP 1:1 for surgery in am (2) Acute respiratory failure with hypoxia and hypercapnia Plan: some improvement with diuresis (3) History of hypertension (4) Tobacco abuse Plan: smoking cessation (5) Congestive heart failure Problem Qualifiers (1) ST elevation [place] (STEMI): Qualified Codes: I21.02 - ST elevation (STEMI) myocardial infarction involving left anterior descending coronary artery (2) Congestive heart failure: Qualified Codes: I50.9 - Heart failure, unspecified Danni Bales Sep 13, 2017 16:16
--- NOTE | 2017-09-13 16:40 | RADRPT ---
EXAM DATE/TIME: 09/13/2017 16:19 [facility] COMPARISON: CT THORAX W/O CONTRAST, September 11, 2017, 21:56. CHEST SINGLE AP, September 12, 2017, 3:56. CHEST SINGLE AP, September 13, 2017, 3:30. INDICATIONS : Evaluate IABP placement MEDICAL HISTORY : None. SURGICAL HISTORY : None. ENCOUNTER: Subsequent ACUITY: 4 - 6 days PAIN SCORE: 0/10 LOCATION: chest FINDINGS: Portable AP view of the chest demonstrates a normal-sized cardiac silhouette with calcification of th e aorta. Right IJ line distal tip is at the cavoatrial junction. The radiopaque markers is seen with the IABP tip is located to the left of midline in the mid descending thoracic aorta at approximately the T8-T9 level. This is stable from the prior chest x-ray. There is mild bibasilar opacity, stable f rom the prior study. No pneumothorax is present. CONCLUSION: 1. Stable position of the IABP tip of which is located at the T8-T9 level in the mid descending thora cic aorta. 2. Stable mild bibasilar opacity likely representing atelectasis with possible small effusions. Matt Perez MD on September 13, 2017 at 16:35 Board Certified Radiologist. This report was verified electronically.
[2017-09-13] MEDS: ATORVASTATIN 40 MG TAB PO SCH (21:46)
[2017-09-13] MEDS ORDERED: METOPROLOL TARTRATE 25 MG TAB PO PRN (22:30)
[2017-09-13] MEDS ORDERED: CHLORHEXIDINE GLUCONATE 2 % 1 PACK (2 CLOTHS) TOPICAL PRN (22:30)
[2017-09-13] MEDS ORDERED: DEXMEDETOMIDINE 200 MCG/50 ML Premix IV PRN (22:30)
[2017-09-13] MEDS ORDERED: SODIUM CHLORID 0.9% 500 ML IV PRN (22:30)
[2017-09-13] MEDS ORDERED: POVIDONE IODINE 5% (ANTISEPSIS KIT) 4 APPLICATIONS EACH NARE PRN (22:30)
[2017-09-13] MEDS ORDERED: LACTATED RINGER'S 1000 ML IV PRN (22:30)
[2017-09-14] VITALS (16 sets, daily range): BP systolic 90–166; BP diastolic 35–79; PULSE 66–92; RESP 12–16; TEMP 97.7–99.3; O2SAT 91–99
[2017-09-14] MEDS: RESP: ALBUTEROL 2.5 MG/IPRATROPIUM 0.5 MG NEB (SCH) INH ×2 (03:04→09:05)
[2017-09-14] MEDS ORDERED: DEXMEDETOMIDINE INJ 200 MCG in SODIUM CHLORIDE 0.9% INJ 50 ML IV PRN ×2 (03:15→11:30)
[2017-09-14] MEDS: CHLORHEXIDINE GLUCONATE 2 % 1 PACK (2 CLOTHS) TOP SCH (04:00)
[2017-09-14 05:09] LABS: AUTOMATED NEUTROPHIL # 5.8 TH/MM3 (1.8-7.7); BASOPHIL # 0.1 TH/MM3 (0-0.2); BASOPHIL % 0.6 % (0.0-2.0); EOSINOPHIL # 0.2 TH/MM3 (0-0.4); EOSINOPHIL % 2.4 % (0.0-4.0); HEMATOCRIT 38.9 % (35.0-46.0); HEMOGLOBIN 13.4 GM/DL (11.6-15.3); LYMPH % 12.8 % (9.0-44.0); MEAN CELL VOLUME 100.3 FL (80.0-100.0); MEAN CORPUSCULAR HEMOGLOBIN 34.4 PG (27.0-34.0); MEAN CORPUSCULAR HGB CONC 34.3 % (32.0-36.0); MONOCYTE # 0.8 TH/MM3 (0-0.9); NEUT % 74.2 % (16.0-70.0); PLATELET COUNT 135 TH/MM3 (150-450); RED BLOOD COUNT 3.88 MIL/MM3 (4.00-5.30); WHITE BLOOD COUNT 7.8 TH/MM3 (4.0-11.0)
[2017-09-14 05:19] LABS: ALBUMIN 2.6 GM/DL (3.4-5.0); AST (GOT) 47 U/L (15-37); BICARBONATE 28.9 MEQ/L (21.0-32.0); BLOOD UREA NITROGEN 14 MG/DL (7-18); CALCIUM 9.6 MG/DL (8.5-10.1); CHLORIDE 96 MEQ/L (98-107); CREATININE 0.77 MG/DL (0.50-1.00); GLOMERULAR FILTRATION RATE 75 ML/MIN (>89); GLUCOSE,RANDOM 120 MG/DL (74-106); MAGNESIUM 2.4 MG/DL (1.5-2.5); SODIUM (NA) 133 MEQ/L (136-145)
[2017-09-14 05:20] LABS: ALT (GPT) 42 U/L (10-53)
[2017-09-14 05:22] LABS: ALKALINE PHOSPHATASE 111 U/L (45-117); TOTAL BILIRUBIN ADULT 0.6 MG/DL (0.2-1.0); TOTAL PROTEIN 7.5 GM/DL (6.4-8.2)
[2017-09-14] MEDS ORDERED: HEPARIN SODIUM - SQ 10,000 UNITS/ML VIAL ONE (06:19)
[2017-09-14] MEDS ORDERED: ceFAZolin INJ 1,000 MG VIAL ONE ×2 (06:19→11:04)
[2017-09-14] MEDS ORDERED: VANCOMYCIN HCL 1000 MG VIAL ONE (06:20)
--- NOTE | 2017-09-14 06:27 | RADRPT ---
EXAM DATE/TIME: 09/14/2017 05:38 [facility] COMPARISON: CHEST SINGLE AP, September 13, 2017, 16:19. INDICATIONS : Congestive heart failure. MEDICAL HISTORY : None. SURGICAL HISTORY : None. ENCOUNTER: Subsequent ACUITY: 1 day PAIN SCORE: Non-responsive. LOCATION: Bilateral chest FINDINGS: Right central line remains in place. Aeration is slightly improved with decrease in confluence of dif fuse bilateral infiltrates. Cardiac contour is grossly stable. CONCLUSION: Improving aeration Matt Weber MD on September 14, 2017 at 6:24 Board Certified Radiologist. This report was verified electronically.
[2017-09-14] MEDS: INSULIN ASPART SUPPLEMENTAL SCALE SQ SCH ×2 (08:00→12:00)
--- NOTE | 2017-09-14 08:52 | RSPPFT ---
DATE OF PROCEDURE: 09/12/17 COMMENTS: Spirometry shows FVC of 1.0 at 35% of predicted, FEV1 of 0.9 at 36%, FEV1/FVC ratio is normal. Flow is decreased at FEF 25, FEF 50, FEF 75 and FEF 25-75. Post-bronchodilator study was not done. Flow volume loops are suggestive of restrictive lung disease. IMPRESSION: 1. Severe restrictive lung disease. 2. Post-bronchodilator study was not done. 3. Patient will need a complete pulmonary function study for further evaluation.
[2017-09-14] MEDS: SODIUM CHLORIDE 0.9% FLUSH 10 ML FLUSH IV FLUSH SCH ×2 (09:00→20:23)
[2017-09-14] MEDS: FAMOTIDINE 20 MG TAB PO SCH ×2 (09:00→20:23)
[2017-09-14] MEDS: POTASSIUM CHLORIDE 10 MEQ CAP PO SCH (09:00)
[2017-09-14] MEDS: DOCUSATE SODIUM 50 MG/SENNA 8.6 MG TAB PO SCH ×2 (09:00→20:23)
--- NOTE | 2017-09-14 10:32 | HHI.FF ---
Face to Face Verification Diagnosis: (1) S/P CABG (coronary artery bypass graft) (2) Tobacco abuse (3) ST elevation MD (STEMI) (4) Congestive heart failure Home Health Nursing Order: Signs/symptoms of disease process Medication education-adverse effect Wound care and dressing changes Nursing assessment with vital signs Instructions: Heart and Vascular Surgery patients *Special attention to sternal dressing Mandatory frequency Assess and evaluation, 4 days in a row The next week 3X week 2 times a week for 4 weeks 1 time a week for 5 weeks Schedule Heart and Vascular patients for full 60 day certification period Initial visit Review Open Heart Surgery Discharge Instructions (Sternal precautions, Activity, Elastic hose, Incision care, Driving, Incentive spirometry, Smoking, Finklea, Work and other) Need Betadine to paint incision Medication reconciliation Importance of follow up care/ check on appointments Make calendar record temperature daily When to call [facility] [place] nurse, review instructions, phone list Incentive Spirometry, demonstration Visit 1- Begin discharge instruction for patient family and/ or caregiver using teach back method- Signs and symptoms of infection Disease characteristics Medicines and side effects Foods and nutrition/ appetite Infection control/ hand washing/ hygiene Visit 2- Continue teaching Discharge instructions- include additional information on smoking cessation , sternal dressing (sternal vac) Visit 3- Continue teaching- Cough and deep breathing, incision monitoring. Choose my plate Visit 4- Continue teaching- Discuss limitations Discuss how they are feeling Discuss progress toward goals Remaining visits- continue teaching and monitoring For any questions please call : Sunday 8am-5pm Heart & Vascular Surgery Office ( Dr. Byrd & Dr. Cano), After Hours / Nights (5pm -8am) Weekends and Holidays Please call [facility] Cardiac Intermediate Care Unit (CIC) Charge Nurse PREVENA Single Use Negative Wound Therapy System Caregiver Instruction Sheet 1. A Prevena dressing system was applied to the chest incision during surgery , to promote wound healing. It works via a suction device (negative pressure wound therapy) to remove low to moderate levels of exudate (drainage) and infectious materials. We recommend that the device stay in place for up to seven days, from day of surgery. 2. Day of Surgery___4/ Day of Removal ____/ 3. The dressing should only be removed by a health chiropractic care. Please arrange removal of device to coincide with Home Health visit and or with Nursing staff at Rehab 4. If skin reddening or irritation of skin occurs, or excessive drainage, please notify the Cardiovascular Surgeons office at [phone]. 5. Light showering is permissible; however the pump should be disconnected and placed in safe location, where it will not get wet. The dressing should not be exposed to direct spray or submerged in water. No bath tub / shower only. Ensure the end of the tubing attached to the dressing is facing down so that water does not enter the top of the tube. 6. To remove Prevena dressing: press purple button to turn off device / remove the suction. Then disconnect the tubing from the pump. The fixation strips should be stretched away from the skin and the dressing lifted at one corner and peeled back until it has been fully removed. 7. After removal, it is ok to shower daily using liquid dial soap and clean wash cloth, rinse and pat dry, and leave incision open to air dry. For any concerns regarding Prevena dressing, and or wounds, please contact Leilani Handy, patient navigator at [phone] or notify the Cardiovascular Surgeons office at [phone]. Incentive spirometry Q1 hr x 10, while awake, also use acapella device hourly whole awake Sternal Breast Bone Precautions: NO pushing or pulling, ( pt must use sternal pillow to support chest with all activities and with coughing ( takes up to 3 months breast bone to heal ) All females to wear sternal bra , launder as needed Daily incision care: ok to shower daily, no tub bath. Wash all incisions with liquid dial soap, clean wash cloth to each site, rinse and pat dry. Observe for any signs of infection, such as drainage which is dark yellow, segura, green or foul smelling. Immediately report to the surgeon any drainage from the chest incision, or legs, and for any abnormal drainage from the chest tube sites. Notify surgeon if any temp >101.5 degrees F. When specialty dressing removed/ or if you do not have one, continue to shower daily as above, then rinse and pat incision dry and paint with betadine daily x 5 days. Allow steri strips to fall off if you have any. Avoid lotions, creams, salves, oils, etc. for the first month Please see attached forms for additional instructions regarding post Open Heart specialty wound vacuum dressings. MACIE or Prevena , Dressing to be removed by Nursing staff on ___09/21/17____ F/U appointment: as per DC instructions: PCP in 2 weeks, CV surgeon 2 weeks, Behavioral Analyst 3-4 weeks For any questions regarding incisions/ dressing / meds / post op care or above Symptoms, Sunday 8am-5pm Heart & Vascular Surgery Office ( Dr. Byrd & Dr. Cano), After Hours / Nights (5pm -8am) Weekends and Holidays Please call [facility] Cardiac Intermediate Care Unit (CIC) Charge Nurse I have seen patient Demi Roche on 09/14/17. My clinical findings support the need for the requested home health care services because: Deconditioned w/ increased weakness I certify that my clinical findings support that this patient is homebound because: Post-op weakness Danni Bales Sep 14, 2017 10:32
[2017-09-14] MEDS ORDERED: IOHEXOL 350 MG/ML 100 ML BTL (for Cath Lab) OTHER ONE (10:45)
[2017-09-14] MEDS ORDERED: DOBUTamine PREMIX DRIP 250 ML IV PRN (11:17)
[2017-09-14] MEDS ORDERED: LACTATED RINGER'S 1000 ML INJ 500 ML IV PRN (11:17)
--- NOTE | 2017-09-14 11:28 | PD.OP ---
cc: Enrique Byrd MD; Manuel Boyce MD Operative Report Date of Surgery: Sep 14, 2017 Preoperative Diagnosis: Postoperative Diagnosis: Procedure: 1. Clampless Urgent Off-pump Coronary Artery Bypass Grafting x 2 with Left Internal Mammary Artery (BEAULIEU) to Left Anterior Descending (LAD), reverse saphenous vein graft to the Obtuse Marginal 2 (OM2) branch of the Left Circumflex artery 2. Left Leg Endoscopic Vein [place] 3. Intraoperative Vein Mapping Surgeon: Enrique Byrd Afternoon Nanny(s): Baldev Ron Operation and Findings: PREPROCEDURE DIAGNOSES 1. Severe Multi Vessel Coronary Artery Disease. 2. Acute Myocardial Infarction (NSTEMI) 3. Severe Left Ventricular Dysfunction (EF 30%) 4. Cardiogenic Shock on Pressor Support 5. Intra-Aortic Balloon Pump Assistance 6. Heavily Calcified Aorta (nearly Porcelain) POSTPROCEDURE DIAGNOSES Same SURGICAL PROCEDURE 1. Clampless Urgent Off-pump Coronary Artery Bypass Grafting x 2 with Left Internal Mammary Artery (BEAULIEU) to Left Anterior Descending (LAD), reverse saphenous vein graft to the Obtuse Marginal 2 (OM2) branch of the Left Circumflex artery 2. Left Leg Endoscopic Vein [place] 3. Intraoperative Vein Mapping SURGEON Enrique Byrd MD PATTERN CLEANER Phoebe Ron, [facility] [place] ANESTHESIA General endotracheal SALES AND MARKETING MANAGER CHRISTIAN Beckman MD PREPARATION ChloraPrep. COUNTS Needle, sponge, and instrument counts were correct. DRAINS Two 32-Occitan mediastinal tubes. COMPLICATIONS None. INDICATIONS FOR PROCEDURE The patient is a 66-year-old presenting with chest pain and AMI. Patient was noted to have multi-vessel coronary artery disease. The patient is being brought to the operating room for surgical revascularization therapy. PROCEDURE Patient was brought to the operating room and placed supine on the OR table. Following the induction of adequate general endotracheal anesthesia and placement of appropriate monitoring devices, intraoperative vein mapping was performed which revealed marginal but usable-caliber conduit in bilateral thighs. The patient was then prepped and draped in standard sterile fashion. Next, 2500 units of intravenous heparin was given. The left greater saphenous vein was harvested endoscopically. This appeared to be a useable-caliber conduit. Simultaneously, a median sternotomy was performed and the left internal mammary artery dissected free off the posterior sternal table. The patient was systemically heparinized and anticoagulation monitored by serial ACT measurements. The internal mammary artery had good pulsatile flow in it and was a good-caliber conduit. The pericardium was then divided in the midline , the cradle created and targets analyzed. There was bloody pericardial effusion. The heart was grossly and globally dilated with severe left ventricular dysfunction by intraoperative ALICIA and visualization. The ascending aorta was nearly porcelain, however, one small spot was identified on the right side of the aorta that appeared to be relatively spared. At this point, all anastomoses were performed in a beating-heart fashion using the Maquet stabilizing system. The left internal mammary artery was anastomosed to the mid LAD (2.25 mm) in an end-to-side fashion using 7-0 Prolene. The LAD was diffusely and heavily calcified through its entire course all the way to the apex. A relatively soft spot was identified in its mid aspect for grafting. Segment of saphenous vein graft was then anastomosed to the OM2 (1.75 mm) in an end-to-side fashion using 7-0 Prolene. The proximal anastomosis was then constructed to the ascending aorta in a running manner using 6-0 Prolene in a clampless fashion using the Heartstring II device. All anastomotic sites were inspected and appeared to be hemostatic and patent. Protamine solution was given. Strict hemostasis was assured. The closure was undertaken. 2 chest tubes were placed. The pericardium was reapproximated in the midline. The sternum was approximated using sternal wires. The muscular and fascial layer were then closed in 3 layers. The endoscopic vein harvest site was closed in 2 layers. The patient tolerated the procedure well and was transferred to CVICU in stable condition. Enrique Byrd MD Sep 14, 2017 11:28
[2017-09-14] MEDS ORDERED: Post-op Orders (for Pharmacy) OTHER ONE (11:30)
[2017-09-14] MEDS ORDERED: CALCIUM CHLORIDE 10% 1 GRAM/10 ML VIAL IV PUSH PRN (11:30)
[2017-09-14] MEDS ORDERED: DOPamine 400 MG/250 ML INJ 250 ML IV PRN (11:30)
[2017-09-14] MEDS ORDERED: CLEVIDIPINE INJ 50 ML IV PRN (11:30)
[2017-09-14] MEDS ORDERED: ACETAMINOPHEN 325 MG TAB PO PRN (11:30)
[2017-09-14] MEDS ORDERED: hydrALAZINE HCL 20 MG/ML VIAL IV PUSH PRN (11:30)
[2017-09-14] MEDS ORDERED: METOPROLOL TARTRATE 5 MG/5 ML VIAL IV PUSH PRN (11:30)
[2017-09-14] MEDS ORDERED: RESP: RACEPINEPHRINE 2.25% 0.5 ML NEB NEB PRN (11:30)
[2017-09-14] MEDS ORDERED: MEPERIDINE HCL 25 MG/ML VIAL IV PUSH PRN (11:30)
[2017-09-14] MEDS ORDERED: ALBUMIN 5% INJ 250 ML IV PRN (11:30)
[2017-09-14] MEDS ORDERED: DEXTROSE 50% IN WATER 50 ML VIAL(D50) IV PUSH PRN (11:30)
[2017-09-14] MEDS ORDERED: CALCIUM CHLORIDE INJ 1 GM in SODIUM CHLORIDE 0.9% INJ 100 ML IV PRN (11:30)
[2017-09-14] MEDS ORDERED: MAGNESIUM SULFATE INJ 2 GM in SODIUM CHLORIDE 0.9% INJ 100 ML IV PRN ×4 (11:30)
[2017-09-14] MEDS ORDERED: ONDANSETRON HCL 4 MG/2 ML VIAL IV PUSH PRN (11:30)
[2017-09-14] MEDS ORDERED: NITROGLYCERIN-D5W 50 MG/250 ML 250 ML IV PRN (11:30)
[2017-09-14] MEDS ORDERED: POTASSIUM CHLOR 20 MEQ PREMIX 100 ML IV PRN ×3 (11:30)
[2017-09-14] MEDS ORDERED: INSULIN REGULAR (IV INFUSION) 100 UNITS in SODIUM CHLORIDE 0.9% INJ 99 ML IV PRN (11:30)
[2017-09-14] MEDS ORDERED: KETOROLAC TROMETHAMINE 30 MG/ML (IVP) VIAL IV PUSH PRN (11:30)
[2017-09-14] MEDS ORDERED: SODIUM BICARBONATE 8.4% SOLN 50 MEQ/50 ML VIAL IV PUSH PRN ×2 (11:30)
[2017-09-14] MEDS ORDERED: ACETAMINOPHEN 650 MG SUPP RECTAL PRN (11:30)
[2017-09-14] MEDS ORDERED: POTASSIUM CHLORIDE 20 MEQ CONTROLLED RELEASE TAB PO PRN ×2 (11:30)
[2017-09-14] MEDS ORDERED: SODIUM CHLORIDE 0.9% FLUSH 10 ML FLUSH IV FLUSH PRN (11:30)
[2017-09-14] MEDS ORDERED: SODIUM CHLOR 0.9% 250 ML INJ 250 ML IV ONE (12:00)
[2017-09-14] MEDS ORDERED: NITROGLYCERIN 50 MG/DEXTROSE 5% SOLN 250 ML BTL IV ONE (12:00)
[2017-09-14] MEDS ORDERED: ePHEDrine/NS 25 MG/5 ML SYRINGE IV ONE (12:00)
[2017-09-14] MEDS ORDERED: NOREPINEPHRINE 4 MG/4 ML AMP IV ONE (12:00)
[2017-09-14] MEDS ORDERED: PROTAMINE SULFATE 250 MG/25 ML VIAL IV ONE (12:00)
[2017-09-14] MEDS ORDERED: LIDOCAINE HCL 2% 100 MG/5 ML SYRINGE IV PUSH ONE (12:00)
[2017-09-14] MEDS ORDERED: VECURONIUM BROMIDE 10 MG VIAL IV ONE (12:00)
[2017-09-14] MEDS ORDERED: SODIUM CHLOR 0.9% 1000 ML INJ 1,000 ML IV ONE (12:00)
[2017-09-14] MEDS ORDERED: LACTATED RINGER'S 1000 ML INJ 1,000 ML IV ONE (12:00)
[2017-09-14] MEDS ORDERED: HEPARIN SODIUM - SQ 10,000 UNITS/ML VIAL OTHER ONE (12:00)
[2017-09-14] MEDS ORDERED: ESMOLOL HCL 100 MG/10 ML VIAL IV ONE (12:00)
[2017-09-14] MEDS ORDERED: PHENYLEPH/NS 1000 MCG/10 ML SYR IV ONE (12:00)
[2017-09-14] MEDS ORDERED: DEXTROSE 5% IN WATER 100 ML BAG IV ONE (12:00)
[2017-09-14] MEDS ORDERED: MAGNESIUM SULFATE 1 GM/2 ML VIAL IV ONE (12:00)
[2017-09-14] MEDS ORDERED: MORPHINE SULFATE 2 MG/ML SYRINGE IV PUSH PRN (12:15)
--- NOTE | 2017-09-14 12:48 | RADRPT ---
EXAM DATE/TIME: 09/14/2017 12:07 [facility] COMPARISON: CHEST SINGLE AP, September 14, 2017, 5:38. INDICATIONS : Post-op CABG. MEDICAL HISTORY : Hypercholesterolemia. SURGICAL HISTORY : Tubal ligation. Appendectomy. Right ovarian cyst. ENCOUNTER: Subsequent ACUITY: 1 day PAIN SCORE: 0/10 LOCATION: Bilateral chest FINDINGS: CT nasogastric tube, multiple chest tubes and central lines in good position. Lungs are clear. The mediastinum appears appropriate. Sternal wires are evident. CONCLUSION: Support apparatus in good position. Lungs are clear. Cuauhtemoc Moreno MD FACR on September 14, 2017 at 12:43 Board Certified Radiologist. This report was verified electronically.
[2017-09-14] MEDS ORDERED: DOBUTamine INJ 250 MG in DEXTROSE 5% IN WATER INJ 230 ML IV PRN ×2 (13:00)
[2017-09-14] MEDS: PHENYLEPHRINE INJ 40 MG in DEXTROSE 5% IN WATE 500 ML INJ 496 ML IV PRN ×2 (13:01)
[2017-09-14] MEDS: ACETAMINOPHEN 1000 MG/100 ML 100 ML IV SCH ×2 (14:28→19:18)
[2017-09-14] MEDS: RESP: ALBUTEROL 2.5 MG/IPRATROPIUM 0.5 MG NEB (SCH) NEB ×2 (14:39→20:29)
--- NOTE | 2017-09-14 17:20 | HHI.CCPN ---
Subjective Remarks/Hospital Course This is a 66-year-old female. Date of admission 09/09/2017.. Past medical history includes hypertension and ongoing tobaccoism. She presents today to the [facility] emergency room emergently for chest pain radiating down her left arm as a possible STEMI alert identified by the paramedics with their twelve-lead EKG. history of tobaccoism prior hypertension which she does not want take any medication. This chest pain with left-sided radiation has been ongoing for the past 48 hours/continuous running a 5 out of 10 on a scale of 1-10 obvious tachypnea upon presentation. Also tachycardic with heart rate in 140s. Initial blood pressure systolic was 90 patient had received 4 81 mg tablets aspirin and 1 0.4 mg sublingual nitro. It was hard to get any further history than this from the patient given her respiratory distress and anxiety. EKG revealed ST elevation in leads V1 and V2 with Q waves. STEMI alert was called. Patient worsening hypoxia and was started on BiPAP. Respiratory rate initially in the 40s currently about 25 and patient "feels better". Was evaluated by Dr. Boyce. Wishes perform heart catheterization 09/10 a.m. Started on aspirin 81 mg daily furosemide 40 mg IV twice daily. Patient's current heparin drip at thousand units an hour. Cannot give nitroglycerin drip due to hypotension. As tolerated metoprolol tartrate 2.5 mg IV every 6 hours 09/10: Central line placed overnight and started on norepinephrine drip at 10 mcg/ min and dobutamine drip at 2.5 mcg/kg/min. Echocardiogram revealed EF less than 20%. Global LV dysfunction. LVH. Pulmonary arterial pressures 53 mmHg. Cardiac catheterization revealed severe stenosis left main. LAD 95% stenosis. Circumflex 50% stenosis. Pulmonary wedge pressure 47. Cardiac index 2.3 L/min/ m. Intra-aortic balloon pump placed. CT surgery consult. Currently resting in bed on nasal cannula in CVICU 09/11: Continues on norepinephrine drip at 9 mcg/min and dobutamine drip at 2.5 mcg/kg/min. Intra-aortic balloon pump augmenting well at 1-1. Currently on 8 L simple mask. Keeping right lower extremity straight for the balloon pump. Minimal chest pain this a.m. Currently undergoing evaluation for CABG per CT surgery. 09/12: Remains positive the same. Remains a norepinephrine drip at 9 mcg/min and dobutamine drip at 2.5 mcg/kg/min. Intra-aortic balloon pump augmenting well at 1-1 ratio. Currently on 4 L nasal cannula. No chest pain this a.m. Plan for 2D echocardiogram this a.m. 09/13: Afebrile. Weaned off norepinephrine drip. Remains on dobutamine drip at 2.5 mcg/kg/min. Denies chest pain. 4-5 L nasal cannula. Subjective 09/14: Status post clamp was urgent off-pump coronary artery bypass grafting 2 with BEAULIEU to LAD, reverse saphenous vein graft to obtuse marginal 2 of the left circumflex artery, left leg endoscopic vein harvest and intraoperative vein mapping by Dr. Byrd. Patient extubated without complication: 5 L. Remains on Dioni-Synephrine at 50 mg/min, insulin drip at 6 units an hour and dexmedetomidine 0.2 mcg/kg/min. Objective Vital Signs Date Time Temp Pulse Resp B/P (MAP) Pulse Ox O2 Delivery O2 Flow Rate FiO2 09/14/17 15:58 130/79 (96) 09/14/17 15:05 97 Nasal Cannula 5 09/14/17 15:05 99 09/14/17 15:00 97.7 71 13 Intake and Output 09/14/17 09/14/17 09/15/17 08:00 16:00 00:00 Intake Total 384 ml 2930 ml Output Total 792 ml 500 ml Balance -408 ml 2430 ml Result Diagram: 09/14/17 0420 09/14/17 0420 Imaging Last Impressions Chest X-Ray 09/14/17 0600 Signed Impressions: Service Date/Time: Thursday, September 14, 2017 05:38 - CONCLUSION: Improving aeration Matt Weber MD Chest CT 09/11/17 0000 Signed Impressions: Service Date/Time: Monday, September 11, 2017 21:56 - CONCLUSION: 1. Consolidation in both lower lobes left greater than right with patchy airspace disease in the upper and middle lobes. 2. Small bilateral pleural effusions. Crow Johnson MD Lower Extremity Ultrasound 09/10/17 0000 Signed Impressions: Service Date/Time: Sunday, September 10, 2017 11:58 - CONCLUSION: Venous mapping as delineated above. Matt Nugent MD Carotid Artery Ultrasound 09/10/17 0000 Signed Impressions: Service Date/Time: Sunday, September 10, 2017 11:02 - CONCLUSION: 1. A significant stenosis is not seen although there is mildly elevated peak systolic velocity in the left internal carotid artery. 2. Flow is not seen in the right vertebral artery. 3. Reversal of flow in diastole seen throughout the exam. This can be seen with cardiac issues including aortic insufficiency. 4. The absence of the right vertebral artery and the mildly elevated peak systolic velocity in the left internal iliac artery could be further evaluated with a CTA of the neck. Matt Nugent MD Objective Remarks GENERAL: 66-year-old female currently on 5 L nasal cannula in no acute distress SKIN: Warm and dry. HEAD: Atraumatic. Normocephalic. EYES: Pupils equal and round about 3 mm bilaterally and reactive. No scleral icterus. No injection or drainage. ENT: No nasal bleeding or discharge. Mucous membranes pink and moist. NECK: Trachea midline. No JVD. CARDIOVASCULAR: RRR. S1, S2. No S4. Augmentation intra-aortic balloon pump appreciated. Mediastinal/left chest tube to -20 cm H2O 160 cm 70 ss output. RESPIRATORY: Coarse crackles appreciated bilateral lower lobes. No wheezing is appreciated GASTROINTESTINAL: Abdomen soft, non-tender, nondistended. Hypoactive bowel sounds appreciated MUSCULOSKELETAL: Extremities trace to 1+ bilateral lower extremity edema. No obvious deformities. Intra-aortic balloon pump in right inguinal region clean dry and intact without hematoma. Dorsalis pedis/posterior tibialis palpable bilaterally NEUROLOGICAL: Awake and alert. No obvious cranial nerve deficits. Motor grossly within normal limits. Five out of 5 muscle strength in the arms and legs. Normal speech. Urinary Catheter: Yes Assessment to: Continue Phipps insert reason: Prolonged Immobilization Vascular Central Line Catheter: Yes Assessment to: Continue Date of Insertion: Sep 10, 2017 Line: Central Venous Catheter Side: Right Location: Internal, Jugular A/P Assessment and Plan Neuro/Psych: Acetaminophen 650 mg p.o. every 6 hours as needed fever Ofirmev 1 g IV every 6 hours [address] surgery Hydrocodone/acetaminophen 5/325 1 tablet every 4 hours as needed pain 1 through 5 Fentanyl 25 mcg every hour as needed breakthrough pain CV: Postop day #0 clamp was urgent off-pump coronary artery bypass graft 2 with BEAULIEU to LAD, reverse saphenous vein graft to obtuse marginal 2 branch of the left circumflex with left leg endoscopic vein harvesting intraoperative vein mapping by Dr Carson Fritz STEMI Hypotension History of hypertension Elevated CPK/troponin of greater than 40 Triglyceridemia Hyperlipidemia Received 324 mg of aspirin, 0.4 mg nitroglycerin in ED. Scheduled for aspirin 81 mg p.o. daily Scheduled for clopidogrel 75 mg mouth daily Currently on phenylephrine drip at 50 mcg/min Echocardiogram revealed EF less than 20%. LV dysfunction. LV hypertrophy. PAP 53 mmHg. Repeat echocardiogram 09/[address] surgery recommendation revealed EF 30-35%. Continue atorvastatin 40 mg by mouth at night for dyslipidemia Minor catheterization revealed RAD 20 mmHg. RVSP 77/18 mmHg. PAP 66/37 mmHg. Pulmonary capillary wedge pressure 47 mmHg. Cardiac output 4.3 L/min. Cardiac index 2.3 L/min/m. Left main 89% stenosis. LAD 95% stenosis. Left circumflex 50% stenosis. Intra-aortic balloon pump placed augmented at 1-1. Plan to wean in a.m. to 1-2 Carotid Dopplers lack of flow in the right vertebral. Recommended CTA if indicated. High velocities left internal carotid artery. Resp: Acute hypoxic hypercapnic respiratory failure Ongoing tobaccoism Currently on nasal cannula/simple mask to maintain saturations greater than equal to 92% Incentive spirometry while awake Albuterol/ipratropium aerosols every 6 hours with albuterol aerosols every 2 hours as needed for dyspnea Chest x-ray revealed adequate positioning of right IJ CVL. Repeat chest x-ray in a.m. 09/15 Tobacco's educational self-education cessation booklet provided when clinically stable CT thorax 09/11 revealed small bilateral pleural effusions. Patchy infiltrates throughout bilateral lung milan GI: Elevated AST Hypoalbuminemia Heart healthy diet per CT surgery Famotidine for GI prophylaxis Docusate sodium/senna 1 tablet twice daily for bowel regimen : Phipps catheter if indicated for accurate I's and O's in a critical patient receiving diuretics Endo: Mild stress hyperglycemia Sliding scale insulin with Accu-Cheks before meals/at bedtime to maintain euglycemia/low regimen of NovoLog Noted hemoglobin A1c 5.2 and TSH 0.99 Renal: Creatinine currently within normal limits Monitor urine output while on diuretics Accurate I's and O's Heme: Thrombocytopenia Monitor CBC daily. Follow trends Currently on heparin drip at 1600 units an hour ID: Monitor for signs and symptoms of infection MSK: PT evaluate and treat FEN: Hyponatremia Follow-up on BMP in a.m. especially since on furosemide Electrolyte CT surgery protocol initiated Scheduled 10 mEq potassium chloride p.o. twice daily while on furosemide currently on hold Access Right IJ CVL day #5 placed 09/10 Right radial arterial line day #0 place 09/14 in OR Left subclavian Cordis with dual-lumen day #0 placed in OR 09/14 Prophylaxis -GI -famotidine -DVT -SCD anticoagulation per CT surgery Critical Care: The total critical care time was 35 minutes. Time to perform other separately billable procedures was not included in the critical care time. Prasanth Nix MD Sep 14, 2017 17:20
[2017-09-14] MEDS: ATORVASTATIN 40 MG TAB PO SCH (20:23)
[2017-09-15] VITALS (10 sets, daily range): BP systolic 14–155; BP diastolic 40–79; PULSE 79–103; RESP 14–22; TEMP 97.4–99; O2SAT 93–99
[2017-09-15] MEDS: PHENYLEPHRINE INJ 40 MG in DEXTROSE 5% IN WATE 500 ML INJ 496 ML IV PRN ×2 (00:56)
[2017-09-15] MEDS: ACETAMINOPHEN 1000 MG/100 ML 100 ML IV SCH ×2 (00:57→05:59)
[2017-09-15] MEDS: RESP: ALBUTEROL 2.5 MG/IPRATROPIUM 0.5 MG NEB (SCH) NEB ×4 (03:14→23:52)
[2017-09-15 05:09] LABS: HEMATOCRIT 28.5 % (35.0-46.0); MEAN CELL VOLUME 99.7 FL (80.0-100.0); MEAN CORPUSCULAR HEMOGLOBIN 34.9 PG (27.0-34.0); MEAN PLATELET VOLUME 9.2 FL (7.0-11.0); PLATELET COUNT 105 TH/MM3 (150-450); RED BLOOD COUNT 2.86 MIL/MM3 (4.00-5.30); RED CELL DISTRIBUTION WIDTH 13.3 % (11.6-17.2); WHITE BLOOD COUNT 9.4 TH/MM3 (4.0-11.0)
[2017-09-15 05:38] LABS: BICARBONATE 24.7 MEQ/L (21.0-32.0); CALCIUM 8.3 MG/DL (8.5-10.1); CREATININE 0.49 MG/DL (0.50-1.00); MAGNESIUM 2.1 MG/DL (1.5-2.5)
--- NOTE | 2017-09-15 05:51 | RADRPT ---
EXAM DATE/TIME: 09/15/2017 04:08 [facility] COMPARISON: CHEST SINGLE AP, September 14, 2017, 12:07. INDICATIONS : Shortness of breath, possible pulmonary disease. MEDICAL HISTORY : Hypercholesterolemia. SURGICAL HISTORY : Tubal ligation. Appendectomy. CABG. ENCOUNTER: Subsequent ACUITY: 4 - 6 days PAIN SCORE: Non-responsive. LOCATION: Bilateral chest FINDINGS: The cardiac silhouette is enlarged in transverse diameter. There is prominence of the central pulmona ry vasculature with indistinct vascular margins compatible with vascular congestion but no evidence o f overt failure. A left chest tube is in place. There is no evidence of pneumothorax. There is subse gmental atelectasis in the both bases. CONCLUSION: 1. Cardiomegaly and findings of vascular congestion without overt failure. There has been no signific ant change when compared to the prior exam. Ihsan Nayak MD on September 15, 2017 at 5:49 Board Certified Radiologist. This report was verified electronically.
--- NOTE | 2017-09-15 09:00 | HHI.CCPN ---
Subjective Remarks/Hospital Course This is a 66-year-old female. Date of admission 09/09/2017.. Past medical history includes hypertension and ongoing tobaccoism. She presents today to the [facility] emergency room emergently for chest pain radiating down her left arm as a possible STEMI alert identified by the paramedics with their twelve-lead EKG. history of tobaccoism prior hypertension which she does not want take any medication. This chest pain with left-sided radiation has been ongoing for the past 48 hours/continuous running a 5 out of 10 on a scale of 1-10 obvious tachypnea upon presentation. Also tachycardic with heart rate in 140s. Initial blood pressure systolic was 90 patient had received 4 81 mg tablets aspirin and 1 0.4 mg sublingual nitro. It was hard to get any further history than this from the patient given her respiratory distress and anxiety. EKG revealed ST elevation in leads V1 and V2 with Q waves. STEMI alert was called. Patient worsening hypoxia and was started on BiPAP. Respiratory rate initially in the 40s currently about 25 and patient "feels better". Was evaluated by Dr. Boyce. Wishes perform heart catheterization 09/10 a.m. Started on aspirin 81 mg daily furosemide 40 mg IV twice daily. Patient's current heparin drip at thousand units an hour. Cannot give nitroglycerin drip due to hypotension. As tolerated metoprolol tartrate 2.5 mg IV every 6 hours 09/10: Central line placed overnight and started on norepinephrine drip at 10 mcg/ min and dobutamine drip at 2.5 mcg/kg/min. Echocardiogram revealed EF less than 20%. Global LV dysfunction. LVH. Pulmonary arterial pressures 53 mmHg. Cardiac catheterization revealed severe stenosis left main. LAD 95% stenosis. Circumflex 50% stenosis. Pulmonary wedge pressure 47. Cardiac index 2.3 L/min/ m. Intra-aortic balloon pump placed. CT surgery consult. Currently resting in bed on nasal cannula in CVICU 09/11: Continues on norepinephrine drip at 9 mcg/min and dobutamine drip at 2.5 mcg/kg/min. Intra-aortic balloon pump augmenting well at 1-1. Currently on 8 L simple mask. Keeping right lower extremity straight for the balloon pump. Minimal chest pain this a.m. Currently undergoing evaluation for CABG per CT surgery. 09/12: Remains positive the same. Remains a norepinephrine drip at 9 mcg/min and dobutamine drip at 2.5 mcg/kg/min. Intra-aortic balloon pump augmenting well at 1-1 ratio. Currently on 4 L nasal cannula. No chest pain this a.m. Plan for 2D echocardiogram this a.m. 09/13: Afebrile. Weaned off norepinephrine drip. Remains on dobutamine drip at 2.5 mcg/kg/min. Denies chest pain. 4-5 L nasal cannula. 09/14: Status post clamp was urgent off-pump coronary artery bypass grafting 2 with BEAULIEU to LAD, reverse saphenous vein graft to obtuse marginal 2 of the left circumflex artery, left leg endoscopic vein harvest and intraoperative vein mapping by Dr. Byrd. Patient extubated without complication: 5 L. Remains on Dioni-Synephrine at 50 mcg/min, insulin drip at 6 units an hour and dexmedetomidine 0.2 mcg/kg/min. Subjective 09/15: Afebrile. Currently on 2 L nasal cannula. -200 cc serosanguineous from chest tube since OR. Intra aortic balloon pump currently at 1-2 ratio. Wants to get out of bed to chair Objective Vital Signs Date Time Temp Pulse Resp B/P (MAP) Pulse Ox O2 Delivery O2 Flow Rate FiO2 09/15/17 07:00 125/47 (100) 09/15/17 03:17 86 09/15/17 03:17 95 Nasal Cannula 2.00 09/15/17 03:17 99.0 17 09/14/17 15:05 99 Intake and Output 09/15/17 09/15/17 09/16/17 08:00 16:00 00:00 Intake Total 1042 ml Output Total 430 ml Balance 612 ml Result Diagram: 09/15/17 0440 09/15/17 0440 Imaging Last Impressions Chest X-Ray 09/15/17 0500 Signed Impressions: Service Date/Time: Friday, September 15, 2017 04:08 - CONCLUSION: 1. Cardiomegaly and findings of vascular congestion without overt failure. There has been no significant change when compared to the prior exam. Ihsan Nayak MD Chest CT 09/11/17 0000 Signed Impressions: Service Date/Time: Monday, September 11, 2017 21:56 - CONCLUSION: 1. Consolidation in both lower lobes left greater than right with patchy airspace disease in the upper and middle lobes. 2. Small bilateral pleural effusions. Crow Johnson MD Lower Extremity Ultrasound 09/10/17 0000 Signed Impressions: Service Date/Time: Sunday, September 10, 2017 11:58 - CONCLUSION: Venous mapping as delineated above. Matt Nugent MD Carotid Artery Ultrasound 09/10/17 0000 Signed Impressions: Service Date/Time: Sunday, September 10, 2017 11:02 - CONCLUSION: 1. A significant stenosis is not seen although there is mildly elevated peak systolic velocity in the left internal carotid artery. 2. Flow is not seen in the right vertebral artery. 3. Reversal of flow in diastole seen throughout the exam. This can be seen with cardiac issues including aortic insufficiency. 4. The absence of the right vertebral artery and the mildly elevated peak systolic velocity in the left internal iliac artery could be further evaluated with a CTA of the neck. Matt Nugent MD Objective Remarks GENERAL: 66-year-old female currently on 5 L nasal cannula in no acute distress SKIN: Warm and dry. HEAD: Atraumatic. Normocephalic. EYES: Pupils equal and round about 3 mm bilaterally and reactive. No scleral icterus. No injection or drainage. ENT: No nasal bleeding or discharge. Mucous membranes pink and moist. NECK: Trachea midline. No JVD. CARDIOVASCULAR: RRR. S1, S2. No S4. Augmentation intra-aortic balloon pump appreciated. Mediastinal/left chest tube to -20 cm H2O 200 cm ss output. RESPIRATORY: Coarse crackles appreciated bilateral lower lobes. No wheezing is appreciated GASTROINTESTINAL: Abdomen soft, non-tender, nondistended. Hypoactive bowel sounds appreciated MUSCULOSKELETAL: Extremities trace to 1+ bilateral lower extremity edema. No obvious deformities. Intra-aortic balloon pump in right inguinal region clean dry and intact without hematoma. Dorsalis pedis/posterior tibialis palpable bilaterally. GILDA hose on right lower extremity only. NEUROLOGICAL: Awake and alert. No obvious cranial nerve deficits. Motor grossly within normal limits. Five out of 5 muscle strength in the arms and legs. Normal speech. Urinary Catheter: Yes Assessment to: Continue Phipps insert reason: ICU Pt Getting Diuretics Vascular Central Line Catheter: Yes Assessment to: Continue Date of Insertion: Sep 10, 2017 Line: Central Venous Catheter Side: Right Location: Internal, Jugular A/P Assessment and Plan Neuro/Psych: Acetaminophen 650 mg p.o. every 6 hours as needed fever Ofirmev 1 g IV every 6 hours [address] surgery Hydrocodone/acetaminophen 5/325 1 tablet every 4 hours as needed pain 1 through 5 Fentanyl 25 mcg every hour as needed breakthrough pain CV: Postop day #1 clampless urgent off-pump coronary artery bypass graft 2 with BEAULIEU to LAD, reverse saphenous vein graft to obtuse marginal 2 branch of the left circumflex with left leg endoscopic vein harvesting intraoperative vein mapping by Dr Byrd Anterior STEMI Hypotension History of hypertension Elevated CPK/troponin of greater than 40 Triglyceridemia Hyperlipidemia Received 324 mg of aspirin, 0.4 mg nitroglycerin in ED. Scheduled for aspirin 81 mg p.o. daily Scheduled for clopidogrel 75 mg mouth daily Currently on phenylephrine drip at 40 mcg/min to maintain mean arterial pressure greater than 65 Echocardiogram revealed EF less than 20%. LV dysfunction. LV hypertrophy. PAP 53 mmHg. Repeat echocardiogram 09/[address] surgery recommendation revealed EF 30-35%. Continue atorvastatin 40 mg by mouth at night for dyslipidemia Minor catheterization revealed RAD 20 mmHg. RVSP 77/18 mmHg. PAP 66/37 mmHg. Pulmonary capillary wedge pressure 47 mmHg. Cardiac output 4.3 L/min. Cardiac index 2.3 L/min/m. Left main 89% stenosis. LAD 95% stenosis. Left circumflex 50% stenosis. Intra-aortic balloon pump placed augmented at 1-1. Plan to wean in a.m. to 1-2 Carotid Dopplers lack of flow in the right vertebral. Recommended CTA if indicated. High velocities left internal carotid artery. Resp: Acute hypoxic hypercapnic respiratory failure Ongoing tobaccoism Currently on nasal cannula/simple mask to maintain saturations greater than equal to 92% Incentive spirometry while awake Albuterol/ipratropium aerosols every 6 hours with albuterol/ipratropium aerosols every 2 hours as needed for dyspnea Chest x-ray revealed adequate positioning of right IJ CVL. Repeat chest x-ray in a.m. 09/15 Tobacco's educational self-education cessation booklet provided when clinically stable CT thorax 09/11 revealed small bilateral pleural effusions. Patchy infiltrates throughout bilateral lung milan GI: Elevated AST Hypoalbuminemia Heart healthy diet per CT surgery Famotidine 20 mg twice daily for GI prophylaxis Docusate sodium/senna 1 tablet twice daily for bowel regimen : Phipps catheter if indicated for accurate I's and O's in a critical patient receiving diuretics Endo: Mild stress hyperglycemia Sliding scale insulin with Accu-Cheks before meals/at bedtime to maintain euglycemia/low regimen of NovoLog Noted hemoglobin A1c 5.2 and TSH 0.99 Renal: Creatinine currently within normal limits Monitor urine output while on diuretics Accurate I's and O's Heme: Normocytic anemia Thrombocytopenia Monitor CBC daily. Follow trends Currently on heparin drip at 1600 units an hour ID: Monitor for signs and symptoms of infection MSK: PT evaluate and treat FEN: Hyponatremia Follow-up on BMP in a.m. especially since on furosemide Electrolyte CT surgery protocol initiated Scheduled 10 mEq potassium chloride p.o. twice daily while on furosemide currently on hold Access Right IJ CVL day #6 placed 09/10 Right radial arterial line day #2 place 09/14 in OR Left subclavian Cordis with dual-lumen day #2 placed in OR 09/14 Prophylaxis -GI -famotidine -DVT -SCD anticoagulation per CT surgery Level 2 follow-up Prasanth Nix MD Sep 15, 2017 09:00
[2017-09-15] MEDS: ceFAZolin 2 GM/DEX PREMIX 50 ML IV SCH ×2 (09:42→17:36)
[2017-09-15] MEDS: CLOPIDOGREL 75 MG TAB PO SCH (09:43)
[2017-09-15] MEDS: FAMOTIDINE 20 MG TAB PO SCH ×2 (09:43→21:19)
[2017-09-15] MEDS: ASPIRIN 81 MG CHEW TAB PO SCH (09:43)
[2017-09-15] MEDS: SODIUM CHLORIDE 0.9% FLUSH 10 ML FLUSH IV FLUSH SCH ×2 (09:43→21:20)
[2017-09-15] MEDS: DOCUSATE SODIUM 50 MG/SENNA 8.6 MG TAB PO SCH ×2 (09:43→21:20)
--- NOTE | 2017-09-15 10:20 | PD.CAR.PN ---
CVT Progress Note Subjective/Hospital Course: 66-year-old female who presented to the emergency room on 09/09/2017, brought in emergently with chest pain also radiating down her left arm, possible STEMI Alert with a 12-lead EKG changes, has not had any primary care followup in many years. Pain had been going on for 2 days prior to ER admission, was complaining of shortness of breath, was found to be somewhat tachycardic, tachypneic, hypotensive. She thought initially that it was heartburn-type symptoms. Initial EKG showed ST elevation in V1, V2; however, there were some Q -waves in the precordial leads, with poor R-wave progression. The patient was admitted to the intensive care unit, was started on a heparin drip, nitro drip. She was found to be hypoxic, hypercapnic respiratory failure, history of tobacco abuse. She underwent cardiac catheterization today by Dr. Boyce which showed left main had an ostial 80-90% stenosis, was heavily calcified at the bifurcation of the left anterior descending and left circumflex artery. The LAD was subtotally occluded with a 95% stenosis. The circ had a 50% eccentric stenosis. The right coronary artery was nondominant. EF was approximately 25- 30%, global hypokinesis, mostly pronounced in the anterolateral apical and inferior lateral apical distribution. She also had some stenosis in the left subclavian artery 30%. Due to the high grade left main disease and LAD, she had an intraaortic balloon pump placed. She also underwent right-sided heart catheterization, which showed right atrial pressures of 20, RV pressure is 77/18, pulmonary capillary wedge pressure measured at 47. Cardiac output of 4.3 with an index of 2.3. During the course of the cardiac catheterization, she was also placed on a Levophed drip and a dobutamine drip in addition to the intraaortic balloon pump in the right groin at a 1:1 augmentation. We were consulted to evaluate for coronary artery bypass grafting. The patient also had a 2D echocardiogram, which showed EF of less than 20%, mild mitral regurgitation, trace tricuspid regurgitation. 4/10 breathing better per pt no chest pain, only some back discomfort, IABP right groin 1:1 augmentation remains on dobutamine at 2.5mcq, and levophed at 7 mcq lasix bid , for repeat ECHO in am remains on 8 liter simple mask timing for surgery per Dr Byrd 09/12 EF 30-35% scheduled for surgery on sunday Dr Byrd spoke with pt and daughter off Levo gtt , on heparin and dobutamine IABP 1: 1 right groin , consider weaning dobutamine / and or augmentation 09/13 weaning off Dobutamine, continue IABP 1:1 for surgery in am weaning 02 slowly 09/14 SURGICAL PROCEDURE 1. Clampless Urgent Off-pump Coronary Artery Bypass Grafting x 2 with Left Internal Mammary Artery (BEAULIEU) to Left Anterior Descending (LAD), reverse saphenous vein graft to the Obtuse Marginal 2 (OM2) branch of the Left Circumflex artery 2. Left Leg Endoscopic Vein Garland 3. Intraoperative Vein Mapping 09/15 Doing well. Hemodynamically stable. D/C IABP today Pulmonary Toiletry Transfer telemetry tomorrow Objective: Vital Signs Date Time Temp Pulse Resp B/P (MAP) Pulse Ox O2 Delivery O2 Flow Rate FiO2 09/15/17 08:00 155/69 (97) 104/40 (61) 09/15/17 07:00 79 09/15/17 07:00 94 Nasal Cannula 2.00 09/15/17 07:00 125/47 (100) 09/15/17 06:00 123/45 (100) 09/15/17 05:00 136/42 (97) 09/15/17 04:08 115/41 (97) 09/15/17 03:17 86 09/15/17 03:17 107/50 (95) 09/15/17 03:17 95 Nasal Cannula 2.00 09/15/17 03:17 99.0 82 17 144/71 (95) 96 107/50 (69) 09/15/17 02:00 107/40 (95) 09/15/17 01:00 126/43 (106) 09/15/17 00:56 92 122/44 09/15/17 00:11 107/40 (104) 09/14/17 23:13 96 Nasal Cannula 2.00 09/14/17 23:13 99.2 78 16 141/70 (93) 96 100/55 (70) 09/14/17 23:13 80 09/14/17 23:00 100/35 (92) 09/14/17 22:00 93/38 (89) 09/14/17 21:00 108/38 (94) 09/14/17 20:12 137/70 (92) 90/35 (53) 09/14/17 20:00 89/34 (82) 09/14/17 19:21 99.0 69 16 137/70 (92) 93 90/55 (67) 09/14/17 19:21 93 Nasal Cannula 2.00 09/14/17 19:00 69 09/14/17 19:00 90/35 (83) 09/14/17 18:00 106/45 (97) 09/14/17 17:00 94/35 (85) 09/14/17 16:00 100/35 (92) 09/14/17 15:58 130/79 (96) 09/14/17 15:05 97 Nasal Cannula 5 09/14/17 15:05 Nasal Cannula 5.00 99 09/14/17 15:05 50 09/14/17 15:05 97 Nasal Cannula 5.00 09/14/17 15:00 90/35 (85) 09/14/17 15:00 97.7 71 13 116/58 (77) 98 90/64 (73) 09/14/17 15:00 66 09/14/17 14:47 98.6 09/14/17 14:30 50 09/14/17 14:30 99 50 09/14/17 14:00 61 116/58 09/14/17 14:00 74/28 (71) 09/14/17 13:21 98 50 09/14/17 13:01 78 112/45 09/14/17 13:00 85/51 (70) 09/14/17 12:00 79 09/14/17 12:00 75 09/14/17 12:00 142/53 (130) 09/14/17 11:51 99 60 09/14/17 11:45 99.3 87 12 166/79 (108) 91 94/64 (74) 09/14/17 11:44 98.6 Labs: Laboratory Tests Test 09/15/17 04:40 White Blood Count 9.4 TH/MM3 (4.0-11.0) Red Blood Count 2.86 MIL/MM3 (4.00-5.30) Hemoglobin 10.0 GM/DL (11.6-15.3) Hematocrit 28.5 % (35.0-46.0) Mean Corpuscular Volume 99.7 FL (80.0-100.0) Mean Corpuscular Hemoglobin 34.9 PG (27.0-34.0) Mean Corpuscular Hemoglobin Concent 35.0 % (32.0-36.0) Red Cell Distribution Width 13.3 % (11.6-17.2) Platelet Count 105 TH/MM3 (150-450) Mean Platelet Volume 9.2 FL (7.0-11.0) Blood Urea Nitrogen 11 MG/DL (7-18) Creatinine 0.49 MG/DL (0.50-1.00) Random Glucose 101 MG/DL (74-106) Calcium Level 8.3 MG/DL (8.5-10.1) Magnesium Level 2.1 MG/DL (1.5-2.5) Sodium Level 137 MEQ/L (136-145) Potassium Level 4.0 MEQ/L (3.5-5.1) Chloride Level 104 MEQ/L (98-107) Carbon Dioxide Level 24.7 MEQ/L (21.0-32.0) Anion Gap 8 MEQ/L (5-15) Estimat Glomerular Filtration Rate 126 ML/MIN (>89) Result Diagram: 09/15/1743909/15/17439 (1) ST elevation [place] (STEMI) Plan: on ASA no BB , on heparin wean off dobutamine IABP 1:1 for surgery in am (2) Acute respiratory failure with hypoxia and hypercapnia Plan: some improvement with diuresis (3) History of hypertension (4) Tobacco abuse Plan: smoking cessation (5) Congestive heart failure Problem Qualifiers (1) ST elevation [place] (STEMI): Qualified Codes: I21.02 - ST elevation (STEMI) myocardial infarction involving left anterior descending coronary artery (2) Congestive heart failure: Qualified Codes: I50.9 - Heart failure, unspecified Enrique Byrd MD Sep 15, 2017 10:20
[2017-09-15] MEDS ORDERED: PILL SPLITTER OTHER PRN (11:15)
[2017-09-15] MEDS: METOPROLOL TARTRATE 25 MG TAB PO SCH ×2 (11:36→21:19)
[2017-09-15] MEDS ORDERED: GLUCAGON 1 MG/ML VIAL IV PUSH PRN (13:00)
[2017-09-15] MEDS ORDERED: SOD PHOSPHATE/SOD BIPHOSPHATE (ADULT) ENEMA 133ML RECTAL PRN (13:00)
[2017-09-15] MEDS ORDERED: BISACODYL 10 MG SUPP RECTAL PRN (13:00)
[2017-09-15] MEDS: MAGNESIUM HYDROXIDE SUSP 30 ML CUP PO SCH (13:00)
[2017-09-15] MEDS ORDERED: DEXTROSE 50% IN WATER 50 ML VIAL(D50) IV PUSH PRN (13:00)
[2017-09-15] MEDS: INSULIN ASPART SUPPLEMENTAL SCALE SQ SCH ×3 (14:00→22:00)
--- NOTE | 2017-09-15 16:52 | EKG ---
Date Performed: 09/15/2017 Time Performed: 05:02:24 PTAGE: 66 years EKG: Sinus rhythm Possible septal infarct - age undetermined Lateral T wave changes may be due to myocardial ischemia Low QRS voltages in precordial leads Abnormal ECG Compared to PREVIOUS TRACING , there is an anterolateral ST depression, concerning for a recent ische royer event. Clinical correlation suggested. PREVIOUS TRACIN09/09/2017 10.34 DOCTOR: Radha Shaw Interpretating Date/Time 09/15/2017 16:49:36
[2017-09-15] MEDS: ATORVASTATIN 40 MG TAB PO SCH (21:19)
[2017-09-15] MEDS: SENNOSIDES 8.6 MG TAB PO SCH (21:20)
[2017-09-15] MEDS: DOCUSATE SODIUM 100 MG CAP PO SCH (21:20)
[2017-09-15] MEDS: RESP: ALBUTEROL 2.5 MG/IPRATROPIUM 0.5 MG NEB (PRN) NEB (23:54)
[2017-09-16] VITALS (8 sets, daily range): BP systolic 123–133; BP diastolic 53–63; PULSE 93–103; RESP 16–18; TEMP 97.1–98.7; O2SAT 91–98
[2017-09-16] MEDS: ceFAZolin 2 GM/DEX PREMIX 50 ML IV SCH ×3 (01:45→18:43)
[2017-09-16] MEDS: INSULIN ASPART SUPPLEMENTAL SCALE SQ SCH ×3 (02:00→10:50)
[2017-09-16 05:22] LABS: HEMATOCRIT 27.6 % (35.0-46.0); HEMOGLOBIN 9.7 GM/DL (11.6-15.3); MEAN CELL VOLUME 99.2 FL (80.0-100.0); MEAN CORPUSCULAR HEMOGLOBIN 34.8 PG (27.0-34.0); MEAN CORPUSCULAR HGB CONC 35.1 % (32.0-36.0); MEAN PLATELET VOLUME 9.6 FL (7.0-11.0); PLATELET COUNT 140 TH/MM3 (150-450); RED BLOOD COUNT 2.79 MIL/MM3 (4.00-5.30); RED CELL DISTRIBUTION WIDTH 13.3 % (11.6-17.2); WHITE BLOOD COUNT 10.7 TH/MM3 (4.0-11.0)
[2017-09-16 05:43] LABS: BICARBONATE 26.3 MEQ/L (21.0-32.0); CALCIUM 8.8 MG/DL (8.5-10.1); CREATININE 0.59 MG/DL (0.50-1.00); PHOSPHORUS 3.1 MG/DL (2.5-4.9)
--- NOTE | 2017-09-16 07:44 | RADRPT ---
EXAM DATE/TIME: 09/16/2017 07:07 [facility] COMPARISON: CHEST SINGLE AP, September 15, 2017, 4:08. INDICATIONS : Post CABG MEDICAL HISTORY : Hypercholesterolemia. SURGICAL HISTORY : Tubal ligation. Appendectomy. CABG. ENCOUNTER: Subsequent ACUITY: 4 - 6 days PAIN SCORE: 0/10 LOCATION: chest FINDINGS: Left central line remains. Mediastinal drain and left chest tube remain. Mild compensated cardiomeg maria fernanda without pneumothorax or failure. CONCLUSION: Stable chest. Cuauhtemoc Moreno MD FACR on September 16, 2017 at 7:42 Board Certified Radiologist. This report was verified electronically.
[2017-09-16] MEDS: RESP: ALBUTEROL 2.5 MG/IPRATROPIUM 0.5 MG NEB (SCH) NEB ×3 (09:00→20:07)
[2017-09-16] MEDS: POLYETHYLENE GLYCOL 17 GM PKG PO SCH (09:00)
[2017-09-16 09:17] LABS: BASOPHIL # 0.1 TH/MM3 (0-0.2); BASOPHIL % 0.6 % (0.0-2.0); EOSINOPHIL # 0.1 TH/MM3 (0-0.4); EOSINOPHIL % 1.1 % (0.0-4.0); HEMATOCRIT 29.3 % (35.0-46.0); HEMOGLOBIN 9.9 GM/DL (11.6-15.3); LYMPH % 10.7 % (9.0-44.0); LYMPHOCYTE # 1.3 TH/MM3 (1.0-4.8); MEAN CELL VOLUME 98.6 FL (80.0-100.0); MEAN CORPUSCULAR HEMOGLOBIN 33.4 PG (27.0-34.0); MEAN CORPUSCULAR HGB CONC 33.9 % (32.0-36.0); MEAN PLATELET VOLUME 9.2 FL (7.0-11.0); MONO % 11.7 % (0.0-8.0); MONOCYTE # 1.4 TH/MM3 (0-0.9); NEUT % 75.9 % (16.0-70.0); PLATELET COUNT 178 TH/MM3 (150-450); RED BLOOD COUNT 2.97 MIL/MM3 (4.00-5.30); RED CELL DISTRIBUTION WIDTH 13.5 % (11.6-17.2); WHITE BLOOD COUNT 11.8 TH/MM3 (4.0-11.0)
[2017-09-16 09:29] LABS: PROTHROMBIN TIME - PATIENT 10.2 SEC (9.8-11.6)
--- NOTE | 2017-09-16 09:47 | HHI.CCPN ---
Subjective Remarks/Hospital Course This is a 66-year-old female. Date of admission 09/09/2017.. Past medical history includes hypertension and ongoing tobaccoism. She presents today to the [facility] emergency room emergently for chest pain radiating down her left arm as a possible STEMI alert identified by the paramedics with their twelve-lead EKG. history of tobaccoism prior hypertension which she does not want take any medication. This chest pain with left-sided radiation has been ongoing for the past 48 hours/continuous running a 5 out of 10 on a scale of 1-10 obvious tachypnea upon presentation. Also tachycardic with heart rate in 140s. Initial blood pressure systolic was 90 patient had received 4 81 mg tablets aspirin and 1 0.4 mg sublingual nitro. It was hard to get any further history than this from the patient given her respiratory distress and anxiety. EKG revealed ST elevation in leads V1 and V2 with Q waves. STEMI alert was called. Patient worsening hypoxia and was started on BiPAP. Respiratory rate initially in the 40s currently about 25 and patient "feels better". Was evaluated by Dr. Boyce. Wishes perform heart catheterization 09/10 a.m. Started on aspirin 81 mg daily furosemide 40 mg IV twice daily. Patient's current heparin drip at thousand units an hour. Cannot give nitroglycerin drip due to hypotension. As tolerated metoprolol tartrate 2.5 mg IV every 6 hours 09/10: Central line placed overnight and started on norepinephrine drip at 10 mcg/ min and dobutamine drip at 2.5 mcg/kg/min. Echocardiogram revealed EF less than 20%. Global LV dysfunction. LVH. Pulmonary arterial pressures 53 mmHg. Cardiac catheterization revealed severe stenosis left main. LAD 95% stenosis. Circumflex 50% stenosis. Pulmonary wedge pressure 47. Cardiac index 2.3 L/min/ m. Intra-aortic balloon pump placed. CT surgery consult. Currently resting in bed on nasal cannula in CVICU 09/11: Continues on norepinephrine drip at 9 mcg/min and dobutamine drip at 2.5 mcg/kg/min. Intra-aortic balloon pump augmenting well at 1-1. Currently on 8 L simple mask. Keeping right lower extremity straight for the balloon pump. Minimal chest pain this a.m. Currently undergoing evaluation for CABG per CT surgery. 09/12: Remains positive the same. Remains a norepinephrine drip at 9 mcg/min and dobutamine drip at 2.5 mcg/kg/min. Intra-aortic balloon pump augmenting well at 1-1 ratio. Currently on 4 L nasal cannula. No chest pain this a.m. Plan for 2D echocardiogram this a.m. 09/13: Afebrile. Weaned off norepinephrine drip. Remains on dobutamine drip at 2.5 mcg/kg/min. Denies chest pain. 4-5 L nasal cannula. 09/14: Status post clamp was urgent off-pump coronary artery bypass grafting 2 with BEAULIEU to LAD, reverse saphenous vein graft to obtuse marginal 2 of the left circumflex artery, left leg endoscopic vein harvest and intraoperative vein mapping by Dr. Byrd. Patient extubated without complication: 5 L. Remains on Dioni-Synephrine at 50 mcg/min, insulin drip at 6 units an hour and dexmedetomidine 0.2 mcg/kg/min. Subjective 09/15: Afebrile. Currently on 2 L nasal cannula. -200 cc serosanguineous from chest tube since OR. Intra aortic balloon pump currently at 1-2 ratio. Wants to get out of bed to chair 09/16: Prior to arrival for assessment this a.m. patient up out of bed early a.m. with nursing staff. Physical therapy and to evaluate patient upon initiation of standing patient was noted to have loss of coordination on the left , upper and lower extremities. This was the initial attempt at ambulation for patient postoperatively. A stroke alert was called , and initial evaluation NIHSS score initially 7, decreased sensory left upper and lower extremity and dysarthria. Vital signs stable, electrolytes within normal limits , blood glucose 122. Imaging studies pending CT brain and carotids. Dr. Humphries has been notified. Upon my evaluation, patient noted to have confusion , informed this is been baseline for the last 2 days postop . Patient informed me that she takes melatonin for sleep at night at home and has not received it since prior to surgery, having difficulty going to sleep at night. Per report last night patient had difficulty breathing O2 saturation within normal limits patient received additional nebulizer treatment. Currently the patient has a normal respiratory rate O2 saturation 95% on 2 L nasal cannula. Objective Vital Signs Date Time Temp Pulse Resp B/P (MAP) Pulse Ox O2 Delivery O2 Flow Rate FiO2 09/16/17 03:00 98.5 93 18 123/63 (83) 98 09/16/17 03:00 Nasal Cannula 4.00 09/15/17 23:40 100 Intake and Output 09/16/17 09/16/17 09/17/17 08:00 16:00 00:00 Intake Total 350 ml Output Total 530 ml Balance -180 ml Result Diagram: 09/16/17 0859 09/16/17 0443 Imaging Last Impressions Chest X-Ray 09/16/17 0000 Signed Impressions: Service Date/Time: Saturday, September 16, 2017 07:07 - CONCLUSION: Stable chest. Cuauhtemoc Moreno MD FACR Chest CT 09/11/17 0000 Signed Impressions: Service Date/Time: Monday, September 11, 2017 21:56 - CONCLUSION: 1. Consolidation in both lower lobes left greater than right with patchy airspace disease in the upper and middle lobes. 2. Small bilateral pleural effusions. Crow Johnson MD Lower Extremity Ultrasound 09/10/17 0000 Signed Impressions: Service Date/Time: Sunday, September 10, 2017 11:58 - CONCLUSION: Venous mapping as delineated above. Matt Nugent MD Carotid Artery Ultrasound 09/10/17 0000 Signed Impressions: Service Date/Time: Sunday, September 10, 2017 11:02 - CONCLUSION: 1. A significant stenosis is not seen although there is mildly elevated peak systolic velocity in the left internal carotid artery. 2. Flow is not seen in the right vertebral artery. 3. Reversal of flow in diastole seen throughout the exam. This can be seen with cardiac issues including aortic insufficiency. 4. The absence of the right vertebral artery and the mildly elevated peak systolic velocity in the left internal iliac artery could be further evaluated with a CTA of the neck. Matt Nugent MD Last Impressions Chest X-Ray 09/15/17 0500 Signed Impressions: Service Date/Time: Friday, September 15, 2017 04:08 - CONCLUSION: 1. Cardiomegaly and findings of vascular congestion without overt failure. There has been no significant change when compared to the prior exam. Ihsan Nayak MD Chest CT 09/11/17 0000 Signed Impressions: Service Date/Time: Monday, September 11, 2017 21:56 - CONCLUSION: 1. Consolidation in both lower lobes left greater than right with patchy airspace disease in the upper and middle lobes. 2. Small bilateral pleural effusions. Crow Johnson MD Lower Extremity Ultrasound 09/10/17 0000 Signed Impressions: Service Date/Time: Sunday, September 10, 2017 11:58 - CONCLUSION: Venous mapping as delineated above. Matt Nugent MD Carotid Artery Ultrasound 09/10/17 0000 Signed Impressions: Service Date/Time: Sunday, September 10, 2017 11:02 - CONCLUSION: 1. A significant stenosis is not seen although there is mildly elevated peak systolic velocity in the left internal carotid artery. 2. Flow is not seen in the right vertebral artery. 3. Reversal of flow in diastole seen throughout the exam. This can be seen with cardiac issues including aortic insufficiency. 4. The absence of the right vertebral artery and the mildly elevated peak systolic velocity in the left internal iliac artery could be further evaluated with a CTA of the neck. Matt Nugent MD Objective Remarks GENERAL: 66-year-old female currently on 3L nasal cannula in no acute distress SKIN: Warm and dry. HEAD: Atraumatic. Normocephalic. EYES: Pupils equal and round about 3 mm bilaterally and reactive. No scleral icterus. No injection or drainage. ENT: No nasal bleeding or discharge. Mucous membranes pink and moist. NECK: Trachea midline. No JVD. CARDIOVASCULAR: RRR. S1, S2. No S4. Augmentation intra-aortic balloon pump appreciated. Mediastinal/left chest tube to -20 cm H2O 200 cm serosanguineous output. RESPIRATORY: Coarse crackles appreciated bilateral lower lobes. No wheezing is appreciated GASTROINTESTINAL: Abdomen soft, non-tender, nondistended. Hypoactive bowel sounds appreciated MUSCULOSKELETAL: Extremities trace to 1+ bilateral lower extremity edema. No obvious deformities. Intra-aortic balloon pump in right inguinal region clean dry and intact without hematoma. Dorsalis pedis/posterior tibialis palpable bilaterally. GILDA sage B/L NEUROLOGICAL: GCS 14 patient confused , asking is she going to [facility] .Awake and alert. No gross cranial nerve deficits. Motor grossly within normal limits. Five out of 5 muscle strength in the arms and legs at this time. Normal speech. Date of Insertion: Sep 10, 2017 Line: Central Venous Catheter Side: Right Location: Internal, Jugular A/P Assessment and Plan Neuro/Psych: ICU Delirium ? R/O possible CVA Acetaminophen 650 mg p.o. every 6 hours as needed fever Ofirmev 1 g IV every 6 hours [address] surgery Hydrocodone/acetaminophen 5/325 1 tablet every 4 hours as needed pain 1 through 5 Fentanyl 25 mcg every hour as needed breakthrough pain 09/16-stroke alert initiated early this a.m. secondary to loss of coordination left upper and lower extremity now with resolution. Motor strength 5/5 bilateral upper and lower extremities Patient noted to have confusion approximately last 2 days, postoperative, sleep deficit for approx 2 days Melatonin 10 mg nightly as needed for insomnia-patient normally takes at home- maintain sleep hygiene 09/16 Follow-up CT brain and carotid doppler 09/[address] Humphries CV: Postop day #2 clampless urgent off-pump coronary artery bypass graft 2 with BEAULIEU to LAD, reverse saphenous vein graft to obtuse marginal 2 branch of the left circumflex with left leg endoscopic vein harvesting intraoperative vein mapping by Dr Carson Fritz STEMI Hypotension History of hypertension Elevated CPK/troponin of greater than 40 Triglyceridemia Hyperlipidemia Received 324 mg of aspirin, 0.4 mg nitroglycerin in ED. Scheduled for aspirin 81 mg p.o. daily Scheduled for clopidogrel 75 mg mouth daily Maintain mean arterial pressure greater than 65 Echocardiogram revealed EF less than 20%. LV dysfunction. LV hypertrophy. PAP 53 mmHg. Repeat echocardiogram 09/[address] surgery recommendation revealed EF 30-35%. Continue atorvastatin 40 mg by mouth at night for dyslipidemia Minor catheterization revealed RAD 20 mmHg. RVSP 77/18 mmHg. PAP 66/37 mmHg. Pulmonary capillary wedge pressure 47 mmHg. Cardiac output 4.3 L/min. Cardiac index 2.3 L/min/m. Left main 89% stenosis. LAD 95% stenosis. Left circumflex 50% stenosis. Intra-aortic balloon pump placed augmented at 1-1. Plan to wean in a.m. to 1-2 Carotid Dopplers lack of flow in the right vertebral. Recommended CTA if indicated. High velocities left internal carotid artery. [id number] repeat carotid Doppler this a.m. Resp: Acute hypoxic hypercapnic respiratory failure Ongoing tobaccoism Currently on nasal cannula/simple mask to maintain saturations greater than equal to 92% Incentive spirometry while awake Albuterol/ipratropium aerosols every 6 hours with albuterol/ipratropium aerosols every 2 hours as needed for dyspnea Chest x-ray revealed adequate positioning of right IJ CVL. 09/16 chest [id number] Tobacco's educational self-education cessation booklet provided when clinically stable CT thorax 09/11 revealed small bilateral pleural effusions. Patchy infiltrates throughout bilateral lung milan Mediastinal chest tube-190 cc serosanguineous last 24 hours GI: Elevated AST Hypoalbuminemia Heart healthy diet per CT surgery Famotidine 20 mg twice daily for GI prophylaxis Docusate sodium/senna 1 tablet twice daily for bowel regimen : Phipps catheter if indicated for accurate I's and O's in a critical patient receiving diuretics Endo: Mild stress hyperglycemia Sliding scale insulin with Accu-Cheks before meals/at bedtime to maintain euglycemia/low regimen of NovoLog Noted hemoglobin A1c 5.2 and TSH 0.99 Renal: Creatinine currently within normal limits Monitor urine output while on diuretics Accurate I's and O's Heme: Normocytic anemia Thrombocytopenia Monitor CBC daily. Follow trends ID: Monitor for signs and symptoms of infection MSK: PT evaluate and treat FEN: Hyponatremia Follow-up on BMP in a.m. especially since on furosemide Electrolyte CT surgery protocol initiated Scheduled 10 mEq potassium chloride p.o. twice daily while on furosemide currently on hold Access Right IJ CVL day #7 placed 09/10 Right radial arterial line day #2 place 09/14 in OR Left subclavian Cordis with dual-lumen day #2 placed in OR 09/14 Prophylaxis -GI -famotidine -DVT -SCD anticoagulation per CT surgery Level 3 follow-up Physician Maryellen Gambino MD Sep 16, 2017 09:47
--- NOTE | 2017-09-16 09:48 | RADRPT ---
EXAM DATE/TIME: 09/16/2017 09:33 [facility] COMPARISON: No previous studies available for comparison. INDICATIONS : Stroke alert, left sided weakness. RADIATION DOSE: 56.35 CTDIvol (mGy) This report was called to to Dr. Flanagan at 0940 MEDICAL HISTORY : Non-responsive. SURGICAL HISTORY : CABG ENCOUNTER: Initial ACUITY: 1 day PAIN SCALE: Non-responsive LOCATION: Bilateral head TECHNIQUE: Multiple contiguous axial images were obtained of the head. Using automated exposure control and adjustment of the mA and/or kV according to patient size, radiation dose was kept as low as reasonably achievable to obtain optimal diagnostic quality images. DICOM format image data is av ailable electronically for review and comparison. FINDINGS: There is decreased density in the right occipital region suspicious for acute/subacute stroke without hemorrhage. Minimal ischemic changes are present on the left. There is no parenchymal hemorrhage. There no extra-axial fluid collections appreciated. Posterior fossa is unremarkable. CONCLUSION: Probable acute stroke right occipital region without hemorrhage. CTA is pending. Likely subacute right occipital lobe no no no in the left axilla that L. subacute or and is probably Cuauhtemoc Moreno MD FACR on September 16, 2017 at 9:42 Board Certified Radiologist. This report was verified electronically.
[2017-09-16] MEDS ORDERED: IOHEXOL 350 MG/ML 10 ML VIAL (for RAD DIAG) IVCONTRAST ONE (10:01)
[2017-09-16 10:08] LABS: TROPONIN I 1.38 NG/ML (0.02-0.05)
--- NOTE | 2017-09-16 10:18 | PD.CAR.PN ---
CVT Progress Note Subjective/Hospital Course: 66-year-old female who presented to the emergency room on 09/09/2017, brought in emergently with chest pain also radiating down her left arm, possible STEMI Alert with a 12-lead EKG changes, has not had any primary care followup in many years. Pain had been going on for 2 days prior to ER admission, was complaining of shortness of breath, was found to be somewhat tachycardic, tachypneic, hypotensive. She thought initially that it was heartburn-type symptoms. Initial EKG showed ST elevation in V1, V2; however, there were some Q -waves in the precordial leads, with poor R-wave progression. The patient was admitted to the intensive care unit, was started on a heparin drip, nitro drip. She was found to be hypoxic, hypercapnic respiratory failure, history of tobacco abuse. She underwent cardiac catheterization today by Dr. Boyce which showed left main had an ostial 80-90% stenosis, was heavily calcified at the bifurcation of the left anterior descending and left circumflex artery. The LAD was subtotally occluded with a 95% stenosis. The circ had a 50% eccentric stenosis. The right coronary artery was nondominant. EF was approximately 25- 30%, global hypokinesis, mostly pronounced in the anterolateral apical and inferior lateral apical distribution. She also had some stenosis in the left subclavian artery 30%. Due to the high grade left main disease and LAD, she had an intraaortic balloon pump placed. She also underwent right-sided heart catheterization, which showed right atrial pressures of 20, RV pressure is 77/18, pulmonary capillary wedge pressure measured at 47. Cardiac output of 4.3 with an index of 2.3. During the course of the cardiac catheterization, she was also placed on a Levophed drip and a dobutamine drip in addition to the intraaortic balloon pump in the right groin at a 1:1 augmentation. We were consulted to evaluate for coronary artery bypass grafting. The patient also had a 2D echocardiogram, which showed EF of less than 20%, mild mitral regurgitation, trace tricuspid regurgitation. 4/10 breathing better per pt no chest pain, only some back discomfort, IABP right groin 1:1 augmentation remains on dobutamine at 2.5mcq, and levophed at 7 mcq lasix bid , for repeat ECHO in am remains on 8 liter simple mask timing for surgery per Dr Byrd 09/12 EF 30-35% scheduled for surgery on sunday Dr Byrd spoke with pt and daughter off Levo gtt , on heparin and dobutamine IABP 1: 1 right groin , consider weaning dobutamine / and or augmentation 09/13 weaning off Dobutamine, continue IABP 1:1 for surgery in am weaning 02 slowly 09/14 SURGICAL PROCEDURE 1. Clampless Urgent Off-pump Coronary Artery Bypass Grafting x 2 with Left Internal Mammary Artery (BEAULIEU) to Left Anterior Descending (LAD), reverse saphenous vein graft to the Obtuse Marginal 2 (OM2) branch of the Left Circumflex artery 2. Left Leg Endoscopic Vein [place] 3. Intraoperative Vein Mapping 09/15 Doing well. Hemodynamically stable. D/C IABP today Pulmonary Toiletry Transfer telemetry tomorrow 09/16 Morning's events noted. Left sided weakness. CT with new CVA Appreciate CCM and Neurology input. Will add Coumadin tomorrow following removal of CT Keep in CVICU. Alert and appropriately responsive Objective: Vital Signs Date Time Temp Pulse Resp B/P (MAP) Pulse Ox O2 Delivery O2 Flow Rate FiO2 09/16/17 03:00 98.5 93 18 123/63 (83) 98 09/16/17 03:00 98 Nasal Cannula 4.00 09/16/17 03:00 93 09/16/17 01:50 18 09/15/17 23:40 99 Non-Rebreather 15.00 100 09/15/17 23:00 99 Nasal Cannula 4.00 09/15/17 23:00 93 09/15/17 23:00 97.8 93 20 135/66 (89) 98 09/15/17 20:01 98 Nasal Cannula 4.00 09/15/17 19:00 98 Nasal Cannula 4.00 09/15/17 19:00 98.2 100 22 121/69 (86) 98 09/15/17 19:00 100 09/15/17 16:26 97 Nasal Cannula 4.00 09/15/17 15:00 103 09/15/17 15:00 95 Nasal Cannula 4.00 09/15/17 15:00 16 09/15/17 15:00 97.9 96 16 121/69 (86) 95 09/15/17 11:00 97.4 103 16 151/79 (103) 93 Arterial Line 09/15/17 11:00 103 09/15/17 11:00 93 Nasal Cannula 2.00 Labs: Laboratory Tests Test 09/16/17 04:43 09/16/17 08:59 White Blood Count 10.7 TH/MM3 (4.0-11.0) 11.8 TH/MM3 (4.0-11.0) Red Blood Count 2.79 MIL/MM3 (4.00-5.30) 2.97 MIL/MM3 (4.00-5.30) Hemoglobin 9.7 GM/DL (11.6-15.3) 9.9 GM/DL (11.6-15.3) Hematocrit 27.6 % (35.0-46.0) 29.3 % (35.0-46.0) Mean Corpuscular Volume 99.2 FL (80.0-100.0) 98.6 FL (80.0-100.0) Mean Corpuscular Hemoglobin 34.8 PG (27.0-34.0) 33.4 PG (27.0-34.0) Mean Corpuscular Hemoglobin Concent 35.1 % (32.0-36.0) 33.9 % (32.0-36.0) Red Cell Distribution Width 13.3 % (11.6-17.2) 13.5 % (11.6-17.2) Platelet Count 140 TH/MM3 (150-450) 178 TH/MM3 (150-450) Mean Platelet Volume 9.6 FL (7.0-11.0) 9.2 FL (7.0-11.0) Blood Urea Nitrogen 12 MG/DL (7-18) Creatinine 0.59 MG/DL (0.50-1.00) Random Glucose 121 MG/DL (74-106) Calcium Level 8.8 MG/DL (8.5-10.1) Phosphorus Level 3.1 MG/DL (2.5-4.9) Magnesium Level 2.0 MG/DL (1.5-2.5) Sodium Level 137 MEQ/L (136-145) Potassium Level 3.9 MEQ/L (3.5-5.1) Chloride Level 104 MEQ/L (98-107) Carbon Dioxide Level 26.3 MEQ/L (21.0-32.0) Anion Gap 7 MEQ/L (5-15) Estimat Glomerular Filtration Rate 102 ML/MIN (>89) Bedside Hemoglobin 9.9 G/DL (11.6-15.3) Bedside Hematocrit 29.0 % (35.0-46.0) Neutrophils (%) (Auto) 75.9 % (16.0-70.0) Lymphocytes (%) (Auto) 10.7 % (9.0-44.0) Monocytes (%) (Auto) 11.7 % (0.0-8.0) Eosinophils (%) (Auto) 1.1 % (0.0-4.0) Basophils (%) (Auto) 0.6 % (0.0-2.0) Neutrophils # (Auto) 9.0 TH/MM3 (1.8-7.7) Lymphocytes # (Auto) 1.3 TH/MM3 (1.0-4.8) Monocytes # (Auto) 1.4 TH/MM3 (0-0.9) Eosinophils # (Auto) 0.1 TH/MM3 (0-0.4) Basophils # (Auto) 0.1 TH/MM3 (0-0.2) CBC Comment DIFF FINAL Differential Comment Prothrombin Time 10.2 SEC (9.8-11.6) Prothromb Time International Ratio 1.0 RATIO Activated Partial Thromboplast Time 26.6 SEC (24.3-30.1) Fibrinogen 665 mg/dL (227-377) Bedside Sodium 136 MMOL/L (137-144) Bedside Potassium 4.3 MMOL/L (3.6-5.0) Bedside Chloride 100 MMOL/L (102-111) Bedside Blood Urea Nitrogen 10 MG/DL (5-21) Bedside Creatinine 0.6 MG/DL (0.6-1.3) Bedside Glucose 122 MG/DL (68-110) Total Creatine Kinase 382 U/L (26-192) Creatine Kinase MB 3.5 NG/ML (0.5-3.6) Creatine Kinase MB % 0.9 % (0.0-4.0) Troponin I 1.38 NG/ML (0.02-0.05) Result Diagram: 09/16/17 0859 09/16/17 0443 (1) ST elevation [place] (STEMI) Plan: on ASA no BB , on heparin wean off dobutamine IABP 1:1 for surgery in am (2) Acute respiratory failure with hypoxia and hypercapnia Plan: some improvement with diuresis (3) History of hypertension (4) Tobacco abuse Plan: smoking cessation (5) Congestive heart failure Problem Qualifiers (1) ST elevation LA (STEMI): Qualified Codes: I21.02 - ST elevation (STEMI) myocardial infarction involving left anterior descending coronary artery (2) Congestive heart failure: Qualified Codes: I50.9 - Heart failure, unspecified Enrique Byrd MD Sep 16, 2017 10:18
--- NOTE | 2017-09-16 10:34 | RADRPT ---
EXAM DATE/TIME: 09/16/2017 09:44 [facility] COMPARISON: No previous studies available for comparison. INDICATIONS : Stroke alert, left sided weakness. IV CONTRAST: 85 cc Omnipaque 350 (iohexol) IV RADIATION DOSE: 9.96 CTDIvol (mGy) MEDICAL HISTORY : Non-responsive. SURGICAL HISTORY : CABG ENCOUNTER: Initial ACUITY: 1 day PAIN SCALE: Non-responsive LOCATION: Bilateral head TECHNIQUE: Volumetric scanning was performed using a multi-row detector CT scanner. The data was post processed with a variety of visualization algorithms including full volume maximum intensity projection, multi -planar sliding thin slab reformation, curved planar reformation, and surface rendering techniques. Using automated exposure control and adjustment of the mA and/or kV according to patient size, radiat ion dose was kept as low as reasonably achievable to obtain optimal diagnostic quality images. DICO M format image data is available electronically for review and comparison. FINDINGS: Moderate atherosclerotic intracranial vascular disease without embolic occlusion. CONCLUSION: No evidence of embolic occlusion. Cuauhtemoc Moreno MD FACR on September 16, 2017 at 10:26 Board Certified Radiologist. This report was verified electronically.
--- NOTE | 2017-09-16 10:36 | RADRPT ---
EXAM DATE/TIME: 09/16/2017 09:44 [place] COMPARISON: No previous studies available for comparison. INDICATIONS : Stroke alert, left sided weakness. IV CONTRAST: 85 cc Omnipaque 350 (iohexol) IV RADIATION DOSE: 9.96 CTDIvol (mGy) MEDICAL HISTORY : Non-responsive. SURGICAL HISTORY : CABG ENCOUNTER: Initial ACUITY: 1 day PAIN SCALE: Non-responsive LOCATION: Bilateral neck Elevated flow velocities and ICA/CCA ratios have been found to correlate with increased degrees of vessel stenosis, calculated as percentage of diameter relative to a normal segment of distal ICA/CCA. TECHNIQUE: Volumetric scanning was performed using a multirow detector CT scanner. The data was post processed with a variety of visualization algorithms including full-volume maximum intensity projection, multip lanar sliding thin-slab reformation, curved-planar reformation, and surface-rendering techniques. Us ing automated exposure control and adjustment of the mA and/or kV according to patient size, radiatio n dose was kept as low as reasonably achievable to obtain optimal diagnostic quality images. DICOM f ormat image data is available electronically for review and comparison. FINDINGS: AORTIC ARCH: There is a three-vessel origin of the great vessels from the aorta. No evidence of ostial narrowing. RIGHT CAROTID: Moderate atherosclerotic calcification is present without hemodynamically significant stenosis. Ther e is no soft plaque evident. LEFT CAROTID: Mild atherosclerotic calcification without significant stenosis or soft plaque. VERTEBRALS: The vertebral arteries have a symmetric diameter. No stenotic lesions are seen. CONCLUSION: And negative for hemodynamically significant stenosis or source of emboli. Cuauhtemoc Moreno MD FACR on September 16, 2017 at 10:33 Board Certified Radiologist. This report was verified electronically.
[2017-09-16] MEDS: SODIUM CHLORIDE 0.9% FLUSH 10 ML FLUSH IV FLUSH SCH ×2 (10:42→21:00)
[2017-09-16] MEDS: DOCUSATE SODIUM 50 MG/SENNA 8.6 MG TAB PO SCH ×2 (10:43→20:59)
[2017-09-16] MEDS: METOPROLOL TARTRATE 25 MG TAB PO SCH ×2 (10:43→20:59)
[2017-09-16] MEDS: DOCUSATE SODIUM 100 MG CAP PO SCH ×2 (10:43→21:00)
[2017-09-16] MEDS: CLOPIDOGREL 75 MG TAB PO SCH (10:43)
[2017-09-16] MEDS: FAMOTIDINE 20 MG TAB PO SCH ×2 (10:43→20:59)
[2017-09-16] MEDS: MAGNESIUM HYDROXIDE SUSP 30 ML CUP PO SCH (10:43)
[2017-09-16] MEDS: MULTIVITAMINS/MINERALS THERAPEUTIC TAB PO SCH (10:49)
[2017-09-16] MEDS: ASPIRIN 81 MG CHEW TAB PO SCH (10:50)
--- NOTE | 2017-09-16 11:07 | PD.CONS ---
History of Present Illness Service Neurology Consult Requested By cts Reason for Consult stroke alert Primary Care Physician Unknown History of Present Illness 66-year-old f admitted for cp. had cath which showed cad. then underwent cabg. stroke alert called this am for neuro changes. noted to be confused past 2 days per rn, but this am more confused and neglecting left side with rt gaze noticed by therapist that rn didn't notice this am except for mild ongoing confusion. due to recent major surgery, cabg and removal of balloon pump, and unclear onset with confusion preceding over past few days, not iv tpa candidate. ct brain shows subacute rt occipital infarct. cta's then performed to r/o large vessel occlusion- negative. has been on aspirin/plavix. currently, pt states she feels a little weakness on the left side but denies any visual compliants. no martinez. Review of Systems as above Past Family Social History Allergies: Coded Allergies: No Known Allergies (Verified Allergy, Unknown, 09/09/17) Past Medical History Hypertension Tobacco abuse Past Surgical History Ectopic Appendectomy Oophorectomy Reported Medications Aleve as needed Active Ordered Medications Reviewed in EMR Family History Father with myocardial infarction. Social History Occasional social alcohol use. One pack per day tobacco 40 years. Review of Systems All other ROS: ROS reviewed as documented in chart Past Family Social History Allergies: Coded Allergies: No Known Allergies (Verified Allergy, Unknown, 09/09/17) Active Ordered Medications Current Medications Medications (Trade) Dose Ordered Sig/Shraddha Route Start Time Stop Time Status Last Admin ([place] 5-325 Mg) 1 tab Q4H PRN PO 09/09/17 13:00 09/13/17 17:31 (Pepcid) 20 mg Q12HR PO 09/09/17 21:00 09/16/17 10:43 (Kiya-Colace) 1 tab BID PO 09/09/17 21:00 09/16/17 10:43 (Milk Of Magnesia Liq) 30 ml Q12H PRN PO 09/09/17 14:00 09/13/17 09:21 (Senokot) 17.2 mg Q12H PRN PO 09/09/17 12:30 (Dulcolax Supp) 10 mg DAILY PRN RECTAL 09/09/17 14:00 09/13/17 21:48 (Lactulose Liq) 30 ml DAILY PRN PO 09/09/17 14:00 09/13/17 14:15 (Lipitor) 40 mg HS PO 09/10/17 21:00 09/15/17 21:19 (Betadine 5% Antisepsis Kit) 1 applic [employer] OPERATOR PRN EACH NARE 09/13/17 22:30 09/16/17 22:29 (NS Flush) 2 ml BID IV FLUSH 09/14/17 21:00 09/16/17 10:42 (NS Flush) 2 ml UNSCH PRN IV FLUSH 09/14/17 11:30 Nitroglycerin/ Dextrose 250 ml @ 1.5 mls/hr TITRATE PRN IV 09/14/17 11:30 Dopamine HCl/ Dextrose 250 ml @ 8.55 mls/hr TITRATE PRN IV 09/14/17 11:30 Phenylephrine HCl 40 mg/Dextrose 500 ml @ 30 mls/hr TITRATE PRN IV 09/14/17 11:30 09/15/17 00:56 Clevidipine 50 ml @ 2 mls/hr TITRATE PRN IV 09/14/17 11:30 Albumin Human 250 ml @ 250 mls/hr UNSCH PRN IV 09/14/17 11:30 09/14/17 14:28 Lactated Ringer's 500 ml @ 500 mls/hr Q1H PRN IV 09/14/17 11:17 (Aspirin Chew) 81 mg DAILY PO 09/15/17 09:00 09/16/17 10:50 (Plavix) 75 mg DAILY PO 09/15/17 09:00 09/16/17 10:43 (Tylenol) 650 mg Q4H PRN PO 09/14/17 11:30 (Tylenol Supp) 650 mg Q4H PRN RECTAL 09/14/17 11:30 (Morphine Inj) 1 mg Q10M PRN IV PUSH 09/14/17 12:15 (Demerol Inj) 12.5 mg Q4H PRN IV PUSH 09/14/17 11:30 (Toradol Inj) 15 mg Q6H PRN IV PUSH 09/14/17 11:30 09/16/17 11:29 09/15/17 14:00 (fentaNYL INJ) 25 mcg Q1H PRN IV PUSH 09/14/17 11:30 09/16/17 00:49 (Zofran Inj) 4 mg Q6H PRN IV PUSH 09/14/17 11:30 (Apresoline Inj) 10 mg Q4H PRN IV PUSH 09/14/17 11:30 (Lopressor Inj) 2.5 mg Q1H PRN IV PUSH 09/14/17 11:30 Potassium Chloride 100 ml @ 50 mls/hr UNSCH PRN IV 09/14/17 11:30 Potassium Chloride 100 ml @ 50 mls/hr UNSCH PRN IV 09/14/17 11:30 (KCl) 40 meq UNSCH PRN PO 09/14/17 11:30 Magnesium Sulfate 2 gm/Sodium Chloride 104 ml @ 100 mls/hr UNSCH PRN IV 09/14/17 11:30 Calcium Chloride 1 gm/Sodium Chloride 110 ml @ 100 mls/hr UNSCH PRN IV 09/14/17 11:30 09/14/17 13:00 (Calcium Chloride Inj) 0.5 gm UNSCH PRN IV PUSH 09/14/17 11:30 (Sodium Bicarbonate 8.4% Inj) 50 meq UNSCH PRN IV PUSH 09/14/17 11:30 (Sodium Bicarbonate 8.4% Inj) 100 meq UNSCH PRN IV PUSH 09/14/17 11:30 (Duoneb Neb) 1 ampule Q2HR NEB PRN NEB 09/14/17 11:30 09/15/17 23:54 (Racepinephrine 2.25% Neb) 0.5 ml UNSCH X1 PRN NEB 09/14/17 11:30 09/28/17 11:29 Dobutamine HCl 250 mg/Dextrose 250 ml @ 11.4 mls/hr [id number] PRN IV 09/14/17 13:00 Cefazolin Sodium/ Dextrose 50 ml @ 100 mls/hr Q8H IV 09/15/17 10:00 09/16/17 18:29 09/16/17 10:48 (Lopressor) 12.5 mg Q12HR PO 09/15/17 11:15 09/16/17 10:43 (Pill Splitter) 1 ea UNSCH PRN OTHER 09/15/17 11:15 (Milk Of Magnesia Liq) 30 ml DAILY PO 09/15/17 13:00 09/16/17 10:43 (Colace) 100 mg BID PO 09/15/17 21:00 09/16/17 10:43 (Dulcolax Supp) 10 mg UNSCH PRN RECTAL 09/15/17 13:00 (Miralax) 17 gm DAILY PO 09/16/17 09:00 (Senokot) 8.6 mg HS PO 09/15/17 21:00 09/15/17 21:20 (Fleets Enema (Adult)) 133 ml UNSCH PRN RECTAL 09/15/17 13:00 (Theragran M Tab) 1 tab DAILY PO 09/16/17 09:00 09/16/17 10:49 (NovoLOG SUPPLEMENTAL SCALE) 1 02,06,10,14,18,22 SQ 09/15/17 14:00 09/16/17 13:59 09/16/17 10:50 (D50w (Vial) Inj) 50 ml UNSCH PRN IV PUSH 09/15/17 13:00 (Glucagon Inj) 1 mg UNSCH PRN IV PUSH 09/15/17 13:00 (Duoneb Neb) 1 ampule Q6HR WHILE AWAKE NEB NEB 09/15/17 20:00 09/17/17 19:59 09/15/17 23:52 (Melatonin) 10 mg HS PRN PO 09/16/17 10:00 Exam I&O / VS Vital Signs Date Time Temp Pulse Resp B/P (MAP) Pulse Ox O2 Delivery O2 Flow Rate FiO2 09/16/17 03:00 98.5 93 18 123/63 (83) 98 09/16/17 03:00 98 Nasal Cannula 4.00 09/16/17 03:00 93 09/16/17 01:50 18 09/15/17 23:40 99 Non-Rebreather 15.00 100 09/15/17 23:00 99 Nasal Cannula 4.00 09/15/17 23:00 93 09/15/17 23:00 97.8 93 20 135/66 (89) 98 09/15/17 20:01 98 Nasal Cannula 4.00 09/15/17 19:00 98 Nasal Cannula 4.00 09/15/17 19:00 98.2 100 22 121/69 (86) 98 09/15/17 19:00 100 09/15/17 16:26 97 Nasal Cannula 4.00 09/15/17 15:00 103 09/15/17 15:00 95 Nasal Cannula 4.00 09/15/17 15:00 16 09/15/17 15:00 97.9 96 16 121/69 (86) 95 09/15/17 11:00 97.4 103 16 151/79 (103) 93 Arterial Line 09/15/17 11:00 103 09/15/17 11:00 93 Nasal Cannula 2.00 General: Alert and Oriented, No acute distress Eye: EOMI Respiratory: Non-labored respirations Neurologic: Alert, Oriented, CN II-XII intact, Normal DTR's Psychiatric: Cooperative, Appropriate mood & affect Exam Comments alerts, ox 3, calm, pleasant, looks well, eomi, ou 3-2mm, no gross vff, mild left sided dystaxia but able to raise all 4 ext to gravity Review/Management Diagnosis/Plan: (1) Acute right VEGETABLE PREPARER stroke ICD Codes: I63.531 - Cerebral infarction due to unspecified occlusion or stenosis of right posterior cerebral artery Status: Acute Plan: possibly 2/2 depressed EF with global hypokinesis ef 20-30% recs coumadin non-loading dose in am and slowly titrate up to goal inr 2-2.5 avoid hypotension on statin tobacco cessation d/w cts (2) Congestive heart failure ICD Codes: I50.9 - Heart failure, unspecified Status: Acute Plan: cardio following (3) ST elevation [place] (STEMI) ICD Codes: I21.3 - ST elevation (STEMI) myocardial infarction of unspecified site Status: Acute Plan: cardio following (4) S/P CABG (coronary artery bypass graft) ICD Codes: Z95.1 - Presence of aortocoronary bypass graft Status: Acute Plan: cts following Problem Qualifiers (1) Congestive heart failure: Qualified Codes: I50.9 - Heart failure, unspecified (2) ST elevation [place] (STEMI): Qualified Codes: I21.02 - ST elevation (STEMI) myocardial infarction involving left anterior descending coronary artery Leno Hmuphries MD Sep 16, 2017 11:07
--- NOTE | 2017-09-16 15:47 | EKG ---
Date Performed: 09/16/2017 Time Performed: 09:02:06 PTAGE: 66 years EKG: Sinus tachycardia. Possible anterior infarct - age undetermined Lateral T wave changes may be due to myocardial ischemia Low QRS voltages in precordial leads Abnormal ECG Compared to PREVIOUS TRACING , the patient is now tachycardic. PREVIOUS TRACIN09/15/2017 05.02.24 DOCTOR: Radha Shaw Interpretating Date/Time 09/16/2017 15:46:25
[2017-09-16] MEDS: ATORVASTATIN 40 MG TAB PO SCH (20:59)
[2017-09-16] MEDS: SENNOSIDES 8.6 MG TAB PO SCH (20:59)
[2017-09-16] MEDS: MELATONIN 5 MG TAB PO PRN (23:15)
[2017-09-17] VITALS (22 sets, daily range): BP systolic 108–155; BP diastolic 53–73; PULSE 18–110; RESP 16–18; TEMP 97.9–99.2; O2SAT 93–98
[2017-09-17] MEDS: RESP: ALBUTEROL 2.5 MG/IPRATROPIUM 0.5 MG NEB (PRN) NEB (02:54)
[2017-09-17 05:58] LABS: HEMATOCRIT 26.4 % (35.0-46.0); HEMOGLOBIN 9.2 GM/DL (11.6-15.3); MEAN CORPUSCULAR HEMOGLOBIN 34.7 PG (27.0-34.0); MEAN CORPUSCULAR HGB CONC 35.1 % (32.0-36.0); MEAN PLATELET VOLUME 8.8 FL (7.0-11.0); PLATELET COUNT 236 TH/MM3 (150-450); RED BLOOD COUNT 2.66 MIL/MM3 (4.00-5.30); RED CELL DISTRIBUTION WIDTH 13.1 % (11.6-17.2); WHITE BLOOD COUNT 10.7 TH/MM3 (4.0-11.0)
[2017-09-17 06:22] LABS: BICARBONATE 23.4 MEQ/L (21.0-32.0); CALCIUM 8.7 MG/DL (8.5-10.1); CREATININE 0.46 MG/DL (0.50-1.00); MAGNESIUM 2.1 MG/DL (1.5-2.5); PHOSPHORUS 3.4 MG/DL (2.5-4.9)
[2017-09-17] MEDS: RESP: ALBUTEROL 2.5 MG/IPRATROPIUM 0.5 MG NEB (SCH) NEB ×3 (07:32→19:33)
--- NOTE | 2017-09-17 09:10 | MG ---
cc: Leno Humphries MD ELECTROENCEPHALOGRAM RECORD NUMBER: [id number]. DESCRIPTION: Six theta Hz activity, 10-50 microvolts. Bursts of paroxysmal generalized delta activity occurring. Further slowing suggestive of drowsy state. Frequent arousals followed by sleep state transition to stage I and stage II sleep. Single EKG showing sinus rhythm with premature contractions. Limited driving with photic stimulation. INTERPRETATION: Minimal encephalopathy in sleep state. Clinical correlation. MD OLEGARIO Erickson/SHAILA , 06:55 PM , 07:05 PM
[2017-09-17] MEDS: CLOPIDOGREL 75 MG TAB PO SCH (09:16)
[2017-09-17] MEDS: DOCUSATE SODIUM 100 MG CAP PO SCH ×2 (09:16→21:52)
[2017-09-17] MEDS: FAMOTIDINE 20 MG TAB PO SCH ×2 (09:16→21:52)
[2017-09-17] MEDS: DOCUSATE SODIUM 50 MG/SENNA 8.6 MG TAB PO SCH (09:16)
[2017-09-17] MEDS: ASPIRIN 81 MG CHEW TAB PO SCH (09:16)
[2017-09-17] MEDS: MULTIVITAMINS/MINERALS THERAPEUTIC TAB PO SCH (09:16)
[2017-09-17] MEDS: SODIUM CHLORIDE 0.9% FLUSH 10 ML FLUSH IV FLUSH SCH ×2 (09:17→21:52)
--- NOTE | 2017-09-17 09:18 | HHI.PR ---
Review/Management Diagnosis/Plan: (1) Acute right SCRAP PREPARER stroke ICD Codes: I63.531 - Cerebral infarction due to unspecified occlusion or stenosis of right posterior cerebral artery Status: Acute Plan: possibly 2/2 depressed EF with global hypokinesis ef 20-30% recs neuro stable f/u echo coumadin non-loading dose and slowly titrate up to goal inr 2-2.5 avoid hypotension on statin tobacco cessation (2) Congestive heart failure ICD Codes: I50.9 - Heart failure, unspecified Status: Acute Plan: cardio following (3) ST elevation [place] (STEMI) ICD Codes: I21.3 - ST elevation (STEMI) myocardial infarction of unspecified site Status: Acute Plan: cardio following (4) S/P CABG (coronary artery bypass graft) ICD Codes: Z95.1 - Presence of aortocoronary bypass graft Status: Acute Plan: cts following Subjective Subjective Comments No acute events reported No headache No chest pain No dyspnea Active Medications Current Medications Medications (Trade) Dose Ordered Sig/Shraddha Route Start Time Stop Time Status Last Admin ([place] 5-325 Mg) 1 tab Q4H PRN PO 09/09/17 13:00 09/13/17 17:31 (Pepcid) 20 mg Q12HR PO 09/09/17 21:00 09/16/17 20:59 (Kiya-Colace) 1 tab BID PO 09/09/17 21:00 09/16/17 20:59 (Milk Of Magnesia Liq) 30 ml Q12H PRN PO 09/09/17 14:00 09/13/17 09:21 (Senokot) 17.2 mg Q12H PRN PO 09/09/17 12:30 (Dulcolax Supp) 10 mg DAILY PRN RECTAL 09/09/17 14:00 09/13/17 21:48 (Lactulose Liq) 30 ml DAILY PRN PO 09/09/17 14:00 09/13/17 14:15 (Lipitor) 40 mg HS PO 09/10/17 21:00 09/16/17 20:59 (NS Flush) 2 ml BID IV FLUSH 09/14/17 21:00 09/16/17 21:00 (NS Flush) 2 ml UNSCH PRN IV FLUSH 09/14/17 11:30 Nitroglycerin/ Dextrose 250 ml @ 1.5 mls/hr TITRATE PRN IV 09/14/17 11:30 Dopamine HCl/ Dextrose 250 ml @ 8.55 mls/hr TITRATE PRN IV 09/14/17 11:30 Phenylephrine HCl 40 mg/Dextrose 500 ml @ 30 mls/hr TITRATE PRN IV 09/14/17 11:30 09/15/17 00:56 Clevidipine 50 ml @ 2 mls/hr TITRATE PRN IV 09/14/17 11:30 Albumin Human 250 ml @ 250 mls/hr UNSCH PRN IV 09/14/17 11:30 09/14/17 14:28 Lactated Ringer's 500 ml @ 500 mls/hr Q1H PRN IV 09/14/17 11:17 (Aspirin Chew) 81 mg DAILY PO 09/15/17 09:00 09/16/17 10:50 (Plavix) 75 mg DAILY PO 09/15/17 09:00 09/16/17 10:43 (Tylenol) 650 mg Q4H PRN PO 09/14/17 11:30 (Tylenol Supp) 650 mg Q4H PRN RECTAL 09/14/17 11:30 (Morphine Inj) 1 mg Q10M PRN IV PUSH 09/14/17 12:15 (Demerol Inj) 12.5 mg Q4H PRN IV PUSH 09/14/17 11:30 (fentaNYL INJ) 25 mcg Q1H PRN IV PUSH 09/14/17 11:30 09/16/17 00:49 (Zofran Inj) 4 mg Q6H PRN IV PUSH 09/14/17 11:30 (Apresoline Inj) 10 mg Q4H PRN IV PUSH 09/14/17 11:30 (Lopressor Inj) 2.5 mg Q1H PRN IV PUSH 09/14/17 11:30 Potassium Chloride 100 ml @ 50 mls/hr UNSCH PRN IV 09/14/17 11:30 Potassium Chloride 100 ml @ 50 mls/hr UNSCH PRN IV 09/14/17 11:30 (KCl) 40 meq UNSCH PRN PO 09/14/17 11:30 Magnesium Sulfate 2 gm/Sodium Chloride 104 ml @ 100 mls/hr UNSCH PRN IV 09/14/17 11:30 Calcium Chloride 1 gm/Sodium Chloride 110 ml @ 100 mls/hr UNSCH PRN IV 09/14/17 11:30 09/14/17 13:00 (Calcium Chloride Inj) 0.5 gm UNSCH PRN IV PUSH 09/14/17 11:30 (Sodium Bicarbonate 8.4% Inj) 50 meq UNSCH PRN IV PUSH 09/14/17 11:30 (Sodium Bicarbonate 8.4% Inj) 100 meq UNSCH PRN IV PUSH 09/14/17 11:30 (Duoneb Neb) 1 ampule Q2HR NEB PRN NEB 09/14/17 11:30 09/17/17 02:54 (Racepinephrine 2.25% Neb) 0.5 ml UNSCH X1 PRN NEB 09/14/17 11:30 09/28/17 11:29 Dobutamine HCl 250 mg/Dextrose 250 ml @ 11.4 mls/hr [id number] PRN IV 09/14/17 13:00 (Lopressor) 12.5 mg Q12HR PO 09/15/17 11:15 09/16/17 20:59 (Pill Splitter) 1 ea UNSCH PRN OTHER 09/15/17 11:15 (Milk Of Magnesia Liq) 30 ml DAILY PO 09/15/17 13:00 09/16/17 10:43 (Colace) 100 mg BID PO 09/15/17 21:00 09/16/17 21:00 (Dulcolax Supp) 10 mg UNSCH PRN RECTAL 09/15/17 13:00 (Miralax) 17 gm DAILY PO 09/16/17 09:00 (Senokot) 8.6 mg HS PO 09/15/17 21:00 09/16/17 20:59 (Fleets Enema (Adult)) 133 ml UNSCH PRN RECTAL 09/15/17 13:00 (Theragran M Tab) 1 tab DAILY PO 09/16/17 09:00 09/16/17 10:49 (D50w (Vial) Inj) 50 ml UNSCH PRN IV PUSH 09/15/17 13:00 (Glucagon Inj) 1 mg UNSCH PRN IV PUSH 09/15/17 13:00 (Duoneb Neb) 1 ampule Q6HR WHILE AWAKE NEB NEB 09/15/17 20:00 09/17/17 19:59 09/17/17 07:32 (Melatonin) 10 mg HS PRN PO 09/16/17 10:00 09/16/17 23:15 Allergies Allergies Coded Allergies No Known Allergies (Verified Allergy, Unknown, 09/09/17) Review of Systems All other ROS: ROS reviewed as documented in chart Exam I&O / VS Vital Signs Date Time Temp Pulse Resp B/P (MAP) Pulse Ox O2 Delivery O2 Flow Rate FiO2 09/17/17 07:32 96 Nasal Cannula 4.00 09/17/17 03:00 94 Nasal Cannula 4.00 09/17/17 03:00 98.6 94 18 131/73 (92) 94 09/17/17 03:00 99 09/17/17 02:55 96 Nasal Cannula 5.00 09/16/17 23:00 95 Nasal Cannula 4.00 09/16/17 23:00 98.6 94 18 125/53 (77) 95 09/16/17 23:00 94 09/16/17 20:07 91 21 09/16/17 19:00 100 09/16/17 19:00 98.7 96 18 127/62 (83) 96 09/16/17 19:00 96 Nasal Cannula 4.00 09/16/17 15:00 103 09/16/17 15:00 97 Nasal Cannula 3.00 09/16/17 15:00 97.5 101 16 133/58 (83) 96 09/16/17 14:09 95 Nasal Cannula 3.00 09/16/17 11:00 98 09/16/17 11:00 96 Nasal Cannula 4.00 09/16/17 11:00 97.5 101 16 133/58 (83) 96 General: Alert and Oriented, No acute distress Eye: EOMI Respiratory: Non-labored respirations Neurologic: Alert, Oriented, CN II-XII intact, Normal DTR's Psychiatric: Cooperative, Appropriate mood & affect Exam Comments alerts, ox 3, calm, pleasant, looks well, eomi, ou 3-2mm, no gross vff, mild left sided dystaxia-better then yesterday, but able to raise all 4 ext to gravity Objective Micro and Labs Laboratory Tests Test 09/17/17 05:27 White Blood Count 10.7 Red Blood Count 2.66 Hemoglobin 9.2 Hematocrit 26.4 Mean Corpuscular Volume 99.0 Mean Corpuscular Hemoglobin 34.7 Mean Corpuscular Hemoglobin Concent 35.1 Red Cell Distribution Width 13.1 Platelet Count 236 Mean Platelet Volume 8.8 Blood Urea Nitrogen 11 Creatinine 0.46 Random Glucose 89 Calcium Level 8.7 Phosphorus Level 3.4 Magnesium Level 2.1 Sodium Level 139 Potassium Level 4.0 Chloride Level 106 Carbon Dioxide Level 23.4 Anion Gap 10 Estimat Glomerular Filtration Rate 135 Problem Qualifiers (1) Congestive heart failure: Qualified Codes: I50.9 - Heart failure, unspecified (2) ST elevation [place] (STEMI): Qualified Codes: I21.02 - ST elevation (STEMI) myocardial infarction involving left anterior descending coronary artery Leno Humphries MD Sep 17, 2017 09:18
--- NOTE | 2017-09-17 09:35 | PD.CAR.PN ---
CVT Progress Note Subjective/Hospital Course: 66-year-old female who presented to the emergency room on 09/09/2017, brought in emergently with chest pain also radiating down her left arm, possible STEMI Alert with a 12-lead EKG changes, has not had any primary care followup in many years. Pain had been going on for 2 days prior to ER admission, was complaining of shortness of breath, was found to be somewhat tachycardic, tachypneic, hypotensive. She thought initially that it was heartburn-type symptoms. Initial EKG showed ST elevation in V1, V2; however, there were some Q -waves in the precordial leads, with poor R-wave progression. The patient was admitted to the intensive care unit, was started on a heparin drip, nitro drip. She was found to be hypoxic, hypercapnic respiratory failure, history of tobacco abuse. She underwent cardiac catheterization today by Dr. Boyce which showed left main had an ostial 80-90% stenosis, was heavily calcified at the bifurcation of the left anterior descending and left circumflex artery. The LAD was subtotally occluded with a 95% stenosis. The circ had a 50% eccentric stenosis. The right coronary artery was nondominant. EF was approximately 25- 30%, global hypokinesis, mostly pronounced in the anterolateral apical and inferior lateral apical distribution. She also had some stenosis in the left subclavian artery 30%. Due to the high grade left main disease and LAD, she had an intraaortic balloon pump placed. She also underwent right-sided heart catheterization, which showed right atrial pressures of 20, RV pressure is 77/18, pulmonary capillary wedge pressure measured at 47. Cardiac output of 4.3 with an index of 2.3. During the course of the cardiac catheterization, she was also placed on a Levophed drip and a dobutamine drip in addition to the intraaortic balloon pump in the right groin at a 1:1 augmentation. We were consulted to evaluate for coronary artery bypass grafting. The patient also had a 2D echocardiogram, which showed EF of less than 20%, mild mitral regurgitation, trace tricuspid regurgitation. 4/10 breathing better per pt no chest pain, only some back discomfort, IABP right groin 1:1 augmentation remains on dobutamine at 2.5mcq, and levophed at 7 mcq lasix bid , for repeat ECHO in am remains on 8 liter simple mask timing for surgery per Dr Byrd 09/12 EF 30-35% scheduled for surgery on sunday Dr Byrd spoke with pt and daughter off Levo gtt , on heparin and dobutamine IABP 1: 1 right groin , consider weaning dobutamine / and or augmentation 09/13 weaning off Dobutamine, continue IABP 1:1 for surgery in am weaning 02 slowly 09/14 SURGICAL PROCEDURE 1. Clampless Urgent Off-pump Coronary Artery Bypass Grafting x 2 with Left Internal Mammary Artery (BEAULIEU) to Left Anterior Descending (LAD), reverse saphenous vein graft to the Obtuse Marginal 2 (OM2) branch of the Left Circumflex artery 2. Left Leg Endoscopic Vein [place] 3. Intraoperative Vein Mapping 09/15 Doing well. Hemodynamically stable. D/C IABP today Pulmonary Toiletry Transfer telemetry tomorrow 09/16 Morning's events noted. Left sided weakness. CT with new CVA Appreciate CCM and Neurology input. Will add Coumadin tomorrow following removal of CT Keep in CVICU. Alert and appropriately responsive 09/17 chest tube drained 140cc/ 12 hrs eval for removal later today left sided weakness, speech improved, strength improved, will need inpt stroke rehab placement start Coumadin when chest tubes out/ goal 2.-2.5 Speech/ OT/ PT Objective: GENERAL: more awake and alert, mild cognitive deficit SKIN: Warm and dry. prevena dressing to chest HEAD: Normocephalic. EYES: No scleral icterus. No injection or drainage. NECK: Supple, trachea midline. No JVD or lymphadenopathy. CARDIOVASCULAR: Regular rate and rhythm without murmurs, gallops, or rubs. RESPIRATORY: Breath sounds equal bilaterally. No accessory muscle use. few crackles in bases / chest tube no air leak / drained 140cc/ 12 hrs GASTROINTESTINAL: Abdomen soft, non-tender, nondistended. MUSCULOSKELETAL: No cyanosis, or edema. left sided weakness BACK: Nontender without obvious deformity. No CVA tenderness. Vital Signs Date Time Temp Pulse Resp B/P (MAP) Pulse Ox O2 Delivery O2 Flow Rate FiO2 09/17/17 07:32 96 Nasal Cannula 4.00 09/17/17 03:00 94 Nasal Cannula 4.00 09/17/17 03:00 98.6 94 18 131/73 (92) 94 09/17/17 03:00 99 09/17/17 02:55 96 Nasal Cannula 5.00 09/16/17 23:00 95 Nasal Cannula 4.00 09/16/17 23:00 98.6 94 18 125/53 (77) 95 09/16/17 23:00 94 09/16/17 20:07 91 21 09/16/17 19:00 100 09/16/17 19:00 98.7 96 18 127/62 (83) 96 09/16/17 19:00 96 Nasal Cannula 4.00 09/16/17 15:00 103 09/16/17 15:00 97 Nasal Cannula 3.00 09/16/17 15:00 97.5 101 16 133/58 (83) 96 09/16/17 14:09 95 Nasal Cannula 3.00 09/16/17 11:00 98 09/16/17 11:00 96 Nasal Cannula 4.00 09/16/17 11:00 97.5 101 16 133/58 (83) 96 Labs: Laboratory Tests Test 09/17/17 05:27 White Blood Count 10.7 TH/MM3 (4.0-11.0) Red Blood Count 2.66 MIL/MM3 (4.00-5.30) Hemoglobin 9.2 GM/DL (11.6-15.3) Hematocrit 26.4 % (35.0-46.0) Mean Corpuscular Volume 99.0 FL (80.0-100.0) Mean Corpuscular Hemoglobin 34.7 PG (27.0-34.0) Mean Corpuscular Hemoglobin Concent 35.1 % (32.0-36.0) Red Cell Distribution Width 13.1 % (11.6-17.2) Platelet Count 236 TH/MM3 (150-450) Mean Platelet Volume 8.8 FL (7.0-11.0) Blood Urea Nitrogen 11 MG/DL (7-18) Creatinine 0.46 MG/DL (0.50-1.00) Random Glucose 89 MG/DL (74-106) Calcium Level 8.7 MG/DL (8.5-10.1) Phosphorus Level 3.4 MG/DL (2.5-4.9) Magnesium Level 2.1 MG/DL (1.5-2.5) Sodium Level 139 MEQ/L (136-145) Potassium Level 4.0 MEQ/L (3.5-5.1) Chloride Level 106 MEQ/L (98-107) Carbon Dioxide Level 23.4 MEQ/L (21.0-32.0) Anion Gap 10 MEQ/L (5-15) Estimat Glomerular Filtration Rate 135 ML/MIN (>89) Result Diagram: 09/17/17 0527 09/17/17 0527 (1) ST elevation [place] (STEMI) Plan: on ASA, plavix start Coumadin when chest tube out eval for inpt rehab transfer to stepdown if ok with Neuro consult ot/speech for cognitive eval and continue PT pulm toileting (2) History of hypertension (3) Tobacco abuse Plan: smoking cessation (4) Congestive heart failure Plan: gentle diuresis Problem Qualifiers (1) ST elevation [place] (STEMI): Qualified Codes: I21.02 - ST elevation (STEMI) myocardial infarction involving left anterior descending coronary artery (2) Congestive heart failure: Qualified Codes: I50.9 - Heart failure, unspecified Danni Bales Sep 17, 2017 09:35
[2017-09-17] MEDS: POLYETHYLENE GLYCOL 17 GM PKG PO SCH (09:39)
[2017-09-17] MEDS: MAGNESIUM HYDROXIDE SUSP 30 ML CUP PO SCH (09:39)
[2017-09-17] MEDS ORDERED: FUROSEMIDE 20 MG/2 ML VIAL IV PUSH ONE (11:00)
[2017-09-17] MEDS ORDERED: POTASSIUM CHLORIDE 10 MEQ CONTROLLED RELEASE TAB PO ONE (11:00)
[2017-09-17 13:22] LABS: PROTHROMBIN TIME - PATIENT 10.5 SEC (9.8-11.6)
--- NOTE | 2017-09-17 15:07 | HHI.CCPN ---
Subjective Remarks/Hospital Course This is a 66-year-old female. Date of admission 09/09/2017.. Past medical history includes hypertension and ongoing tobaccoism. She presents today to the [facility] emergency room emergently for chest pain radiating down her left arm as a possible STEMI alert identified by the paramedics with their twelve-lead EKG. history of tobaccoism prior hypertension which she does not want take any medication. This chest pain with left-sided radiation has been ongoing for the past 48 hours/continuous running a 5 out of 10 on a scale of 1-10 obvious tachypnea upon presentation. Also tachycardic with heart rate in 140s. Initial blood pressure systolic was 90 patient had received 4 81 mg tablets aspirin and 1 0.4 mg sublingual nitro. It was hard to get any further history than this from the patient given her respiratory distress and anxiety. EKG revealed ST elevation in leads V1 and V2 with Q waves. STEMI alert was called. Patient worsening hypoxia and was started on BiPAP. Respiratory rate initially in the 40s currently about 25 and patient "feels better". Was evaluated by Dr. Boyce. Wishes perform heart catheterization 09/10 a.m. Started on aspirin 81 mg daily furosemide 40 mg IV twice daily. Patient's current heparin drip at thousand units an hour. Cannot give nitroglycerin drip due to hypotension. As tolerated metoprolol tartrate 2.5 mg IV every 6 hours 09/10: Central line placed overnight and started on norepinephrine drip at 10 mcg/ min and dobutamine drip at 2.5 mcg/kg/min. Echocardiogram revealed EF less than 20%. Global LV dysfunction. LVH. Pulmonary arterial pressures 53 mmHg. Cardiac catheterization revealed severe stenosis left main. LAD 95% stenosis. Circumflex 50% stenosis. Pulmonary wedge pressure 47. Cardiac index 2.3 L/min/ m. Intra-aortic balloon pump placed. CT surgery consult. Currently resting in bed on nasal cannula in CVICU 09/11: Continues on norepinephrine drip at 9 mcg/min and dobutamine drip at 2.5 mcg/kg/min. Intra-aortic balloon pump augmenting well at 1-1. Currently on 8 L simple mask. Keeping right lower extremity straight for the balloon pump. Minimal chest pain this a.m. Currently undergoing evaluation for CABG per CT surgery. 09/12: Remains positive the same. Remains a norepinephrine drip at 9 mcg/min and dobutamine drip at 2.5 mcg/kg/min. Intra-aortic balloon pump augmenting well at 1-1 ratio. Currently on 4 L nasal cannula. No chest pain this a.m. Plan for 2D echocardiogram this a.m. 09/13: Afebrile. Weaned off norepinephrine drip. Remains on dobutamine drip at 2.5 mcg/kg/min. Denies chest pain. 4-5 L nasal cannula. 09/14: Status post clamp was urgent off-pump coronary artery bypass grafting 2 with BEAULIEU to LAD, reverse saphenous vein graft to obtuse marginal 2 of the left circumflex artery, left leg endoscopic vein harvest and intraoperative vein mapping by Dr. Byrd. Patient extubated without complication: 5 L. Remains on Dioni-Synephrine at 50 mcg/min, insulin drip at 6 units an hour and dexmedetomidine 0.2 mcg/kg/min. Subjective 09/15: Afebrile. Currently on 2 L nasal cannula. -200 cc serosanguineous from chest tube since OR. Intra aortic balloon pump currently at 1-2 ratio. Wants to get out of bed to chair 09/16: Prior to arrival for assessment this a.m. patient up out of bed early a.m. with nursing staff. Physical therapy and to evaluate patient upon initiation of standing patient was noted to have loss of coordination on the left , upper and lower extremities. This was the initial attempt at ambulation for patient postoperatively. A stroke alert was called , and initial evaluation NIHSS score initially 7, decreased sensory left upper and lower extremity and dysarthria. Vital signs stable, electrolytes within normal limits , blood glucose 122. Imaging studies pending CT brain and carotids. Dr. Humphries has been notified. Upon my evaluation, patient noted to have confusion , informed this is been baseline for the last 2 days postop . Patient informed me that she takes melatonin for sleep at night at home and has not received it since prior to surgery, having difficulty going to sleep at night. Per report last night patient had difficulty breathing O2 saturation within normal limits patient received additional nebulizer treatment. Currently the patient has a normal respiratory rate O2 saturation 95% on 2 L nasal cannula. 09/17: Patient alert and oriented 3. However, while sitting in chair next to bed the patient attempted to transfer self without assistance to bedside commode and is status post fall. No obvious injury noted,motor strength at baseline with left-sided weakness. Chest x-ray pending post fall, CT surgery notified of the event . The patient denies pain at this time, vital signs within normal limits 2 saturation 95% on room air, patient is normotensive. Objective Vital Signs Date Time Temp Pulse Resp B/P (MAP) Pulse Ox O2 Delivery O2 Flow Rate FiO2 09/17/17 13:00 91 09/17/17 11:40 97.9 18 112/58 (76) 98 09/17/17 11:40 Nasal Cannula 3.00 09/16/17 20:07 21 Intake and Output 09/17/17 09/17/17 09/17/17 07:59 15:59 23:59 Intake Total 240 ml Output Total 450 ml Balance -210 ml Result Diagram: 09/17/17 0527 09/17/17 0527 Imaging Last Impressions Neck CTA 09/16/17 0000 Signed Impressions: Service Date/Time: Saturday, September 16, 2017 09:44 - CONCLUSION: And negative for hemodynamically significant stenosis or source of emboli. Cuauhtemoc Moreno MD FACR Head CTA 09/16/17 0000 Signed Impressions: Service Date/Time: Saturday, September 16, 2017 09:44 - CONCLUSION: No evidence of embolic occlusion. Cuauhtemoc Moreno MD FACR Head CT 09/16/17 0000 Signed Impressions: Service Date/Time: Saturday, September 16, 2017 09:33 - CONCLUSION: Probable acute stroke right occipital region without hemorrhage. CTA is pending. Likely subacute right occipital lobe no no no in the left axilla that L. subacute or and is probably Cuauhtemoc Moreno MD FACR Chest X-Ray 09/16/17 0000 Signed Impressions: Service Date/Time: Saturday, September 16, 2017 07:07 - CONCLUSION: Stable chest. Cuauhtemoc Moreno MD FACR Chest CT 09/11/17 0000 Signed Impressions: Service Date/Time: Monday, September 11, 2017 21:56 - CONCLUSION: 1. Consolidation in both lower lobes left greater than right with patchy airspace disease in the upper and middle lobes. 2. Small bilateral pleural effusions. Crow Johnson MD Lower Extremity Ultrasound 09/10/17 0000 Signed Impressions: Service Date/Time: Sunday, September 10, 2017 11:58 - CONCLUSION: Venous mapping as delineated above. Matt Nugent MD Carotid Artery Ultrasound 09/10/17 0000 Signed Impressions: Service Date/Time: Sunday, September 10, 2017 11:02 - CONCLUSION: 1. A significant stenosis is not seen although there is mildly elevated peak systolic velocity in the left internal carotid artery. 2. Flow is not seen in the right vertebral artery. 3. Reversal of flow in diastole seen throughout the exam. This can be seen with cardiac issues including aortic insufficiency. 4. The absence of the right vertebral artery and the mildly elevated peak systolic velocity in the left internal iliac artery could be further evaluated with a CTA of the neck. Matt Nugent MD Last Impressions Chest X-Ray 09/16/17 0000 Signed Impressions: Service Date/Time: Saturday, September 16, 2017 07:07 - CONCLUSION: Stable chest. Cuauhtemoc Moreno MD FACR Chest CT 09/11/17 0000 Signed Impressions: Service Date/Time: Monday, September 11, 2017 21:56 - CONCLUSION: 1. Consolidation in both lower lobes left greater than right with patchy airspace disease in the upper and middle lobes. 2. Small bilateral pleural effusions. Crow Johnson MD Lower Extremity Ultrasound 09/10/17 0000 Signed Impressions: Service Date/Time: Sunday, September 10, 2017 11:58 - CONCLUSION: Venous mapping as delineated above. Matt Nugent MD Carotid Artery Ultrasound 09/10/17 0000 Signed Impressions: Service Date/Time: Sunday, September 10, 2017 11:02 - CONCLUSION: 1. A significant stenosis is not seen although there is mildly elevated peak systolic velocity in the left internal carotid artery. 2. Flow is not seen in the right vertebral artery. 3. Reversal of flow in diastole seen throughout the exam. This can be seen with cardiac issues including aortic insufficiency. 4. The absence of the right vertebral artery and the mildly elevated peak systolic velocity in the left internal iliac artery could be further evaluated with a CTA of the neck. Matt Nugent MD Last Impressions Chest X-Ray 09/15/17 0500 Signed Impressions: Service Date/Time: Friday, September 15, 2017 04:08 - CONCLUSION: 1. Cardiomegaly and findings of vascular congestion without overt failure. There has been no significant change when compared to the prior exam. Ihsan Nayak MD Chest CT 09/11/17 Signed Impressions: Service Date/Time: Monday, September 11, 2017 21:56 - CONCLUSION: 1. Consolidation in both lower lobes left greater than right with patchy airspace disease in the upper and middle lobes. 2. Small bilateral pleural effusions. Crow Johnson MD Lower Extremity Ultrasound 09/10/17 Signed Impressions: Service Date/Time: Sunday, September 10, 2017 11:58 - CONCLUSION: Venous mapping as delineated above. Matt Nugent MD Carotid Artery Ultrasound 09/10/17 Signed Impressions: Service Date/Time: Sunday, September 10, 2017 11:02 - CONCLUSION: 1. A significant stenosis is not seen although there is mildly elevated peak systolic velocity in the left internal carotid artery. 2. Flow is not seen in the right vertebral artery. 3. Reversal of flow in diastole seen throughout the exam. This can be seen with cardiac issues including aortic insufficiency. 4. The absence of the right vertebral artery and the mildly elevated peak systolic velocity in the left internal iliac artery could be further evaluated with a CTA of the neck. Matt Nugent MD Objective Remarks GENERAL: 66-year-old female currently on 3L nasal cannula in no acute distress SKIN: Warm and dry. HEAD: Atraumatic. Normocephalic. EYES: Pupils equal and round about 3 mm bilaterally and reactive. No scleral icterus. No injection or drainage. ENT: No nasal bleeding or discharge. Mucous membranes pink and moist. NECK: Trachea midline. No JVD. CARDIOVASCULAR: RRR. S1, S2. No S4. Augmentation intra-aortic balloon pump appreciated. Mediastinal/left chest tube to -20 cm H2O 200 cm serosanguineous output. RESPIRATORY: Coarse crackles appreciated bilateral lower lobes. No wheezing is appreciated. Chest tube intact no air leak noted GASTROINTESTINAL: Abdomen soft, non-tender, nondistended. Hypoactive bowel sounds appreciated MUSCULOSKELETAL: Extremities trace to 1+ bilateral lower extremity edema. No obvious deformities. Intra-aortic balloon pump in right inguinal region clean dry and intact without hematoma. Dorsalis pedis/posterior tibialis palpable bilaterally. GILDA sage B/L NEUROLOGICAL: GCS 14 patient confused , asking is she going to [facility] .Awake and alert. No gross cranial nerve deficits. Motor grossly within normal limits. Five out of 5 muscle strength in the arms and legs at this time. Normal speech. Date of Insertion: Sep 10, 2017 Line: Central Venous Catheter Side: Right Location: Internal, Jugular A/P Assessment and Plan Neuro/Psych: ICU Delirium ? Acute CVA-right occipital Acetaminophen 650 mg p.o. every 6 hours as needed fever Ofirmev 1 g IV every 6 hours [address] surgery Hydrocodone/acetaminophen 5/325 1 tablet every 4 hours as needed pain 1 through 5 Fentanyl 25 mcg every hour as needed breakthrough pain 09/16-stroke alert initiated early this a.m. secondary to loss of coordination left upper and lower extremity now with resolution. Motor strength 5/5 bilateral upper and lower extremities Patient noted to have confusion approximately last 2 days, postoperative, sleep deficit for approx 2 days Melatonin 10 mg nightly as needed for insomnia-patient normally takes at home- maintain sleep hygiene 09/16 Follow-up CT brain-acute versus subacute stroke occipital region with no hemorrhage, CTA no evidence of embolic occlusion 09/[address] Humphries CV: Postop day #3 clampless urgent off-pump coronary artery bypass graft 2 with BEAULIEU to LAD, reverse saphenous vein graft to obtuse marginal 2 branch of the left circumflex with left leg endoscopic vein harvesting intraoperative vein mapping by Dr Carson Fritz STEMI Hypotension History of hypertension Elevated CPK/troponin of greater than 40 Triglyceridemia Hyperlipidemia Received 324 mg of aspirin, 0.4 mg nitroglycerin in ED. Scheduled for aspirin 81 mg p.o. daily Scheduled for clopidogrel 75 mg mouth daily Maintain mean arterial pressure greater than 65 Echocardiogram revealed EF less than 20%. LV dysfunction. LV hypertrophy. PAP 53 mmHg. Repeat echocardiogram 09/[address] surgery recommendation revealed EF 30-35%. Continue atorvastatin 40 mg by mouth at night for dyslipidemia Dr. Boyce catheterization revealed RAD 20 mmHg. RVSP 77/18 mmHg. PAP 66/37 mmHg. Pulmonary capillary wedge pressure 47 mmHg. Cardiac output 4.3 L/min. Cardiac index 2.3 L/min/m. Left main 89% stenosis. LAD 95% stenosis. Left circumflex 50% stenosis. Intra-aortic balloon pump placed augmented at 1-1. Plan to wean in a.m. to 1-2 Carotid Dopplers lack of flow in the right vertebral. Recommended CTA if indicated. High velocities left internal carotid artery. 4/80-[id number] repeat carotid Doppler this a.m. Resp: Acute hypoxic hypercapnic respiratory failure Ongoing tobaccoism Currently on nasal cannula/simple mask to maintain saturations greater than equal to 92% Incentive spirometry while awake Albuterol/ipratropium aerosols every 6 hours with albuterol/ipratropium aerosols every 2 hours as needed for dyspnea Tobacco's educational self-education cessation booklet provided when clinically stable CT thorax 09/11 revealed small bilateral pleural effusions. Patchy infiltrates throughout bilateral lung milan Mediastinal chest tube-no air leak, serous fluid [id number] stat chest x-ray status post fall-chest tube intact, no air leak , serous drainage GI: Elevated AST Hypoalbuminemia Heart healthy diet per CT surgery Famotidine 20 mg twice daily for GI prophylaxis Docusate sodium/senna 1 tablet twice daily for bowel regimen : Phipps catheter if indicated for accurate I's and O's in a critical patient receiving diuretics Endo: Mild stress hyperglycemia Sliding scale insulin with Accu-Cheks before meals/at bedtime to maintain euglycemia/low regimen of NovoLog Noted hemoglobin A1c 5.2 and TSH 0.99 Renal: Creatinine currently within normal limits Monitor urine output while on diuretics Accurate I's and O's Heme: Normocytic anemia Thrombocytopenia Monitor CBC daily. Follow trends ID: Monitor for signs and symptoms of infection MSK: PT evaluate and treat OT eval and treat FEN: Hyponatremia Follow-up on BMP in a.m. especially since on furosemide Electrolyte CT surgery protocol initiated Scheduled 10 mEq potassium chloride p.o. twice daily while on furosemide currently on hold Access Right IJ CVL day #7 placed 09/10-discontinued 09/16 Left subclavian Cordis with dual-lumen day #2 placed in OR 09/14 Prophylaxis -GI -famotidine -DVT -SCD anticoagulation per CT surgery. Tentative plan for initiation of Coumadin therapy status removal of chest tube Level 2 Thank you for allowing participation of care care in this patient. Critical care medicine will sign off. Physician Maryellen Gambino MD Sep 17, 2017 15:07
--- NOTE | 2017-09-17 15:47 | RADRPT ---
EXAM DATE/TIME: 09/17/2017 15:04 [facility] COMPARISON: CHEST SINGLE AP, September 16, 2017, 7:07. INDICATIONS : Evaluate chest for trauma, fell MEDICAL HISTORY : Cardiovascular disease. SURGICAL HISTORY : CABG. ENCOUNTER: Subsequent ACUITY: 2 days PAIN SCORE: 0/10 LOCATION: chest FINDINGS: Interval removal of left subclavian catheter. Stable mediastinal drain and left-sided chest tube in p lace. No significant pneumothorax. Increased left lower lobe airspace disease with stable small left pleural effusion. Cardiomediastinal contours are stable. Remainder of exam is unchanged. CONCLUSION: 1. Stable mediastinal drain and left-sided chest tube. 2. Increased left lower lobe airspace disease which likely reflects atelectasis. 3. Stable small left pleural effusion. Albert Mazariegos MD on September 17, 2017 at 15:43 Board Certified Radiologist. This report was verified electronically.
[2017-09-17] MEDS ORDERED: WARFARIN SOD 5 MG TAB PO SCH (16:00)
[2017-09-17] MEDS: ATORVASTATIN 40 MG TAB PO SCH (21:49)
[2017-09-17] MEDS: MELATONIN 5 MG TAB PO PRN (21:50)
[2017-09-17] MEDS: SENNOSIDES 8.6 MG TAB PO SCH (21:52)
[2017-09-18] VITALS (26 sets, daily range): BP systolic 123–136; BP diastolic 60–65; PULSE 76–108; RESP 16–20; TEMP 97.6–98.2; O2SAT 94–99
[2017-09-18 04:08] LABS: HEMOGLOBIN 9.4 GM/DL (11.6-15.3); MEAN CELL VOLUME 99.2 FL (80.0-100.0); MEAN CORPUSCULAR HEMOGLOBIN 34.6 PG (27.0-34.0); MEAN CORPUSCULAR HGB CONC 34.9 % (32.0-36.0); MEAN PLATELET VOLUME 8.3 FL (7.0-11.0); PLATELET COUNT 306 TH/MM3 (150-450); RED BLOOD COUNT 2.72 MIL/MM3 (4.00-5.30); RED CELL DISTRIBUTION WIDTH 13.6 % (11.6-17.2); WHITE BLOOD COUNT 8.9 TH/MM3 (4.0-11.0)
[2017-09-18 04:12] LABS: INTERNATIONAL NORMALIZED RATIO 1.1 RATIO; PROTHROMBIN TIME - PATIENT 10.9 SEC (9.8-11.6)
[2017-09-18] MEDS: POLYETHYLENE GLYCOL 17 GM PKG PO SCH (08:54)
[2017-09-18] MEDS: MAGNESIUM HYDROXIDE SUSP 30 ML CUP PO SCH (08:54)
[2017-09-18] MEDS: LACTULOSE SYRUP 20 GM/30 ML CUP PO PRN (08:54)
[2017-09-18] MEDS: SODIUM CHLORIDE 0.9% FLUSH 10 ML FLUSH IV FLUSH SCH ×2 (08:55→21:33)
[2017-09-18] MEDS: FAMOTIDINE 20 MG TAB PO SCH ×2 (08:55→21:33)
[2017-09-18] MEDS: ASPIRIN 81 MG CHEW TAB PO SCH (08:55)
[2017-09-18] MEDS: CLOPIDOGREL 75 MG TAB PO SCH (08:55)
[2017-09-18] MEDS: MULTIVITAMINS/MINERALS THERAPEUTIC TAB PO SCH (08:55)
[2017-09-18] MEDS: DOCUSATE SODIUM 100 MG CAP PO SCH ×2 (08:55→21:33)
[2017-09-18] MEDS: METOPROLOL TARTRATE 25 MG TAB PO SCH ×2 (12:37→21:34)
[2017-09-18] MEDS: WARFARIN SOD 5 MG TAB PO SCH (15:05)
--- NOTE | 2017-09-18 16:18 | PD.CAR.PN ---
CVT Progress Note Subjective/Hospital Course: 66-year-old female who presented to the emergency room on 09/09/2017, brought in emergently with chest pain also radiating down her left arm, possible STEMI Alert with a 12-lead EKG changes, has not had any primary care followup in many years. Pain had been going on for 2 days prior to ER admission, was complaining of shortness of breath, was found to be somewhat tachycardic, tachypneic, hypotensive. She thought initially that it was heartburn-type symptoms. Initial EKG showed ST elevation in V1, V2; however, there were some Q -waves in the precordial leads, with poor R-wave progression. The patient was admitted to the intensive care unit, was started on a heparin drip, nitro drip. She was found to be hypoxic, hypercapnic respiratory failure, history of tobacco abuse. She underwent cardiac catheterization today by Dr. Boyce which showed left main had an ostial 80-90% stenosis, was heavily calcified at the bifurcation of the left anterior descending and left circumflex artery. The LAD was subtotally occluded with a 95% stenosis. The circ had a 50% eccentric stenosis. The right coronary artery was nondominant. EF was approximately 25- 30%, global hypokinesis, mostly pronounced in the anterolateral apical and inferior lateral apical distribution. She also had some stenosis in the left subclavian artery 30%. Due to the high grade left main disease and LAD, she had an intraaortic balloon pump placed. She also underwent right-sided heart catheterization, which showed right atrial pressures of 20, RV pressure is 77/18, pulmonary capillary wedge pressure measured at 47. Cardiac output of 4.3 with an index of 2.3. During the course of the cardiac catheterization, she was also placed on a Levophed drip and a dobutamine drip in addition to the intraaortic balloon pump in the right groin at a 1:1 augmentation. We were consulted to evaluate for coronary artery bypass grafting. The patient also had a 2D echocardiogram, which showed EF of less than 20%, mild mitral regurgitation, trace tricuspid regurgitation. 4/10 breathing better per pt no chest pain, only some back discomfort, IABP right groin 1:1 augmentation remains on dobutamine at 2.5mcq, and levophed at 7 mcq lasix bid , for repeat ECHO in am remains on 8 liter simple mask timing for surgery per Dr Byrd 09/12 EF 30-35% scheduled for surgery on sunday Dr Byrd spoke with pt and daughter off Levo gtt , on heparin and dobutamine IABP 1: 1 right groin , consider weaning dobutamine / and or augmentation 09/13 weaning off Dobutamine, continue IABP 1:1 for surgery in am weaning 02 slowly 09/14 SURGICAL PROCEDURE 1. Clampless Urgent Off-pump Coronary Artery Bypass Grafting x 2 with Left Internal Mammary Artery (BEAULIEU) to Left Anterior Descending (LAD), reverse saphenous vein graft to the Obtuse Marginal 2 (OM2) branch of the Left Circumflex artery 2. Left Leg Endoscopic Vein [place] 3. Intraoperative Vein Mapping 09/15 Doing well. Hemodynamically stable. D/C IABP today Pulmonary Toiletry Transfer telemetry tomorrow 09/16 Morning's events noted. Left sided weakness. CT with new CVA Appreciate CCM and Neurology input. Will add Coumadin tomorrow following removal of CT Keep in CVICU. Alert and appropriately responsive 09/17 chest tube drained 140cc/ 12 hrs eval for removal later today left sided weakness, speech improved, strength improved, will need inpt stroke rehab placement start Coumadin when chest tubes out/ goal 2.-2.5 Speech/ OT/ PT 09/18 chest tube dc, start coumadin today goal 2-2.5 will need to start low dose keaton started on bb speech improved, left sided weakness 4/5 ( left leg weaker than arm) Objective: Vital Signs Date Time Temp Pulse Resp B/P (MAP) Pulse Ox O2 Delivery O2 Flow Rate FiO2 09/18/17 16:00 100 09/18/17 15:00 97.6 79 16 123/60 (81) 99 09/18/17 15:00 99 Room Air 09/18/17 15:00 84 09/18/17 14:00 82 09/18/17 13:00 100 09/18/17 12:00 98 09/18/17 11:36 95 21 09/18/17 11:00 95 Room Air 09/18/17 11:00 97.7 100 18 136/64 (88) 95 09/18/17 11:00 100 09/18/17 10:00 98 09/18/17 09:00 98 09/18/17 08:00 100 09/18/17 07:05 98.2 97 20 135/65 (88) 94 09/18/17 07:05 88 09/18/17 07:05 94 Room Air 09/18/17 06:00 85 09/18/17 05:00 86 09/18/17 04:12 97.7 91 18 130/60 (83) 94 09/18/17 04:12 94 Room Air 09/18/17 04:00 96 09/18/17 03:00 97 09/18/17 02:00 108 09/18/17 01:00 106 09/18/17 00:00 100 09/17/17 23:20 93 Room Air 09/17/17 23:20 98.3 100 18 130/59 (82) 93 09/17/17 23:00 102 09/17/17 22:00 106 09/17/17 21:00 110 09/17/17 20:00 106 09/17/17 19:58 93 Room Air 09/17/17 19:58 98.7 105 18 120/57 (78) 93 09/17/17 19:33 97 09/17/17 19:00 106 09/17/17 18:00 88 09/17/17 17:00 103 Result Diagram: 09/18/17 0348 09/17/17 0527 (1) ST elevation AK (STEMI) Plan: on ASA, BB, statin start Coumadin eval for inpt rehab ot/speech for cognitive eval and continue PT pulm toileting (2) History of hypertension (3) Tobacco abuse Plan: smoking cessation (4) Congestive heart failure Plan: gentle diuresis Problem Qualifiers (1) ST elevation AK (STEMI): Qualified Codes: I21.02 - ST elevation (STEMI) myocardial infarction involving left anterior descending coronary artery (2) Congestive heart failure: Qualified Codes: I50.9 - Heart failure, unspecified Danni Bales Sep 18, 2017 16:18
--- NOTE | 2017-09-18 17:22 | ECHRPT ---
Indication: CONCLUSIONS The left ventricular systolic function is moderately reduced with an estimated ejection fraction in the range of 30-35%. Distal anteroseptal hypokinesis. Mitral anular calcification. BP: 135 / 65 HR: 88 Rhythm: MEASUREMENTS (Male / Female) Normal Values Technical Quality:Technically difficult study 2D ECHO LV Ejection Fraction MOD BP 37.1 % >= 55 % LV Ejection Fraction MOD 4C 36.1 % LV Ejection Fraction 4C AL 36.5 % LV Ejection Fraction MOD 2C 31.4 % LV Ejection Fraction 2C AL 30.9 % FINDINGS LEFT VENTRICLE The left ventricular systolic function is severely reduced with an estimated ejection fraction in th e range of 30-35%. regional wall motion abnormalities are present. RIGHT VENTRICLE Normal right ventricular size and systolic function. LEFT ATRIUM The left atrial size is normal. RIGHT ATRIUM The right atrial size is normal. PULMONARY VALVE The pulmonary valve is not well visualized. VESSELS The inferior vena cava was not well visualized. PERICARDIUM No pericardial effusion. Kristen Carlos MD, FACC (Electronically Signed) Final Date:18 September 2017 17:21
[2017-09-18] MEDS: SENNOSIDES 8.6 MG TAB PO SCH (21:33)
[2017-09-18] MEDS: ATORVASTATIN 40 MG TAB PO SCH (21:34)
[2017-09-19] VITALS (15 sets, daily range): BP systolic 119–139; BP diastolic 59–65; PULSE 78–103; RESP 18; TEMP 98.1–98.6; O2SAT 93–98
--- NOTE | 2017-09-19 04:07 | RADRPT ---
EXAM DATE/TIME: 09/19/2017 03:29 [facility] COMPARISON: CHEST SINGLE AP, September 17, 2017, 15:04. INDICATIONS : Short of breath. MEDICAL HISTORY : Cardiovascular disease. SURGICAL HISTORY : CABG. ENCOUNTER: Subsequent ACUITY: 3 days PAIN SCORE: 0/10 LOCATION: Bilateral chest FINDINGS: Minimal bibasilar consolidation, much improved. Mediastinal drain and left chest tube out. No signifi cant effusion seen. No pneumothorax. Heart size stable, within normal limits. CONCLUSION: Improving bibasilar consolidation, now minimal. Mediastinal drain and left chest tube out. No pneumot horax. Matt Mccauley MD on September 19, 2017 at 4:05 Board Certified Radiologist. This report was verified electronically.
[2017-09-19 05:20] LABS: INTERNATIONAL NORMALIZED RATIO 1.3 RATIO; PROTHROMBIN TIME - PATIENT 13.2 SEC (9.8-11.6)
[2017-09-19] MEDS: RESP: ALBUTEROL 2.5 MG/IPRATROPIUM 0.5 MG NEB (PRN) NEB (10:12)
[2017-09-19] MEDS: DOCUSATE SODIUM 100 MG CAP PO SCH ×2 (10:24→22:05)
[2017-09-19] MEDS: MAGNESIUM HYDROXIDE SUSP 30 ML CUP PO SCH (10:24)
[2017-09-19] MEDS: FAMOTIDINE 20 MG TAB PO SCH ×2 (10:24→22:05)
[2017-09-19] MEDS: POLYETHYLENE GLYCOL 17 GM PKG PO SCH (10:24)
[2017-09-19] MEDS: ASPIRIN 81 MG CHEW TAB PO SCH (10:24)
[2017-09-19] MEDS: MULTIVITAMINS/MINERALS THERAPEUTIC TAB PO SCH (10:24)
[2017-09-19] MEDS: METOPROLOL TARTRATE 25 MG TAB PO SCH ×2 (10:24→22:05)
[2017-09-19] MEDS: SODIUM CHLORIDE 0.9% FLUSH 10 ML FLUSH IV FLUSH SCH ×2 (10:25→22:05)
[2017-09-19] MEDS: RAMIPRIL 1.25 MG CAP PO SCH (11:37)
--- NOTE | 2017-09-19 12:56 | HHI.DS ---
Discharge Summary Admission Date Sep 09, 2017 at 11:[address] elevation OR, Q wave OR, congestive heart failure, respiratory to (1) ST elevation OR (STEMI) Diagnosis: Principal ICD Codes: I21.3 - ST elevation (STEMI) myocardial infarction of unspecified site Status: Acute (2) Acute respiratory failure with hypoxia and hypercapnia Diagnosis: Principal ICD Codes: J96.01 - Acute respiratory failure with hypoxia; J96.02 - Acute respiratory failure with hypercapnia (3) Hypotension Diagnosis: Principal ICD Codes: I95.9 - Hypotension, unspecified (4) History of hypertension Diagnosis: Secondary ICD Codes: Z86.79 - Personal history of other diseases of the circulatory system (5) Elevated CPK Diagnosis: Principal ICD Codes: R74.8 - Abnormal levels of other serum enzymes (6) Elevated troponin Diagnosis: Principal ICD Codes: R74.8 - Abnormal levels of other serum enzymes (7) Hyponatremia Diagnosis: Secondary ICD Codes: E87.1 - Hypo-osmolality and hyponatremia (8) Macrocytosis without anemia Diagnosis: Secondary ICD Codes: D75.89 - Other specified diseases of blood and blood-forming organs (9) Leukocytosis Diagnosis: Secondary ICD Codes: D72.829 - Elevated white blood cell count, unspecified (10) Tobacco abuse Diagnosis: Principal ICD Codes: Z72.0 - Tobacco use (11) Acute Q wave myocardial infarction Diagnosis: Secondary ICD Codes: I21.3 - ST elevation (STEMI) myocardial infarction of unspecified site Status: Acute (12) Hyperglycemia Diagnosis: Principal ICD Codes: R73.9 - Hyperglycemia, unspecified (13) SIRS due to non-infectious process without acute organ dysfunction Diagnosis: Principal ICD Codes: R65.10 - Systemic inflammatory response syndrome (SIRS) of non- infectious origin without acute organ dysfunction Status: Resolved (14) Acute right PLANT MANAGER stroke Diagnosis: Principal ICD Codes: I63.531 - Cerebral infarction due to unspecified occlusion or stenosis of right posterior cerebral artery Status: Acute Procedures 09/14 1. Clampless Urgent Off-pump Coronary Artery Bypass Grafting x 2 with Left Internal Mammary Artery (BEAULIEU) to Left Anterior Descending (LAD), reverse saphenous vein graft to the Obtuse Marginal 2 (OM2) branch of the Left Circumflex artery 2. Left Leg Endoscopic Vein Matthews 3. Intraoperative Vein Mapping Brief History 66-year-old female who presented to the emergency room on 09/09/2017, brought in emergently with chest pain also radiating down her left arm, possible STEMI Alert with a 12-lead EKG changes, has not had any primary care followup in many years. Pain had been going on for 2 days prior to ER admission, was complaining of shortness of breath, was found to be somewhat tachycardic, tachypneic, hypotensive. She thought initially that it was heartburn-type symptoms. Initial EKG showed ST elevation in V1, V2; however, there were some Q -waves in the precordial leads, with poor R-wave progression. The patient was admitted to the intensive care unit, was started on a heparin drip, nitro drip. She was found to be hypoxic, hypercapnic respiratory failure, history of tobacco abuse. She underwent cardiac catheterization today by Dr. Boyce which showed left main had an ostial 80-90% stenosis, was heavily calcified at the bifurcation of the left anterior descending and left circumflex artery. The LAD was subtotally occluded with a 95% stenosis. The circ had a 50% eccentric stenosis. The right coronary artery was nondominant. EF was approximately 25- 30%, global hypokinesis, mostly pronounced in the anterolateral apical and inferior lateral apical distribution. She also had some stenosis in the left subclavian artery 30%. Due to the high grade left main disease and LAD, she had an intraaortic balloon pump placed. She also underwent right-sided heart catheterization, which showed right atrial pressures of 20, RV pressure is 77/18, pulmonary capillary wedge pressure measured at 47. Cardiac output of 4.3 with an index of 2.3. During the course of the cardiac catheterization, she was also placed on a Levophed drip and a dobutamine drip in addition to the intraaortic balloon pump in the right groin at a 1:1 augmentation. We were consulted to evaluate for coronary artery bypass grafting. The patient also had a 2D echocardiogram, which showed EF of less than 20%, mild mitral regurgitation, trace tricuspid regurgitation. CBC/BMP: 09/18/17 0348 09/17/17 0527 Significant Findings Laboratory Tests Test 09/17/17 05:27 09/17/17 12:10 09/18/17 03:48 09/19/17 04:44 Red Blood Count 2.66 MIL/MM3 (4.00-5.30) 2.72 MIL/MM3 (4.00-5.30) Hemoglobin 9.2 GM/DL (11.6-15.3) 9.4 GM/DL (11.6-15.3) Hematocrit 26.4 % (35.0-46.0) 27.0 % (35.0-46.0) Mean Corpuscular Hemoglobin 34.7 PG (27.0-34.0) 34.6 PG (27.0-34.0) Creatinine 0.46 MG/DL (0.50-1.00) Prothrombin Time 13.2 SEC (9.8-11.6) Imaging Last Impressions Chest X-Ray 09/19/17 0600 Signed Impressions: Service Date/Time: Tuesday, September 19, 2017 03:29 - CONCLUSION: Improving bibasilar consolidation, now minimal. Mediastinal drain and left chest tube out. No pneumothorax. Matt Mccauley MD Neck CTA 09/16/17 0000 Signed Impressions: Service Date/Time: Saturday, September 16, 2017 09:44 - CONCLUSION: And negative for hemodynamically significant stenosis or source of emboli. Cuauhtemoc Moreno MD FACR Head CTA 09/16/17 0000 Signed Impressions: Service Date/Time: Saturday, September 16, 2017 09:44 - CONCLUSION: No evidence of embolic occlusion. Cuauhtemoc Moreno MD FACR Head CT 09/16/17 0000 Signed Impressions: Service Date/Time: Saturday, September 16, 2017 09:33 - CONCLUSION: Probable acute stroke right occipital region without hemorrhage. CTA is pending. Likely subacute right occipital lobe no no no in the left axilla that L. subacute or and is probably Cauuhtemoc Moreno MD FACR Chest CT 09/11/17 0000 Signed Impressions: Service Date/Time: Monday, September 11, 2017 21:56 - CONCLUSION: 1. Consolidation in both lower lobes left greater than right with patchy airspace disease in the upper and middle lobes. 2. Small bilateral pleural effusions. Crow Johnson MD Lower Extremity Ultrasound 09/10/17 0000 Signed Impressions: Service Date/Time: Sunday, September 10, 2017 11:58 - CONCLUSION: Venous mapping as delineated above. Matt Nugent MD Carotid Artery Ultrasound 09/10/17 0000 Signed Impressions: Service Date/Time: Sunday, September 10, 2017 11:02 - CONCLUSION: 1. A significant stenosis is not seen although there is mildly elevated peak systolic velocity in the left internal carotid artery. 2. Flow is not seen in the right vertebral artery. 3. Reversal of flow in diastole seen throughout the exam. This can be seen with cardiac issues including aortic insufficiency. 4. The absence of the right vertebral artery and the mildly elevated peak systolic velocity in the left internal iliac artery could be further evaluated with a CTA of the neck. Matt Nugent MD PE at Discharge GENERAL: A&O x 3 SKIN: Warm and dry. prevena dressing to chest , incision intact to leg HEAD: Atraumatic. Normocephalic. EYES: Pupils equal and round. No scleral icterus. No injection or drainage. ENT: No nasal bleeding or discharge. Mucous membranes pink and moist. NECK: Trachea midline. No JVD. CARDIOVASCULAR: Regular rate and rhythm. RESPIRATORY: No accessory muscle use. Clear to auscultation. Breath sounds equal bilaterally. GASTROINTESTINAL: Abdomen soft, non-tender, nondistended. Hepatic and splenic margins not palpable. MUSCULOSKELETAL: Extremities without clubbing, cyanosis, or edema. No obvious deformities. NEUROLOGICAL: Awake and alert. No obvious cranial nerve deficits. Motor grossly within normal limits. 4/5 left upper and lower ext . Normal speech. PSYCHIATRIC: Appropriate mood and affect; insight and judgment normal. Hospital Course 09/11 breathing better per pt no chest pain, only some back discomfort, IABP right groin 1:1 augmentation remains on dobutamine at 2.5mcq, and levophed at 7 mcq lasix bid , for repeat ECHO in am remains on 8 liter simple mask timing for surgery per Dr Byrd 09/12 EF 30-35% scheduled for surgery on sunday Dr Byrd spoke with pt and daughter off Levo gtt , on heparin and dobutamine IABP 1: 1 right groin , consider weaning dobutamine / and or augmentation 09/13 weaning off Dobutamine, continue IABP 1:1 for surgery in am weaning 02 slowly 09/14 SURGICAL PROCEDURE 1. Clampless Urgent Off-pump Coronary Artery Bypass Grafting x 2 with Left Internal Mammary Artery (BEAULIEU) to Left Anterior Descending (LAD), reverse saphenous vein graft to the Obtuse Marginal 2 (OM2) branch of the Left Circumflex artery 2. Left Leg Endoscopic Vein Matthews 3. Intraoperative Vein Mapping 09/15 Doing well. Hemodynamically stable. D/C IABP today Pulmonary Toiletry Transfer telemetry tomorrow 09/16 Morning's events noted. Left sided weakness. CT with new CVA Appreciate CCM and Neurology input. Will add Coumadin tomorrow following removal of CT Keep in CVICU. Alert and appropriately responsive 09/17 chest tube drained 140cc/ 12 hrs eval for removal later today left sided weakness, speech improved, strength improved, will need inpt stroke rehab placement start Coumadin when chest tubes out/ goal 2.-2.5 Speech/ OT/ PT 09/18 chest tube dc, start coumadin today goal 2-2.5 will need to start low dose keaton started on bb speech improved, left sided weakness 09/06 ( left leg weaker than arm) 09/19 BB increased, on coumadin, goal 2-2.5 per Neuro, also on ASA speech improved, stable for transfer to rehab Pt Condition on Discharge: Fair Discharge Disposition: Rehab Inpatient Discharge Instructions DIET: Follow Instructions for: Heart Healthy Diet, Coumadin (Warfarin) Diet Activities you can perform: Full Weight Bearing, Shower Only-No Bath Activities to avoid: Strenuous Activity, Driving Additional Activity Instructio: no lifting > 8 lbs or gallon of milk Follow up Referrals: Cardiology - 4 Weeks with Manuel Boyce MD PCP Follow-up - 2-3 Days with [facility] - 2 Weeks with Danni Bales New Medications: Aspirin (Tgt Aspirin) 81 Mg Chw 81 MG PO DAILY for Blood Clot Prevention, #30 EA 2 Refills Atorvastatin (Atorvastatin) 40 Mg Tab 40 MG PO HS for Cholesterol Management, #30 TAB 2 Refills Docusate Sodium (Dok) 100 Mg Cap 100 MG PO BID for Constipation, #60 CAP 0 Refills Famotidine (Famotidine) 20 Mg Tab 20 MG PO DAILY for GERD, #30 TAB 2 Refills Hydrocodone/Acetaminophen (Hydrocodone-Acetamin 5-325 mg) 5 Mg-325 Mg Tablet 1 TAB PO Q4H PRN for PAIN SCALE 1 TO 5, #30 TAB 0 Refills Melatonin (Melatonin) 5 Mg Tab 10 MG PO HS PRN for INSOMNIA, #30 TAB 2 Refills Metoprolol Tartrate (Metoprolol Tartrate) 25 Mg Tab 25 MG PO Q12HR for Blood Pressure Management, #60 TAB 2 Refills Multiple Vitamins W/ Minerals (Thera M Plus) 1 Tab 1 TAB PO DAILY for multi vitamin, #30 TAB 2 Refills Ramipril (Altace) 1.25 Mg Cap 1.25 MG PO DAILY for Blood Pressure Management, #30 CAP 2 Refills Warfarin (Coumadin) 5 Mg Tab 5 MG PO DAILY@1600 for ischemic stroke , #30 TAB 2 Refills INR goal 2-2.5/ hold INR >3 Danni Bales Sep 19, 2017 12:56
[2017-09-19] MEDS ORDERED: METO25TA3 PO (12:57)
[2017-09-19] MEDS: WARFARIN SOD 5 MG TAB PO SCH (17:37)
[2017-09-19] MEDS: SENNOSIDES 8.6 MG TAB PO SCH (22:05)
[2017-09-19] MEDS: ATORVASTATIN 40 MG TAB PO SCH (22:05)
[2017-09-20] VITALS (22 sets, daily range): BP systolic 118–143; BP diastolic 59–67; PULSE 78–94; RESP 18; TEMP 98.1–98.7; O2SAT 93–95
[2017-09-20 04:54] LABS: INTERNATIONAL NORMALIZED RATIO 1.8 RATIO; PROTHROMBIN TIME - PATIENT 18.2 SEC (9.8-11.6)
[2017-09-20] MEDS: MULTIVITAMINS/MINERALS THERAPEUTIC TAB PO SCH (08:37)
[2017-09-20] MEDS: ASPIRIN 81 MG CHEW TAB PO SCH (08:37)
[2017-09-20] MEDS: METOPROLOL TARTRATE 25 MG TAB PO SCH (08:37)
[2017-09-20] MEDS: RAMIPRIL 1.25 MG CAP PO SCH (08:37)
[2017-09-20] MEDS: FAMOTIDINE 20 MG TAB PO SCH (08:37)
[2017-09-20] MEDS: MAGNESIUM HYDROXIDE SUSP 30 ML CUP PO SCH (08:38)
[2017-09-20] MEDS: POLYETHYLENE GLYCOL 17 GM PKG PO SCH (08:38)
[2017-09-20] MEDS: DOCUSATE SODIUM 100 MG CAP PO SCH (08:38)
[2017-09-20] MEDS: SODIUM CHLORIDE 0.9% FLUSH 10 ML FLUSH IV FLUSH SCH (09:00)
[2017-09-20] MEDS ORDERED: PANTOPRAZOLE SODIUM 40 MG VIAL IV PUSH ONE (11:00)
[2017-09-20] MEDS ORDERED: diphenhydrAMINE HCL 25 MG CAP PO ONE (11:00)
[2017-09-20] MEDS ORDERED: HYDROCORTISONE 1% CREAM 30 GM TOPICAL SCH (11:00)
[2017-09-20] MEDS ORDERED: FAMOTIDINE 20 MG/2 ML VIAL IV PUSH SCH (11:00)
[2017-09-20] MEDS ORDERED: methylPREDNISolone SOD SUCC 125 MG/2 ML VIAL IV PUSH ONE (11:00)
[2017-09-20] MEDS ORDERED: DOCU1CAP39 PO (11:10)
[2017-09-20] MEDS ORDERED: ALTA1.256 PO (11:10)
[2017-09-20] MEDS ORDERED: METO25TA3 PO (11:10)
[2017-09-20] MEDS ORDERED: FAMO20TA2 PO (11:10)
[2017-09-20] MEDS ORDERED: COUM5TAB PO (11:10)
[2017-09-20] MEDS ORDERED: ASPI81 PO (11:10)
[2017-09-20] MEDS ORDERED: TRAM50 PO (11:10)
[2017-09-20] MEDS ORDERED: MELA5 PO (11:10)
[2017-09-20] MEDS ORDERED: THERM PO (11:10)
[2017-09-20] MEDS ORDERED: ATOR40TA16 PO (11:10)
[2017-09-20] MEDS ORDERED: HYDR1CRE TOPICAL (11:10)
[2017-09-20] MEDS ORDERED: BENA25CA4 PO (11:10)
--- NOTE | 2017-09-20 15:41 | PD.CAR.PN ---
CVT Progress Note Subjective/Hospital Course: 66-year-old female who presented to the emergency room on 09/09/2017, brought in emergently with chest pain also radiating down her left arm, possible STEMI Alert with a 12-lead EKG changes, has not had any primary care followup in many years. Pain had been going on for 2 days prior to ER admission, was complaining of shortness of breath, was found to be somewhat tachycardic, tachypneic, hypotensive. She thought initially that it was heartburn-type symptoms. Initial EKG showed ST elevation in V1, V2; however, there were some Q -waves in the precordial leads, with poor R-wave progression. The patient was admitted to the intensive care unit, was started on a heparin drip, nitro drip. She was found to be hypoxic, hypercapnic respiratory failure, history of tobacco abuse. She underwent cardiac catheterization today by Dr. Boyce which showed left main had an ostial 80-90% stenosis, was heavily calcified at the bifurcation of the left anterior descending and left circumflex artery. The LAD was subtotally occluded with a 95% stenosis. The circ had a 50% eccentric stenosis. The right coronary artery was nondominant. EF was approximately 25- 30%, global hypokinesis, mostly pronounced in the anterolateral apical and inferior lateral apical distribution. She also had some stenosis in the left subclavian artery 30%. Due to the high grade left main disease and LAD, she had an intraaortic balloon pump placed. She also underwent right-sided heart catheterization, which showed right atrial pressures of 20, RV pressure is 77/18, pulmonary capillary wedge pressure measured at 47. Cardiac output of 4.3 with an index of 2.3. During the course of the cardiac catheterization, she was also placed on a Levophed drip and a dobutamine drip in addition to the intraaortic balloon pump in the right groin at a 1:1 augmentation. We were consulted to evaluate for coronary artery bypass grafting. The patient also had a 2D echocardiogram, which showed EF of less than 20%, mild mitral regurgitation, trace tricuspid regurgitation. 4/10 breathing better per pt no chest pain, only some back discomfort, IABP right groin 1:1 augmentation remains on dobutamine at 2.5mcq, and levophed at 7 mcq lasix bid , for repeat ECHO in am remains on 8 liter simple mask timing for surgery per Dr Byrd 09/12 EF 30-35% scheduled for surgery on sunday Dr Byrd spoke with pt and daughter off Levo gtt , on heparin and dobutamine IABP 1: 1 right groin , consider weaning dobutamine / and or augmentation 09/13 weaning off Dobutamine, continue IABP 1:1 for surgery in am weaning 02 slowly 09/14 SURGICAL PROCEDURE 1. Clampless Urgent Off-pump Coronary Artery Bypass Grafting x 2 with Left Internal Mammary Artery (BEAULIEU) to Left Anterior Descending (LAD), reverse saphenous vein graft to the Obtuse Marginal 2 (OM2) branch of the Left Circumflex artery 2. Left Leg Endoscopic Vein [place]statula 3. Intraoperative Vein Mapping 09/15 Doing well. Hemodynamically stable. D/C IABP today Pulmonary Toiletry Transfer telemetry tomorrow 09/16 Morning's events noted. Left sided weakness. CT with new CVA Appreciate CCM and Neurology input. Will add Coumadin tomorrow following removal of CT Keep in CVICU. Alert and appropriately responsive 09/17 chest tube drained 140cc/ 12 hrs eval for removal later today left sided weakness, speech improved, strength improved, will need inpt stroke rehab placement start Coumadin when chest tubes out/ goal 2.-2.5 Speech/ OT/ PT 09/18 chest tube dc, start coumadin today goal 2-2.5 will need to start low dose keaton started on bb speech improved, left sided weakness 4/5 ( left leg weaker than arm) 09/20 waiting on rehab placement developed contact type rash on trunk, showered and gown changed, solumedrol benadryl pepcid given with much improvement norco dc Objective: GENERAL: alert and oriented SKIN: Warm and dry. prevena dressing to chest , pruritic raised rash to trunk and upper arms/ ? contact HEAD: Normocephalic. EYES: No scleral icterus. No injection or drainage. NECK: Supple, trachea midline. No JVD or lymphadenopathy. CARDIOVASCULAR: Regular rate and rhythm without murmurs, gallops, or rubs. RESPIRATORY: Breath sounds equal bilaterally. No accessory muscle use. GASTROINTESTINAL: Abdomen soft, non-tender, nondistended. MUSCULOSKELETAL: No cyanosis, or edema. BACK: Nontender without obvious deformity. No CVA tenderness. Vital Signs Date Time Temp Pulse Resp B/P (MAP) Pulse Ox O2 Delivery O2 Flow Rate FiO2 09/20/17 13:00 88 09/20/17 12:00 86 09/20/17 11:16 98.1 93 18 130/60 (83) 94 09/20/17 11:00 90 09/20/17 10:00 84 09/20/17 09:00 90 09/20/17 08:15 98.6 93 18 138/63 (88) 93 09/20/17 08:00 88 09/20/17 08:00 94 21 09/20/17 07:01 88 09/20/17 06:17 87 09/20/17 05:07 84 09/20/17 04:47 98.7 91 129/59 (82) 93 09/20/17 04:46 78 09/20/17 03:18 85 09/20/17 02:16 86 09/20/17 01:16 80 09/20/17 00:15 98.6 83 118/61 (80) 93 09/20/17 00:00 81 09/19/17 23:00 82 09/19/17 22:00 78 09/19/17 21:11 21 09/19/17 20:17 89 09/19/17 19:00 98.2 87 139/63 (88) 98 09/19/17 19:00 87 09/19/17 17:32 98.6 88 18 138/65 (89) 96 Labs: Laboratory Tests Test 09/20/17 04:35 Prothrombin Time 18.2 SEC (9.8-11.6) Prothromb Time International Ratio 1.8 RATIO Result Diagram: 09/18/17 0348 09/17/17 0527 (1) ST elevation [place] (STEMI) Plan: on ASA, BB, statin Coumadin eval for inpt rehab ot/speech for cognitive eval and continue PT pulm toileting (2) History of hypertension (3) Tobacco abuse Plan: smoking cessation (4) Congestive heart failure Plan: gentle diuresis (5) Acute right HAND PACKAGER stroke Plan: stroke rehab/ on coumadin Problem Qualifiers (1) ST elevation FL (STEMI): Qualified Codes: I21.02 - ST elevation (STEMI) myocardial infarction involving left anterior descending coronary artery (2) Congestive heart failure: Qualified Codes: I50.9 - Heart failure, unspecified Danni Bales Sep 20, 2017 15:41
[2017-09-20] MEDS ORDERED: METOPROLOL TARTRATE 25 MG TAB PO SCH (21:00)
== END 2017-09-20 16:40 | DRG 233 ==
LOC: NEPC 10:12 → NEDA 11:59 → HIME 16:05 → HCPC 09-10 09:39 → HCVI 09-10 10:20 → HCPC 09-17 11:14
PROVIDERS: ADMIT Thoracic Surgery (Cardiothoracic Vascular Surgery); ATTEND Thoracic Surgery (Cardiothoracic Vascular Surgery)
PROC: 5A09357 Assistance with Respiratory Ventilation, Less than 24 Consecutive Hours, Continuous Positive Airway Pressure (ICD-10-PCS; 2017-09-09)
PROC: 4A023N8 Measurement of Cardiac Sampling and Pressure, Bilateral, Percutaneous Approach (ICD-10-PCS; 2017-09-10)
PROC: 5A02210 Assistance with Cardiac Output using Balloon Pump, Continuous (ICD-10-PCS; 2017-09-10)
PROC: 02HV33Z Insertion of Infusion Device into Superior Vena Cava, Percutaneous Approach (ICD-10-PCS; 2017-09-10)
PROC: B2111ZZ Fluoroscopy of Multiple Coronary Arteries using Low Osmolar Contrast (ICD-10-PCS; 2017-09-10)
PROC: 021009W Bypass Coronary Artery, One Artery from Aorta with Autologous Venous Tissue, Open Approach (ICD-10-PCS; 2017-09-14)
PROC: 06BQ4ZZ Excision of Left Saphenous Vein, Percutaneous Endoscopic Approach (ICD-10-PCS; 2017-09-14)
PROC: B246ZZ4 Ultrasonography of Right and Left Heart, Transesophageal (ICD-10-PCS; 2017-09-14)
PROC: 02100Z9 Bypass Coronary Artery, One Artery from Left Internal Mammary, Open Approach (ICD-10-PCS; principal; 2017-09-14 07:22)
DX: I21.02 ST elevation (STEMI) myocardial infarction involving left anterior descending coronary artery (principal); I63.531 Cerebral infarction due to unspecified occlusion or stenosis of right posterior cerebral artery; R57.0 Cardiogenic shock; I11.0 Hypertensive heart disease with heart failure; J96.01 Acute respiratory failure with hypoxia; J96.02 Acute respiratory failure with hypercapnia; R65.10 Systemic inflammatory response syndrome (SIRS) of non-infectious origin without acute organ dysfunction; I50.9 Heart failure, unspecified; I31.3 Pericardial effusion (noninflammatory); D69.6 Thrombocytopenia, unspecified; E87.1 Hypo-osmolality and hyponatremia; G81.94 Hemiplegia, unspecified affecting left nondominant side; I27.20 Pulmonary hypertension, unspecified; F17.210 Nicotine dependence, cigarettes, uncomplicated; I25.10 Atherosclerotic heart disease of native coronary artery without angina pectoris; I25.5 Ischemic cardiomyopathy; I70.0 Atherosclerosis of aorta; R00.0 Tachycardia, unspecified; F41.9 Anxiety disorder, unspecified; D75.89 Other specified diseases of blood and blood-forming organs; R73.9 Hyperglycemia, unspecified; I49.3 Ventricular premature depolarization; R21 Rash and other nonspecific skin eruption; D64.9 Anemia, unspecified; E78.5 Hyperlipidemia, unspecified; E83.39 Other disorders of phosphorus metabolism; E83.42 Hypomagnesemia; E87.6 Hypokalemia; E88.09 Other disorders of plasma-protein metabolism, not elsewhere classified; W07.XXXA Fall from chair, initial encounter; Y92.230 Patient room in hospital as the place of occurrence of the external cause; R47.1 Dysarthria and anarthria; Z82.49 Family history of ischemic heart disease and other diseases of the circulatory system
CPT/HCPCS: 33967; 36556; 36600; 70450; 70496; 70498; 71045; 71250; 76937; 80048; 80053; 80061; 81001; 82310; 82550; 82552; 82805; 82810; 82948; 83036; 83605; 83735; 83880; 84100; 84132; 84443; 84484; 85014; 85018; 85025; 85027; 85384; 85610; 85730; 86850; 86900; 86901; 86920; 87641; 93005; 93306; 93308; 93318; 93460; 93880; 93970; 93998; 94002; 94010; 94150; 94640; 94664; 95819; 96361; 96365; 96375; 99152; 99153; C1768; C1769; C1893; C9113; C9399; J0131; J0690; J1250; J1644; J1815; J1817; J1885; J1940; J2250; J2270; J2370; J2405; J2440; J2720; J2930; J3010; J3370; J3475; J3480; J7030; J7050; J7060; J7120; P9045; Q9967